=== PATIENT | female | born 1980 | race Caucasian/White ===

== ENCOUNTER 2016-08-03 17:58 | Emergency (ER) | payer BC, OTHER ==
[~2016-08-03] VITALS: Ht 177.8 cm; Wt 90.7 kg
[~2016-08-03 17:58] MED LIST: CEPH250T PO; DICY20TA57 PO; DOXY100C2 PO; GABA-488 PO; IPRA3AMP19 IH; METH4TAB PO; OMEP20TA2 PO; ORPH100T PO; OXYC-191 PO; PRCD5U GT; PRD20T PO; SPIR25TA3; TRAM50TA2 PO
--- OUTSIDE RECORDS SUMMARY | 2016-08-03 18:04 | XMS REPORT | Continuity of Care Document ---
Author Author [facility] Organization [facility] Address Unknown Phone Unavailable Care Team Providers Care Forestry Professor Name Role Phone MARISEL IVY MD PCP Insurance Providers Payer Name Policy Number Subscriber Name Relationship [facility] [id number] Errol Ramos 17 Self / Same As Patient Advance Directives Directive Response Recorded Date/Time Advance Directives No 03/11/14 4:05pm Organ Donor No 03/11/14 4:05pm Resuscitation Status Full Code 03/11/14 4:05pm Problems Medical Problems Problem Onset Date Status Cervical radiculopathy due to intervertebral disc disorder Unknown Active Cervical radiculopathy at C5 Unknown Active Cervical radiculopathy at C6 Unknown Active Cervical radiculopathy due to intervertebral disc disorder Unknown Active Medications Medication Dose Route Sig Days/Qty Instructions Order Date Discontinued Date Status Doxycycline Hyclate (Vibramycin) 1 Each PO TWICE A DAY 10 Days 09/04/12 Discontinued Tramadol Hcl 50 Mg PO EVERY 6 HOURS 20 Qty 11/01/12 05/07/13 Discontinued Dicyclomine Hcl 1 Each PO BEFORE MEALS AND AT BEDTIME PRN 30 Qty 05/07/13 Discontinued Cephalexin Monohydrate (Keflex) 1 Each PO GIVE EVERY 6 HR ON SCHEDULE 3 Days 05/07/13 03/11/14 Discontinued Oxycodone Hcl/Acetaminophen 1 Tab PO EVERY 6 HOURS For PAIN 03/11/14 Active Gabapentin 300 Mg PO DAILY 03/11/14 Active Methylprednisolone 0 PO DIRECTED 1 Qty 03/11/14 Active Orphenadrine Citrate 100 Mg PO TWICE A DAY 10 Qty FOR MUSCLE SPASMS 03/11 Active Social History Social History Problem Response Recorded Date/Time Alcohol Use Denies Use 03/11/2014 4:05pm Recreational Drug Use No 03/11/2014 4:05pm Sexually Transmitted Disease No 03/11/2014 4:05pm Smoking Status Current Everyday Smoker 03/11/2014 4:05pm Query Response Start Date Stop Date Smoking Status Current Everyday Smoker Hospital Discharge Instructions No hospital discharge instructions. Plan of Care No plan of care. Functional Status No functional status results. Allergies, Adverse Reactions, Alerts Allergen Type Severity Reaction Status Last Updated Penicillins ([id number]) Allergy Mild Active 09/03/12 Immunizations Name Given Type Tetanus Booster (TDap) More than 5yrs Historical Vital Signs Acute Vital Signs Vital Response Date/Time Temperature (Fahrenheit) 98.4 degrees F (97.6 - 99.5) Temperature (Calculated Celsius) 36.62590 degrees C (36.4 - 37.5) Pulse Rate (adult) 80 bpm (60 - 90) Respiratory Rate 20 bpm (12 - 24) O2 Sat by Pulse Oximetry 97 % (88 - 100) Blood Pressure 117/72 mm Hg Pain Pain Intensity 7 Height (Feet) 5 feet Height (Inches) 10 inches Height (Calculated Centimeters) 177.714941 cm Weight (Pounds) 200 pounds Weight (Calculated Kilograms) 90.633851 kilograms Calculated BMI 28.69 Results Test Source Date Result Interp. Ref. Range Comments Acetaminophen Screen January 30, 2009 4:22am NEGATIVE - APAP= ACETAMINOPHEN/PARACETAMOL Activated Partial Thromboplast Time March 11, 2014 4:15pm 28 SEC N 24- 35 Alanine Aminotransferase (ALT/SGPT) March 11, 2014 4:15pm 13 U/L N 0- 55 Albumin March 11, 2014 4:15pm 3.8 G/DL N 3.2-4.5 Alkaline Phosphatase March 11, 2014 4:15pm 64 U/L N 40-136 Amylase Level March 11, 2014 4:15pm 40 U/L N 25-125 Anti-Nuclear Antibody Screen May 24, 2013 11:26am <1:80 - IF KRISTIE SCREEN POSITIVE TITER AND PATTERN WILL FOLLOW.Interpretative data is available online at: [email or web address] Test Number:[id number] Aspartate Amino Transf (AST/SGOT) March 11, 2014 4:15pm 13 U/L N 5-34 B-Type Natriuretic Peptide January 30, 2009 4:10am < 5.0 PG/ML L 5.0-100.0 BUN/Creatinine Ratio March 11, 2014 4:15pm 12 - Basophils # (Auto) March 11, 2014 4:15pm 0.0 10^3/uL N 0.0-0.1 Basophils (%) (Auto) March 11, 2014 4:15pm 0 % N 0-10 Blood Urea Nitrogen March 11, 2014 4:15pm 9 MG/DL N 7-18 C-Reactive Protein May 24, 2013 11:26am 0.5 MG/DL N 0.2-0.9 Calcium Level March 11, 2014 4:15pm 9.4 MG/DL N 8.5-10.1 Carbon Dioxide Level March 11, 2014 4:15pm 24 MMOL/L N 21-32 Chloride Level March 11, 2014 4:15pm 107 MMOL/L N 98-107 Creatine Kinase MB March 11, 2014 4:15pm 1.0 NG/ML - Creatinine March 11, 2014 4:15pm 0.74 MG/DL N 0.60-1.30 Eosinophils # (Auto) March 11, 2014 4:15pm 0.1 10^3/uL N 0.0-0.3 Eosinophils (%) (Auto) March 11, 2014 4:15pm 1 % N 0-10 Glucose Level March 11, 2014 4:15pm 106 MG/DL H 70-105 Hematocrit March 11, 2014 4:15pm 40 % N 35-52 Hemoglobin March 11, 2014 4:15pm 14.7 G/DL N 11.5-16.0 Lipase March 11, 2014 4:15pm 36 U/L N 8-78 Lymphocytes # (Auto) March 11, 2014 4:15pm 4.1 X 10^3 H 1.0-4.0 Lymphocytes (%) (Auto) March 11, 2014 4:15pm 46 % H 12-44 Magnesium Level September 04, 2012 12:10am 1.9 MG/DL N 1.8-2.4 Has specimen been collected/obtained? Y Mean Corpuscular Hemoglobin March 11, 2014 4:15pm 31 PG N 25-34 Mean Corpuscular Hemoglobin Concent March 11, 2014 4:15pm 36 G/DL N 32- 36 Mean Corpuscular Volume March 11, 2014 4:15pm 86 FL N 80-99 Mean Platelet Volume March 11, 2014 4:15pm 9.5 FL N 7.4-10.4 Monocytes # (Auto) March 11, 2014 4:15pm 0.5 X 10^3 N 0.0-1.0 Monocytes (%) (Auto) March 11, 2014 4:15pm 5 % N 0-12 Myoglobin September 04, 2012 12:10am 20 UG/L N 10-92 Has specimen been collected/obtained? Y Neutrophils # (Auto) March 11, 2014 4:15pm 4.3 X 10^3 N 1.8-7.8 Neutrophils (%) (Auto) March 11, 2014 4:15pm 48 % N 42-75 Platelet Count March 11, 2014 4:15pm 290 10^3/uL N 130-400 Potassium Level March 11, 2014 4:15pm 3.7 MMOL/L N 3.6-5.0 Prothromb Time International Ratio September 04, 2012 12:10am 1.0 N 0.8- 1.4 INTERPRETIVE DATASUGGESTED THERAPEUTIC RANGE FOR INR'S : VENOUS THROMBOSIS, PULMONARY EMBOLISM, OR PREVENTION OF SYSTEMIC EMBOLISM (EG. IN ATRIAL FIBRILLATION): 2.0 - 3.0 MECHANICAL PROSTHETIC HEART VALVES: 2.5 - 3.5* *NOTE: INR'S UP TO 4.5 MAY BE NECESSARY IN SELECTED GROUPS OF HIGH RISK PATIENTS. [employer] CONSENSUS CONFERENCE ON ANTITHROMBOTIC THERAPY (2000). Prothrombin Time March 11, 2014 4:15pm 12.3 SEC N 12.2-14.7 Red Blood Count March 11, 2014 4:15pm 4.68 10^6/uL N 4.35-5.85 Red Cell Distribution Width March 11, 2014 4:15pm 11.3 % N 10.0-14.5 Rheumatoid Factor May 24, 2013 11:26am NEGATIVE - Serum Test, Qualitative January 30, 2009 4:10am NEGATIVE - Sodium Level March 11, 2014 4:15pm 140 MMOL/L N 135-145 TSH [place] Testing December 04, 2013 10:01am 2.85 UIU/ML N 0.34-5.60 Thyroid Stimulating Hormone (TSH) September 04, 2012 12:10am 8.56 UIU/ML H 0.34-5.60 Total Bilirubin March 11, 2014 4:15pm 0.3 MG/DL N 0.1-1.0 Total Creatine Kinase March 11, 2014 4:15pm 39 U/L N 29-168 Total Protein March 11, 2014 4:15pm 6.9 G/DL N 6.4-8.2 Troponin I March 11, 2014 4:15pm < 0.30 NG/ML - Ur Tricyclic Antidepressants Screen January 30, 2009 4:22am NEGATIVE - Urine Amorphous Sediment January 30, 2009 4:22am RARE MICHAEL URATES H - Has specimen been collected/obtained? YSpecimen Description CLEAN CATCH Urine Amphetamines Screen January 30, 2009 4:22am NEGATIVE - Urine Bacteria November 01, 2012 3:10am TRACE /HPF - Has specimen been collected/obtained? YSpecimen Description CLEAN CATCH Urine Barbiturates Screen January 30, 2009 4:22am NEGATIVE - Urine Benzodiazepines Screen January 30, 2009 4:22am NEGATIVE - Urine Bilirubin November 01, 2012 3:10am NEGATIVE - Has specimen been collected/obtained? YSpecimen Description CLEAN CATCH Urine Casts November 01, 2012 3:10am NONE /LPF - Has specimen been collected/obtained? YSpecimen Description CLEAN CATCH Urine Clarity November 01, 2012 3:10am SLIGHTLY CLOUDY - Has specimen been collected/obtained? YSpecimen Description CLEAN CATCH Urine Cocaine Screen January 30, 2009 4:22am NEGATIVE - Urine Color November 01, 2012 3:10am YELLOW - Has specimen been collected/obtained? YSpecimen Description CLEAN CATCH Urine Crystals November 01, 2012 3:10am NONE /LPF - Has specimen been collected/obtained? YSpecimen Description CLEAN CATCH Urine Culture Indicated November 01, 2012 3:10am NO - Has specimen been collected/obtained? YSpecimen Description CLEAN CATCH Urine Glucose (UA) November 01, 2012 3:10am NEGATIVE - Has specimen been collected/obtained? YSpecimen Description CLEAN CATCH Urine Ketones November 01, 2012 3:10am NEGATIVE - Has specimen been collected/obtained? YSpecimen Description CLEAN CATCH Urine Leukocyte Esterase November 01, 2012 3:10am TRACE H - Has specimen been collected/obtained? YSpecimen Description CLEAN CATCH Urine Methamphetamines Screen January 30, 2009 4:22am NEGATIVE - Urine Mucus November 01, 2012 3:10am MODERATE /LPF H - Has specimen been collected/obtained? YSpecimen Description CLEAN CATCH Urine Nitrite November 01, 2012 3:10am NEGATIVE - Has specimen been collected/obtained? YSpecimen Description CLEAN CATCH Urine Opiates Screen January 30, 2009 4:22am NEGATIVE - Urine Phencyclidine Screen January 30, 2009 4:22am NEGATIVE - Phencyclidine testing by this method can showcross-reactivity with several common medications such as venlafaxine, dextromethorphan, and diphenhydramine. Submission of any positive sample for confirmatory testing is recommended. Urine Protein November 01, 2012 3:10am NEGATIVE - Has specimen been collected/obtained? YSpecimen Description CLEAN CATCH Urine RBC November 01, 2012 3:10am NONE /HPF - Has specimen been collected/obtained? YSpecimen Description CLEAN CATCH Urine Specific [place] November 01, 2012 3:10am 1.030 H - Has specimen been collected/obtained? YSpecimen Description CLEAN CATCH Urine Squamous Epithelial Cells November 01, 2012 3:10am 25-50 /HPF H - Has specimen been collected/obtained? YSpecimen Description CLEAN CATCH Urine Urobilinogen November 01, 2012 3:10am NORMAL MG/DL - Has specimen been collected/obtained? YSpecimen Description CLEAN CATCH Urine WBC November 01, 2012 3:10am RARE /HPF - Has specimen been collected/obtained? YSpecimen Description CLEAN CATCH Urine pH November 01, 2012 3:10am 5 - Has specimen been collected/ obtained? YSpecimen Description CLEAN CATCH White Blood Count March 11, 2014 4:15pm 9.1 10^3/uL N 4.3-11.0 Pro-B-Type Natriuretic Peptide March 11, 2014 4:15pm < 10.0 PG/ML - 125.0 Lab Scanned Report September 03, 2012 11:09pm LAB Reports [id number] - Estimat Glomerular Filtration Rate March 11, 2014 4:15pm > 60 - GFR INTERPRETIVE DATA UNITS FOR ESTIMATED GFR (eGFR): mL/min/1.73 M2 REFERENCE RANGE FOR ESTIMATED GFR (eGFR) eGFR NORMAL eGFR >60 MODERATELY DECREASED eGFR 30-59 SEVERLY DECREASED eGFR 15-29 KIDNEY FAILURE <15 (OR DIALYSIS) Urine Methadone Screen January 30, 2009 4:22am NEGATIVE - Creatine Kinase September 04, 2012 12:10am 30 U/L N 1-159 Has specimen been collected/obtained? Y Urine Cannabinoids Screen January 30, 2009 4:22am NEGATIVE - Cardiac Panel Pathologist Review September 04, 2012 12:10am SEE CARDIAC PATH REV - Has specimen been collected/obtained? Y Urine RBC (Auto) November 01, 2012 3:10am 2+ H - Has specimen been collected/obtained? YSpecimen Description CLEAN CATCH INR Comment March 11, 2014 4:15pm 0.9 N 0.8-1.4 INTERPRETIVE DATASUGGESTED THERAPEUTIC RANGE FOR INR'S: VENOUS THROMBOSIS, PULMONARY EMBOLISM, OR PREVENTION OF SYSTEMIC EMBOLISM (EG. IN ATRIAL FIBRILLATION): 2.0 - 3.0 MECHANICAL PROSTHETIC HEART VALVES: 2.5 - 3.5* *NOTE: INR'S UP TO 4.5 MAY BE NECESSARY IN SELECTED GROUPS OF HIGH RISK PATIENTS. [employer] CONSENSUS CONFERENCE ON ANTITHROMBOTIC THERAPY (2000). Procedures Procedure Status Date Provider(s) Tracing only of electrocardiogram completed 03/11/14 LONNIE LUTZ DO Encounters Encounter Location Date/Time Departed Emergency Room Via [facility] 03/11/14 3:49pm Recent Diagnosis
[2016-08-03] MEDS ORDERED: SPIR50TA2 (19:13)
[2016-08-03 19:39] LABS: BILIRUBIN,URINE NEGATIVE (NEGATIVE); KETONES,URINE NEGATIVE (NEGATIVE); LEUKOCYTE ESTERASE ,URINE NEGATIVE (NEGATIVE); NITRITE,URINE NEGATIVE (NEGATIVE); PH,URINE 6 (5-9); PROTEIN,URINE NEGATIVE (NEGATIVE); UROBILINOGEN,URINE NORMAL (NORMAL)
[2016-08-03 19:48] LABS: WBC,URINE RARE /HPF
[2016-08-03 20:29] LABS: BASOPHILS % (AUTO) 0 % (0-10); EOSINOPHILS # (AUTO) 0.2 10^3/uL (0.0-0.3); EOSINOPHILS % (AUTO) 1 % (0-10); LYMPHOCYTES # (AUTO) 4.5 X 10^3 (1.0-4.0); LYMPHOCYTES % (AUTO) 34 % (12-44); MEAN CORPUSCULAR HEMOGLOBIN 30 PG (25-34); MEAN CORPUSCULAR HGB CONC 36 G/DL (32-36); MEAN CORPUSCULAR VOLUME 84 FL (80-99); MEAN PLATELET VOLUME 8.9 FL (7.4-10.4); MONOCYTES # (AUTO) 0.8 X 10^3 (0.0-1.0); MONOCYTES % (AUTO) 6 % (0-12); NEUTROPHILS # (AUTO) 7.8 X 10^3 (1.8-7.8); NEUTROPHILS % (AUTO) 59 % (42-75); PLATELET COUNT 327 10^3/uL (130-400); RED BLOOD COUNT 5.08 10^6/uL (4.35-5.85); RED CELL DISTRIBUTION WIDTH 11.8 % (10.0-14.5); WHITE BLOOD COUNT 13.3 10^3/uL (4.3-11.0)
[2016-08-03] MEDS ORDERED: ONDANSETRON 4 MG/2 ML (SDV) Z0FRAN IVP ONE (20:30)
[2016-08-03 20:50] LABS: ALANINE AMINOTRANSFERASE 21 U/L (0-55); ALBUMIN 4.3 G/DL (3.2-4.5); AMYLASE 49 U/L (25-125); ANION GAP 10 MMOL/L (5-14); ASPARTATE AMINO TRANSFERASE 15 U/L (5-34); BILIRUBIN,TOTAL 0.4 MG/DL (0.1-1.0); BLOOD UREA NITROGEN 8 MG/DL (7-18); BUN/CREATININE RATIO 11; CALCIUM 9.6 MG/DL (8.5-10.1); CARBON DIOXIDE 23 MMOL/L (21-32); CHLORIDE 106 MMOL/L (98-107); CREATININE SERUM 0.76 MG/DL (0.60-1.30); GFR ESTIMATED > 60; GLUCOSE 90 MG/DL (70-105); LIPASE 44 U/L (8-78); POTASSIUM 4.1 MMOL/L (3.6-5.0); SODIUM 139 MMOL/L (135-145); TOTAL PROTEIN 7.4 G/DL (6.4-8.2)
[2016-08-03] MEDS ORDERED: LACTATED RINGERS 1,000 ML IV ONE (20:54)
--- NOTE | 2016-08-03 21:50 | Diagnostic Imaging Report ---
INDICATION: Left-sided chest pain. Comparison with 11/25/2015. FINDINGS: Lungs are clear. No evidence of free air under the diaphragm. There is moderate amount of stool present throughout the colon from the cecum to the descending colon. No organomegaly. Surgical clips noted in the biliary fossa. No pathologic calcification. IUD is present in the pelvis in the midline. No bony abnormalities. IMPRESSION: Moderate stool retention in the ascending and transverse colon with otherwise normal abdominal series. Dictated by: Dictated on workstation # [id number]
[2016-08-03] MEDS ORDERED: NS 100 ML (IVPB) BAG IV ONE (22:00)
[2016-08-03] MEDS ORDERED: IOHEXOL 350 MG/ML 100 ML (OMNIPAQUE 350) VIAL IV ONE (22:00)
--- NOTE | 2016-08-03 22:02 | Diagnostic Imaging Report ---
PROCEDURE: CT abdomen and pelvis with contrast. TECHNIQUE: Multiple contiguous axial images were obtained through the abdomen and pelvis after administration of intravenous contrast. INDICATION: Left-sided pain and epigastric pain. FINDINGS: The lung bases are clear. Liver appears normal. Bile ducts are nondilated. Gallbladder is absent. Pancreas is normal. Spleen appears normal. The adrenal glands are normal. The kidneys appear normal. There is normal enhancement of the abdominal organs and vessels following IV contrast. No evidence of aortic aneurysm or dissection. No intra-abdominal adenopathy of pathologic size. The stomach appears normal. No evidence of hiatal hernia. Small bowel pattern is normal. Colon shows normal stool and gas pattern throughout. The appendix is normal in appearance. The colon shows a few diverticuli with no evidence of diverticulitis. Uterus appears normal with IUD present within the uterine cavity. No adnexal masses. No free air or free fluid. No bony abnormalities. IMPRESSION: No acute abnormalities noted within the abdomen. Dictated by: Dictated on workstation # [id number]
[2016-08-03] MEDS ORDERED: RX-DICYCLOMINE 10 MG (BENTYL) CAP PPK#4 PO STA (22:18)
[2016-08-03] MEDS ORDERED: RX-ONDANSETRON 4 MG ODT (ZOFRAN) PPK #4 PO STA (22:18)
[2016-08-03] MEDS ORDERED: PANT40TA2 PO (22:22)
[2016-08-03] MEDS ORDERED: DICY10CA59 PO (22:22)
[2016-08-03] MEDS ORDERED: ONDA4TAB8 PO (22:22)
--- NOTE | 2016-08-03 22:22 | ED Abdominal Pain ---
General Chief Complaint: Abdominal/GI Problems Stated Complaint: ABD PAIN,NAUSEA Nursing Triage Note: c/o epigastric pain and burning for a couple weeks, reports pain is worse when laying down. states tried to get into Dr. the past couple days but wasn't able to be seen. Sepsis Screen: No Definite Risk Source of Information: Patient History of Present Illness Time Seen By Provider: 19:35 Initial Comments PT C/O EPIGASTRIC, LEFT UPPER QUADRANT AND LEFT FLANK PAIN SINCE 07/20/16 PAIN WAS OFF AND ON AND HAS GRADUALLY BECOME CONSTANT, AND IS WORSE WITH MOVEMENTS, AFTER EATING OR DRINKING OR AFTER BM PAIN IS WORSE SINCE 07/27/16 C/O NAUSEA, NO VOMITING. ATE BREAKFAST AND LUNCH, BUT NOT DINNER. NO DIARRHEA--HAD 2 NORMAL BM'S TODAY. STATES NORMALLY SHE ONLY HAS A BM EVERY 3 DAYS. NO FEVER NO URINARY SYMPTOMS AND VOIDING A NORMAL AMOUNT NO SICK CONTACTS OR SUSPICIOUS FOODS HAS TAKEN NOTHING FOR PAIN PT STATES SHE HASN'T BEEN SLEEPING MUCH DUE TO PAIN PT BRINGS IN A LIST OF COMPLAINTS/DATES/TIMES WELL DETAILED SLEEP HABITS. PT CALLED DR. IVY'S OFFICE YESTERDAY, BUT COULD NOT GET IN YESTERDAY OR TODAY , BUT DID NOT MAKE AN APPOINTMENT FOR ANY OTHER TIME. LMP 1 MONTH AGO, NORMAL. PT HAS IUD IN PLACE Allergies and Home Medications Allergies Coded Allergies: Penicillins (Verified Allergy, Mild, 05/29/16) sulfamethoxazole (Unverified Allergy, Unknown, 05/29/16) trimethoprim (Unverified Allergy, Unknown, 05/29/16) Home Medications Dicyclomine HCl 10 Mg Capsule #15 10 MG PO Q6H PRN PRN ABDOMINAL PAIN Prescribed by: LONNIE LUTZ on 08/03/162221 Ondansetron 4 Mg Tab.rapdis #10 4 MG PO Q4H Prescribed by: LONNIE LUTZ on 08/03/162221 Pantoprazole Sodium 40 Mg Tablet.dr #15 40 MG PO DAILY Prescribed by: LONNIE LUTZ on 08/03/162221 Spironolactone 50 Mg Tablet #30 (Reported) Review of Systems Constitutional: no symptoms reported Respiratory: No Symptoms Reported Cardiovascular: No Symptoms Reported Gastrointestinal: See HPI Abdominal PainDenies Constipated, Denies Diarrhea, NauseaDenies Poor Appetite, Denies Poor Fluid Intake, Denies Vomiting Past [place]-Ahyjow-Dxiojn Hx Patient Social History Alcohol Use: Denies Use Recreational Drug Use: No Smoking Status: Former Smoker (1 PACK/WEEK--QUIT 2013) Recent Foreign Travel: No Contact w/Someone Who Travel: No Recent Infectious Disease Expo: No Recent Hopitalizations: No Physical Abuse Screen: No Sexual Abuse: No Immunizations Up To Date Tetanus Booster (TDap): More than 5yrs Seasonal Allergies Seasonal Allergies: No Surgeries HX 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 ; NECK; X 2) Surgeries: Section, Gallbladder, Orthopedic Respiratory Hx Respiratory Disorders: No Cardiovascular Hx Cardiac Disorders: No Neurological Hx Neurological Disorders: No Reproductive System Hx Reproductive Disorders: Yes (TAKES SPIRONOLACTONE TO "REGULATE HORMONES" ) Sexually Transmitted Disease: No Female Reproductive Disorders: Menstrual Problems CIVIL ATTORNEY History: IUD Genitourinary Hx Genitourinary Disorders: No Gastrointestinal Hx Gastrointestinal Disorders: Yes Gastrointestinal Disorders: Gall Bladder Disease Musculoskeletal Hx Musculoskeletal Disorders: Yes (SPINAL STENOSIS) Musculoskeletal Disorders: Degenerate Disk Disease, Chronic Back Pain Endocrine Hx Endocrine Disorders: No HEENT HX ENT Disorders: No Cancer Hx Cancer: No Psychosocial Hx Psychiatric Problems: No Integumentary HX Skin/Integumentary Disorder: No Blood Transfusions Hx Blood Disorders: No Family Medical History Significant Family History: Heart Disease, Cancer, Diabetes Physical Exam Vital Signs VS - Last 72 Hours, by Label 08/03/16 08/03/16 19:11 22:36 Temp 98.8 Pulse 84 82 Resp 18 16 B/P 166/79 Pulse Ox 97 99 Capillary Refill : Less Than 3 Seconds General Appearance: WD/WN no apparent distress other (DOES NOT APPEAR TO BE IN ANY DISCOMFORT--SITTING ON BED WITH LEGS DANGLING OVER THE SIDE. WALKS UPRIGHT AND MOVES WITHOUT DIFFICULTY) HEENT: PERRL/EOMINo scleral icterus (R), No scleral icterus (L) Neck: normal inspection Respiratory: normal breath sounds no respiratory distress no accessory muscle use Cardiovascular: normal peripheral pulses regular rate, rhythm no edema no JVD no murmur Gastrointestinal: normal bowel sounds soft no organomegaly no pulsatile massNo distended, No guarding, No rebound, tenderness (MILD, DIFFUSE UPPER ABDOMINAL TENDERNESS. 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 no motor/sensory deficits alert normal mood/affect oriented x 3 Skin: normal color warm/dryNo rash Progress/Results/Core Measures Results/Orders Lab Results Laboratory Tests Test 08/03/16 19:15 08/03/16 20:23 Range/Units Urine Bacteria TRACE /HPF Urine Bilirubin NEGATIVE NEGATIVE Urine Casts NONE /LPF Urine Clarity CLEAR Urine Color YELLOW Urine Crystals NONE /LPF Urine Culture Indicated NO Urine Glucose (UA) NEGATIVE NEGATIVE Urine Ketones NEGATIVE NEGATIVE Urine Leukocyte Esterase NEGATIVE NEGATIVE Urine Mucus NEGATIVE /LPF Urine Nitrite NEGATIVE NEGATIVE Urine Protein NEGATIVE NEGATIVE Urine RBC RARE /HPF Urine RBC (Auto) 2+ H NEGATIVE Urine Specific [place] 1.010 L 1.016-1.022 Urine Squamous Epithelial Cells 2-5 /HPF Urine Urobilinogen NORMAL NORMAL MG/DL Urine WBC RARE /HPF Urine pH 6 5-9 Alanine Aminotransferase (ALT/SGPT) 21 0-55 U/L Albumin 4.3 3.2-4.5 G/DL Alkaline Phosphatase 91 40-136 U/L Amylase Level 49 25-125 U/L Anion Gap 10 5-14 MMOL/L Aspartate Amino Transf (AST/SGOT) 15 5-34 U/L BUN/Creatinine Ratio 11 Basophils # (Auto) 0.0 0.0-0.1 10^3/uL Basophils (%) (Auto) 0 0-10 % Blood Urea Nitrogen 8 7-18 MG/DL Calcium Level 9.6 8.5-10.1 MG/DL Carbon Dioxide Level 23 21-32 MMOL/L Chloride Level 106 98-107 MMOL/L Creatinine 0.76 0.60-1.30 MG/DL Eosinophils # (Auto) 0.2 0.0-0.3 10^3/uL Eosinophils (%) (Auto) 1 0-10 % Estimat Glomerular Filtration Rate > 60 Glucose Level 90 70-105 MG/DL Hematocrit 43 35-52 % Hemoglobin 15.4 11.5-16.0 G/DL Lipase 44 8-78 U/L Lymphocytes # (Auto) 4.5 H 1.0-4.0 X 10^3 Lymphocytes (%) (Auto) 34 12-44 % Mean Corpuscular Hemoglobin 30 25-34 PG Mean Corpuscular Hemoglobin Concent 36 32-36 G/DL Mean Corpuscular Volume 84 80-99 FL Mean Platelet Volume 8.9 7.4-10.4 FL Monocytes # (Auto) 0.8 0.0-1.0 X 10^3 Monocytes (%) (Auto) 6 0-12 % Neutrophils # (Auto) 7.8 1.8-7.8 X 10^3 Neutrophils (%) (Auto) 59 42-75 % Platelet Count 327 130-400 10^3/uL Potassium Level 4.1 3.6-5.0 MMOL/L Red Blood Count 5.08 4.35-5.85 10^6/uL Red Cell Distribution Width 11.8 10.0-14.5 % Sodium Level 139 135-145 MMOL/L Total Bilirubin 0.4 0.1-1.0 MG/DL Total Protein 7.4 6.4-8.2 G/DL White Blood Count 13.3 H 4.3-11.0 10^3/uL My Orders Orders-LONNIE LUTZ DO Ua Culture If Indicated (08/03/16 19:35) Saline Lock/Iv-Start (08/03/16 19:53) Amylase (08/03/16 19:53) Cbc With Automated Diff (08/03/16 19:53) Comprehensive Metabolic Panel (08/03/16 19:53) Lipase (08/03/16 19:53) Ondansetron Injection (Zofran Injectio (08/03/16 20:30) Saline Lock/Iv-Start (08/03/16 20:54) Lactated Ringers (Lr 1000 Ml Iv Solution (08/03/16 20:54) Acute Abd Series (08/03/16 21:19) Ct Abdomen/Pelvis W (08/03/16 21:19) Iohexol Injection (Omnipaque 350 Mg/Ml 1 (08/03/16 22:00) Ns (Ivpb) (Sodium Chloride 0.9% Ivpb Bag (08/03/16 22:00) Rx-Dicyclomine Capsule (Rx-Bentyl Capsul (08/03/16 22:18) Rx-Ondansetron Po (Rx-Zofran Po) (08/03/16 22:18) Ketorolac Injection (Toradol Injection) (08/03/16 22:30) Pantoprazole Tablet (Protonix Tablet) (08/03/16 22:30) Medications Given in ED Current Medications Medications Dose Ordered Sig/Jacklyn Route Start Time Stop Time Status Last Admin Dose Admin Ketorolac Tromethamine 30 mg ONCE ONCE IVP 08/03/16 22:30 08/03/16 22:31 DC 08/03/16 22:25 30 MG Lactated Ringer's 1,000 ml @ 0 mls/hr Q0M ONCE IV 08/03/16 20:54 08/03/16 20:55 DC 08/03/16 21:04 0 MLS/HR Ondansetron HCl 4 mg 4 mg ONCE ONCE IVP 08/03/16 20:30 08/03/16 20:31 DC 08/03/16 21:04 4 MG Pantoprazole Sodium 40 mg ONCE ONCE PO 08/03/16 22:30 08/03/16 22:31 DC 08/03/16 22:25 40 MG Vital Signs/I&O Vital Sign - Last 12Hours 08/03/16 08/03/16 19:11 22:36 Temp 98.8 Pulse 84 82 Resp 18 16 B/P 166/79 Pulse Ox 97 99 Blood Pressure Mean: 108 Diagnostic Imaging Comments ACUTE ABDOMEN XRAYS--NO ACUTE PROCESS CT ABDOMEN/PELVIS--NO ACUTE PROCESS, MODERATE AMOUNT OF STOOL IN ASCENDING AND TRANSVERSE COLON PER RADIOLOGIST REPORTS @ 2214 Reviewed: Reviewed by Me Departure Impression Impression: Primary Impression: ABDOMINAL PAIN Disposition: 01 HOME, SELF-CARE Condition: Improved Departure-Patient Inst. Referrals: MARISEL IVY MD (PCP/Family) Primary Care Physician Patient Instructions: Acute Abdomen (Belly Pain), Adult (DC) Add. Discharge Instructions: CLEAR LIQUIDS--WATER, BROTH, JELLO, GATORADE BRATS DIET--BANANAS, RICE, APPLESAUCE, TOAST, SALTINES FOLLOW UP WITH YOUR DR THIS WEEK FOR FURTHER CARE All discharge instructions reviewed with patient and/or family. Voiced understanding. Scripts Pantoprazole Sodium (Protonix)40 Mg Tablet.dr40 Mg PO DAILY #15 TAB Prov:BOLIVARLONNIE K DO 08/03/16 Dicyclomine HCl (Bentyl)10 Mg [id number] Mg PO Q6H PRN ABDOMINAL PAIN #15 CAP Prov:BOLIVAR,LONNIE K DO 08/03/16 Ondansetron (Zofran Odt)4 Mg Tab.rapdis4 Mg PO Q4H Nausea/Vomiting #10 TAB Prov:LONNIE LUTZ DO 08/03/16 LONNIE LUTZ DO Aug 03, 2016 22:22
[2016-08-03] MEDS ORDERED: KETOROLAC 30 MG/ML VIAL IVP ONE (22:30)
[2016-08-03] MEDS ORDERED: PANTOPRAZOLE 40 MG (PROTONIX) TAB PO ONE (22:30)
[2016-08-03 22:36] VITALS: BP 114/69
== END 2016-08-03 22:43 | disposition home or self-care (01) ==
LOC: EDUNIT# 17:58 → ER 18:00
DX: R10.12 Left upper quadrant pain (principal); R10.13 Epigastric pain; K59.00 Constipation, unspecified; R11.0 Nausea
CPT/HCPCS: 36415; 74022; 74177; 80053; 81000; 82150; 83690; 85025; 96361; 96374; 96375

== ENCOUNTER 2016-10-30 22:57 | Emergency (ER) | payer BC ==
[~2016-10-30] VITALS: Ht 170.2 cm; Wt 86.2 kg
[~2016-10-30 22:57] MED LIST changes: +DICY10CA59 PO; +ONDA4TAB8 PO; +PANT40TA2 PO; +SPIR50TA2
[2016-10-30] MEDS ORDERED: TETANUS,DIPTH,PERTUSS P/F (BOOSTRIX) 0.5 ML VIAL IM STA (23:46)
--- NOTE | 2016-10-30 23:53 | ED Upper Extremity ---
General Chief Complaint: Laceration Stated Complaint: LEFT THUMB LACERATION Source: patient Exam Limitations: no limitations History of Present Illness Time seen by provider: 23:36 Initial Comments Here with complaint of laceration to the top of the left thumb. It's on the dorsal surface. Approximately 3 cm and superficial. No other injuries. Tetanus is not up-to-date. This was cut on a medication lid. Onset: just prior to arrival Severity: mild Pain/Injury Location: left thumb Method of Injury: incised Modifying Factors: Improves With Immobilization, Worse With Movement Allergies and Home Medications Allergies Coded Allergies: Penicillins (Verified Allergy, Mild, 05/29/16) sulfamethoxazole (Unverified Allergy, Unknown, 05/29/16) trimethoprim (Unverified Allergy, Unknown, 05/29/16) Home Medications Dicyclomine HCl 10 Mg Capsule, 10 MG PO Q6H PRN for ABDOMINAL PAIN, #15 Prescribed by: LONNIE LUTZ on 08/03/16 2222 Ondansetron 4 Mg Tab.rapdis, 4 MG PO Q4H, #10 Prescribed by: LONNIE LUTZ on 08/03/16 2222 Pantoprazole Sodium 40 Mg Tablet.dr, 40 MG PO DAILY, #15 Prescribed by: LONNIE LUTZ on 08/03/16 2222 Spironolactone 50 Mg Tablet, #30 (Reported) Constitutional: see HPI Respiratory: no symptoms reported Cardiovascular: no symptoms reported Skin: see HPI, lesions Psychiatric/Neurological: Denies Numbness, Denies Tingling, Denies Weakness Past Ezjphps-Vkfire-Vitvsn Hx Patient Social History Alcohol Use: Denies Use Recreational Drug Use: No Smoking Status: Never a Smoker Recent Foreign Travel: No Contact w/Someone Who Travel: No Recent Hopitalizations: No Immunizations Up To Date Tetanus Booster (TDap): Unknown Seasonal Allergies Seasonal Allergies: No Surgeries HX 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 ; NECK; X 2) Surgeries: Section, Gallbladder, Orthopedic Respiratory Hx Respiratory Disorders: No Cardiovascular Hx Cardiac Disorders: No Neurological Hx Neurological Disorders: No Reproductive System Hx Reproductive Disorders: Yes (TAKES SPIRONOLACTONE TO "REGULATE HORMONES" ) Sexually Transmitted Disease: No Female Reproductive Disorders: Menstrual 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 Genitourinary Hx Genitourinary Disorders: No Gastrointestinal Hx Gastrointestinal Disorders: Yes Gastrointestinal Disorders: Gall Bladder Disease Musculoskeletal Hx Musculoskeletal Disorders: Yes (SPINAL STENOSIS) Musculoskeletal Disorders: Degenerate Disk Disease, Chronic Back Pain Endocrine Hx Endocrine Disorders: No HEENT HX ENT Disorders: No Cancer Hx Cancer: No Psychosocial Hx Psychiatric Problems: No Integumentary HX Skin/Integumentary Disorder: No Blood Transfusions Hx Blood Disorders: No Reviewed Nursing Assessment Reviewed/Agree w Nursing PMH: Yes Family Medical History Significant Family History: Heart Disease, Cancer, Diabetes Physical Exam Vital Signs Vital Sign - Last 12Hours 10/30/16 23:40 Temp 97.8 Pulse 86 Resp 18 B/P (MAP) 105/82 Pulse Ox 100 O2 Delivery Room Air Capillary Refill : General Appearance: WD/WN, no apparent distress Cardiovascular: regular rate, rhythm, no murmur Respiratory: lungs clear, normal breath sounds Hand: Left, laceration (superficial laceration to the dorsum of the left thumb approximately 3 cm long.) Laceration Repair : Wound Location: Upper Extremities Other Wound Location Dorsum of left thumb Wound Length (cm): 3 Wound's Depth, Shape: superficial Other Closure Supply: Wound Adhesive Progress Wound is superficial. Skin glued applied for protective cover. This was done after patient wash hands thoroughly with soap and water. Progress/Results/Core Measures Results/Orders My Orders Orders - MICHAEL MCCLURE MD Dipht,Kristian(Acell),Tet Adult (Boostrix (10/30/16 23:46) Vital Signs/I&O Vital Sign - Last 12Hours 10/30/16 23:40 Temp 97.8 Pulse 86 Resp 18 B/P (MAP) 105/82 Pulse Ox 100 O2 Delivery Room Air Progress Note : Progress Note Seen and evaluated. Skin going to the left thumb. Tetanus ordered but found to be given in 2012 so did not needed. This was canceled. Discharged home with return precautions. Patient verbalize understanding instructions and agreement with plan. Departure Impression Impression: Primary Impression: Thumb laceration Qualified Codes: S61.012A - Laceration without foreign body of left thumb without damage to nail, initial encounter Disposition: HOME, SELF-CARE Condition: Improved Departure-Patient Inst. Decision time for Depature: 23:52 Referrals: MARISEL IVY MD (PCP/Family) Primary Care Physician Patient Instructions: Laceration Repair With Glue (DC) Add. Discharge Instructions: All discharge instructions reviewed with patient and/or family. Voiced understanding. You may use splint for the next few days to prevent skin glue from prematurely coming off. Do not use antibiotics or lotions on the wound. You may shower but do not scrub vigorously. Do not soak hands for prolonged period in any body of water. Return for worse pain, swelling, red streaks up the hand, fever or other concerns as needed. Follow-up with your doctor as needed. MICHAEL MCCLURE MD Oct 30, 2016 23:53
[2016-10-31 00:20] VITALS: BP 105/82
== END 2016-10-31 00:20 | disposition home or self-care (01) ==
LOC: EDUNIT# 22:57 → ER 22:59
DX: S61.012A Laceration without foreign body of left thumb without damage to nail, initial encounter (principal); W45.8XXA Other foreign body or object entering through skin, initial encounter; Y99.8 Other external cause status

== ENCOUNTER 2017-11-19 10:14 | Emergency (ER) | payer BC ==
[~2017-11-19] VITALS: Ht 172.7 cm; Wt 88.5 kg
[2017-11-19 10:53] LABS: BILIRUBIN,URINE NEGATIVE (NEGATIVE); COLOR,URINE RED; GLUCOSE, URINE (UA) NEGATIVE (NEGATIVE); KETONES,URINE NEGATIVE (NEGATIVE); LEUKOCYTE ESTERASE ,URINE 3+ (NEGATIVE); NITRITE,URINE POSITIVE (NEGATIVE); PH,URINE 6.5 (5-9); PROTEIN,URINE 3+ (NEGATIVE); UROBILINOGEN,URINE NORMAL (NORMAL)
--- NOTE | 2017-11-19 10:54 | ED GU-Female ---
General Chief Complaint: -Female Stated Complaint: URINATING BLOOD Source: patient Exam Limitations: no limitations History of Present Illness Date Seen by Provider: November 19, 2017 Time Seen by Provider: 09:30 Initial Comments Here with report of dysuria with blood today. This is been going on for 5 days but worsened over the last 2. She had blood test and urine test on 15 November which did not show any significant findings. Noted the blood today with wiping. States that it hurts every time she urinates and feels like her typical urinary tract infection. Does have some nausea but no vomiting. Feels chills but no fever. Timing/Duration: getting worse Severity/Quality: mild, moderate, burning Location: suprapubic, urethral Radiation: suprapubic Activities at Onset: none Modifying Factors: Worsens With Urinating Associated Symptoms: abdominal pain, dysuria Allergies and Home Medications Allergies Coded Allergies: Penicillins (Verified Allergy, Mild, 05/29/16) sulfamethoxazole (Unverified Allergy, Unknown, 05/29/16) trimethoprim (Unverified Allergy, Unknown, 05/29/16) Patient Home Medication List Home Medication List Reviewed: Yes Review of Systems Constitutional: see HPI; No chills, No fever EENTM: no symptoms reported Respiratory: no symptoms reported Cardiovascular: no symptoms reported Gastrointestinal: nausea; No vomiting Genitourinary: dysuria, hematuria, pain : No Musculoskeletal: no symptoms reported Psychiatric/Neurological: No Symptoms Reported All Other Systemes Reviewed Negative Unless Noted: Yes Past Omwsduu-Ymezku-Jxtrnz Hx Past Med/Social Hx: Reviewed Nursing Past Med/Soc Hx Patient Social History Alcohol Use: Denies Use Recreational Drug Use: No Smoking Status: Never a Smoker Recent Foreign Travel: No Contact w/Someone Who Travel: No Recent Hopitalizations: No Immunizations Up To Date Tetanus Booster (TDap): Unknown Seasonal Allergies Seasonal Allergies: No Past Medical History Surgeries: Yes Section, Gallbladder, Orthopedic Reproductive Disorders: Yes (TAKES SPIRONOLACTONE TO "REGULATE HORMONES" ) Female 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 Sexually Transmitted Disease: No Gall Bladder Disease Musculoskeletal: Yes Degenerate Disk Disease, Chronic Back Pain Family Medical History Reviewed Nursing Family Hx Heart Disease, Cancer, Diabetes Physical Exam Vital Signs Vital Signs - First Documented 11/19/17 10:15 Temp 97.5 Pulse 96 Resp 16 B/P (MAP) 109/90 (96) Capillary Refill : General Appearance: WD/WN, no apparent distress Neck: full range of motion, supple Cardiovascular: regular rate, rhythm, no murmur Respiratory: lungs clear, normal breath sounds Gastrointestinal: soft, tenderness (mild suprapubic) Back: normal inspection, no CVA tenderness, no vertebral tenderness Extremities: non-tender, normal inspection Neurologic/Psychiatric: alert, oriented x 3 Progress/Results/Core Measures Suspected Sepsis SIRS Temperature: Pulse: Respiratory Rate: Blood Pressure / Mean: Results/Orders Lab Results Laboratory Tests Test 11/19/17 10:30 Range/Units Urine Color RED H Urine Clarity VERY CLOUDY H Urine pH 6.5 5-9 Urine Specific [place] 1.010 L 1.016-1.022 Urine Protein 3+ H NEGATIVE Urine Glucose (UA) NEGATIVE NEGATIVE Urine Ketones NEGATIVE NEGATIVE Urine Nitrite POSITIVE H NEGATIVE Urine Bilirubin NEGATIVE NEGATIVE Urine Urobilinogen NORMAL NORMAL MG/DL Urine Leukocyte Esterase 3+ H NEGATIVE Urine RBC (Auto) 5+ H NEGATIVE Urine RBC 25-50 H /HPF Urine WBC 50-100 H /HPF Urine Squamous Epithelial Cells RARE /HPF Urine Crystals NONE /LPF Urine Bacteria FEW H /HPF Urine Casts NONE /LPF Urine Mucus NEGATIVE /LPF Urine Culture Indicated YES My Orders Orders - MICHAEL MCCLURE MD Ua Culture If Indicated (11/19/17 10:19) Urine Culture (11/19/17 10:30) Ibuprofen Tablet (Motrin Tablet) (11/19/17 11:17) Phenazopyridine Tablet (Pyridium Tablet) (11/19/17 11:17) Vital Signs/I&O 11/19/17 10:15 Temp 97.5 Pulse 96 Resp 16 B/P (MAP) 109/90 (96) Capillary Refill : Progress Note : Progress Note Seen and evaluated. UA ordered. Monitor patient. UTI noted. Peridium and ibuprofen ordered for pain. We will treat as outpatient. Discharged home with return precautions. Patient verbalize understanding instructions and agreement with plan. Departure Impression Primary Impression: Urinary tract infection Qualified Codes: N30.01 - Acute cystitis with hematuria Disposition: HOME, SELF-CARE Condition: Improved Departure-Patient Inst. Decision time for Depature: 11:27 Referrals: MARISEL IVY MD (PCP/Family) Primary Care Physician Patient Instructions: Urinary Tract Infection, Adult (DC) Add. Discharge Instructions: All discharge instructions reviewed with patient and/or family. Voiced understanding. Take medications as directed. Follow up with your Dr. in a few days for recheck. Return for worse pain, fever, vomiting, weakness, breathing problems or other concerns as needed. Drink plenty of fluids. Scripts Phenazopyridine HCl (Pyridium) 100 Mg Tablet 100 MG PO TID PRN for PAIN-MILD TO MODERATE, #6 TAB Prov: MICHAEL MCCLURE MD 11/19/17 Nitrofurantoin Macrocrystal (Nitrofurantoin) 100 Mg Capsule 100 MG PO BID, #14 CAP 0 Refills Prov: MICHAEL MCCLURE MD 11/19/17 MICHAEL MCCLURE MD November 19, 2017 10:54
[2017-11-19 11:07] LABS: CLARITY,URINE VERY CLOUDY
[2017-11-19 11:08] LABS: BACTERIA,URINE FEW /HPF; RBC,URINE 25-50 /HPF; SQUAMOUS EPITHELIAL CELL,UR RARE /HPF; WBC,URINE 50-100 /HPF
[2017-11-19] MEDS ORDERED: PHENAZOPYRIDINE 100 MG (PYRIDIUM) TABLET PO STA (11:17)
[2017-11-19] MEDS ORDERED: IBUPROFEN 800 MG (MOTRIN) TAB PO STA (11:17)
[2017-11-19] MEDS ORDERED: PHEN-639 PO (11:30)
[2017-11-19] MEDS ORDERED: NITR100C PO (11:30)
[2017-11-19] MEDS ORDERED: ONDANSETRON 4 MG (ZOFRAN) ORAL DISSOLVE TAB SL STA (11:33)
[2017-11-19] MEDS ORDERED: ONDA4TAB11 PO (11:34)
[2017-11-19] MEDS ORDERED: NITROFURANTOIN 100 MG (MACROBID) CAPSULE PO ONE (12:00)
[2017-11-19 12:07] LABS: BASOPHILS % (AUTO) 0 % (0-10); EOSINOPHILS # (AUTO) 0.1 10^3/uL (0.0-0.3); EOSINOPHILS % (AUTO) 1 % (0-10); HEMATOCRIT 41 % (35-52); HEMOGLOBIN 14.9 G/DL (11.5-16.0); LYMPHOCYTES # (AUTO) 2.7 X 10^3 (1.0-4.0); LYMPHOCYTES % (AUTO) 25 % (12-44); MEAN CORPUSCULAR HEMOGLOBIN 30 PG (25-34); MEAN CORPUSCULAR HGB CONC 36 G/DL (32-36); MEAN CORPUSCULAR VOLUME 84 FL (80-99); MEAN PLATELET VOLUME 9.3 FL (7.4-10.4); MONOCYTES # (AUTO) 0.5 X 10^3 (0.0-1.0); MONOCYTES % (AUTO) 5 % (0-12); NEUTROPHILS # (AUTO) 7.3 X 10^3 (1.8-7.8); NEUTROPHILS % (AUTO) 68 % (42-75); PLATELET COUNT 299 10^3/uL (130-400); RED BLOOD COUNT 4.91 10^6/uL (4.35-5.85); RED CELL DISTRIBUTION WIDTH 11.4 % (10.0-14.5); WHITE BLOOD COUNT 10.7 10^3/uL (4.3-11.0)
[2017-11-19 12:23] LABS: BUN/CREATININE RATIO 12; CALCIUM 9.4 MG/DL (8.5-10.1); CARBON DIOXIDE 28 MMOL/L (21-32); CHLORIDE 104 MMOL/L (98-107); CREATININE SERUM 0.74 MG/DL (0.60-1.30); GFR ESTIMATED > 60; GLUCOSE 84 MG/DL (70-105); POTASSIUM 4.1 MMOL/L (3.6-5.0); SODIUM 138 MMOL/L (135-145)
[2017-11-19 13:51] VITALS: BP 109/90
== END 2017-11-19 13:51 | disposition home or self-care (01) ==
LOC: EDUNIT# 10:14 → ER 10:16
DX: N39.0 Urinary tract infection, site not specified (principal); M47.9 Spondylosis, unspecified; Z87.59 Personal history of other complications of pregnancy, childbirth and the puerperium; Z98.890 Other specified postprocedural states; Z97.5 Presence of (intrauterine) contraceptive device; Z87.19 Personal history of other diseases of the digestive system; Z88.0 Allergy status to penicillin; Z88.2 Allergy status to sulfonamides; Z88.1 Allergy status to other antibiotic agents
CPT/HCPCS: 36415; 80048; 81000; 84703; 85025; 86141; 87088; 87186; 99283

== ENCOUNTER 2018-04-01 15:51 | Emergency (ER) | payer BC ==
[~2018-04-01] VITALS: Ht 172.7 cm; Wt 98.4 kg
[~2018-04-01 15:51] MED LIST changes: +NITR100C PO; +ONDA4TAB11 PO; +PHEN-639 PO; -SPIR25TA3; +SPIR25TA5; -SPIR50TA2; +SPIR50TA4
--- OUTSIDE RECORDS SUMMARY | 2018-04-01 15:58 | XMS REPORT | Continuity of Care Document ---
Author Author [facility] Organization [facility] Address Unknown Phone Unavailable Allergies Active Description Code Type Severity Reaction Onset Reported/Identified Relationship to Patient Clinical Status Yes Penicillins [id number] Drug Allergy Mild N/A 05/29/2016 Yes sulfamethoxazole [id number] Drug Allergy Unknown N/A 05/29/2016 Yes trimethoprim [id number] Drug Allergy Unknown N/A 05/29/2016 Medications There is no data. Problems Date Dx Coded Attending Type Code Diagnosis Diagnosed By 09/04/2012 Ot 786.50 CHEST PAIN NOS 09/04/2012 Ot 786.59 CHEST PAIN NEC 09/04/2012 Ot 790.99 BLOOD EXAM - OT NONSPECIFIC FINDINGS 11/01/2012 Ot 789.00 ABDOMINAL PAIN, UNSPECIFIED SITE 05/07/2013 GERBER LAWSON [employer] Ot 892.0 OPEN WOUND OF FOOT 05/07/2013 GERBER LAWSON [employer] Ot E000.8 OTHER EXTERNAL CAUSE STATUS 05/07/2013 GERBER LAWSON [employer] Ot E849.0 ACCIDENT IN HOME 05/07/2013 GERBER LAWSON [employer] Ot E920.4 ACCID-OTHER HAND TOOLS 05/07/2013 GERBER LAWSON [employer] MA[employer] Ot V06.1 PHEHBAOQEE-[id number], COMBINED [ 03/11/2014 LONNIE LUTZ DO Ot 723.4 BRACHIAL NEURITIS NOS 03/11/2014 LONNIE ULTZ DO Ot 786.50 CHEST PAIN NOS 06/10/2014 CATA JOHNSTON, MARISEL R Ot 272.4 06/20/2014 YANIV JOHNSTON, GARRETT Spicer Ot 722.0 CERVICAL DISC DISPLACMNT 06/20/2014 YANIV JOHNSTON, GARRETT Spicer Ot 780.4 DIZZINESS AND GIDDINESS 06/20/2014 YANIV JOHNSTON, GARRETT Spicer Ot 786.50 CHEST PAIN NOS 06/20/2014 YANIV JOHNSTON, GARRETT Spicer Ot 786.59 CHEST PAIN NEC 06/20/2014 CATA JOHNSTON, MARISEL R Ot 244.9 06/20/2014 CATA JOHNSTON, MARISEL R Ot 724.5 06/20/2014 CATA JOHNSTON, MARISEL R Ot 722.10 06/20/2014 CATA JOHNSTON, MARISEL R Ot 272.4 06/20/2014 CATA JOHNSTON, MARISEL R Ot 244.9 06/20/2014 CATA JOHNSTON, MARISEL R Ot 724.5 06/20/2014 CATA JOHNSTON, MARISEL R Ot 722.10 06/20/2014 CATA JOHNSTON, MARISEL R Ot 272.4 06/21/2014 CATA JOHNSTON, MARISEL R Ot 244.9 06/21/2014 CATA JOHNSTON, MARISEL R Ot 724.5 06/21/2014 CATA JOHNSTON, MARISEL R Ot 722.10 06/21/2014 CATA JOHNSTON, MARISEL R Ot 272.4 07/30/2014 Ot 723.1 08/17/2014 GERI PINEDA DO Ot 620.2 08/17/2014 CATA JOHNSTON, MARISEL R Ot 722.10 09/12/2014 Ot 620.2 09/12/2014 Ot 791.9 02/06/2015 Ot 620.2 02/06/2015 Ot 791.9 06/04/2015 CATA JOHNSTON, MARISEL R Ot M54.12 06/28/2015 Ot 723.1 06/28/2015 CATA JOHNSTON, MARISEL R Ot 719.41 06/28/2015 CATA JOHNSTON, MARISEL R Ot 719.41 06/28/2015 CATA JOHNSTON, MARISEL R Ot 722.4 06/28/2015 GERI PINEDA DO Ot 625.9 06/28/2015 CATA JOHNSTON, MARISEL R Ot 729.5 06/28/2015 CATA JOHNSTON, MARISEL R Ot 782.0 07/03/2015 CATA JOHNSTON, MARISEL R Ot M54.12 07/23/2015 CATA JOHNSTON, MARISEL R Ot M54.12 RADICULOPATHY, CERVICAL REGION 07/25/2015 CATA JOHNSTON, MARISEL R Ot M54.12 08/18/2015 CATA JOHNSTON, MARISEL R Ot 244.9 08/18/2015 CATA JOHNSTON, MARISEL R Ot 724.5 08/18/2015 CATA JOHNSTON, MARISEL R Ot 722.10 08/18/2015 CATA JOHNSTON, MARISEL R Ot 272.4 08/18/2015 Ot 620.2 08/18/2015 Ot 791.9 08/18/2015 CATA JOHNSTON, MARISEL R Ot M54.12 08/20/2015 CATA JOHNSTON, MARISEL R Ot M54.12 08/28/2015 CATA JOHNSTON, MARISEL R Ot M54.12 09/04/2015 CATA JOHNSTON, MARISEL R Ot M54.12 09/24/2015 CATA JOHNSTON, MARISEL R Ot M54.12 RADICULOPATHY, CERVICAL REGION 11/25/2015 CATA JOHNSTON, MARISEL R Ot 244.9 HYPOTHYROIDISM NOS 11/25/2015 CATA JOHNSTON, MARISEL R Ot 724.5 BACKACHE NOS 11/25/2015 CATA JOHNSTON, MARISEL R Ot 722.10 LUMBAR DISC DISPLACEMENT 11/25/2015 CATA JOHNSTON, MARISEL R Ot 272.4 HYPERLIPIDEMIA NEC/NOS 11/25/2015 Ot 620.2 OVARIAN CYST NEC/NOS 11/25/2015 Ot 791.9 ABN URINE FINDINGS NEC 11/26/2015 CATA JOHNSTON, MARISEL R Ot R06.00 DYSPNEA, UNSPECIFIED 11/26/2015 CATA JOHNSTON, MARISEL R Ot R07.89 OTHER CHEST PAIN 12/16/2015 CATA JOHNSTON, MARISEL R Ot R06.00 DYSPNEA, UNSPECIFIED 12/16/2015 CATA JOHNSTON, MARISEL R Ot R07.89 OTHER CHEST PAIN 12/30/2015 ODILON IVY MDYD R Ot R06.00 DYSPNEA, UNSPECIFIED 12/30/2015 CATA JOHNSTON, MARISEL R Ot R07.89 OTHER CHEST PAIN 01/22/2016 CATA JOHNSTON, MARISEL R Ot R06.00 DYSPNEA, UNSPECIFIED 01/22/2016 CATA JOHNSTON, MARISEL R Ot R07.89 OTHER CHEST PAIN 03/09/2016 CATA JOHNSTON, MARISEL R Ot 719.41 JOINT PAIN-SHLDER 03/09/2016 MARISEL IVY MD R Ot 719.41 JOINT PAIN-SHLDER 03/09/2016 MARISEL IVY MD Ot 722.4 CERVICAL DISC DEGEN 03/09/2016 FENTYLER DOGERI S Ot 625.9 FEM GENITAL SYMPTOMS NOS 03/09/2016 MARISEL IVY MD Ot 729.5 PAIN IN LIMB 03/09/2016 MARISEL IVY MD Ot 782.0 SKIN SENSATION DISTURB 03/17/2016 Ot 723.1 CERVICALGIA 05/29/2016 GARRETT PURVIS MD Ot R22.0 LOCALIZED SWELLING, MASS AND LUMP, HEAD 05/29/2016 GARRETT PURVIS MD Ot R51 HEADACHE 05/29/2016 GARRETT PURVIS MD Ot T78.40XA ALLERGY, UNSPECIFIED, INITIAL ENCOUNTER 06/02/2016 MARISEL IVY MD Ot 244.9 HYPOTHYROIDISM NOS 06/02/2016 MARISEL IVY MD Ot 724.5 BACKACHE NOS 06/02/2016 MARISEL IVY MD Ot 722.10 LUMBAR DISC DISPLACEMENT 06/02/2016 MARISEL IVY MD Ot 272.4 HYPERLIPIDEMIA NEC/NOS 06/02/2016 Ot 620.2 OVARIAN CYST NEC/NOS 06/02/2016 Ot 791.9 ABN URINE FINDINGS NEC 06/02/2016 MARISEL IVY MD Ot R06.00 DYSPNEA, UNSPECIFIED 06/02/2016 MARISEL IVY MD R Ot R07.89 OTHER CHEST PAIN 06/10/2016 GARRETT PURVIS MD Ot R22.0 LOCALIZED SWELLING, MASS AND LUMP, HEAD 06/10/2016 GARRETT PURVIS MD Ot R51 HEADACHE 06/10/2016 GARRETT PURVIS MD Ot T78.40XA ALLERGY, UNSPECIFIED, INITIAL ENCOUNTER 08/03/2016 LONNIE LUTZ DO Ot K59.00 CONSTIPATION, UNSPECIFIED 08/03/2016 LONNIE LUTZ DO Ot R10.12 LEFT UPPER QUADRANT PAIN 08/03/2016 LONNIE LUTZ DO Ot R10.13 EPIGASTRIC PAIN 08/03/2016 LONNIE LUTZ DO Ot R11.0 NAUSEA 08/05/2016 LONNIE LUTZ DO Ot K59.00 CONSTIPATION, UNSPECIFIED 08/05/2016 BOLIVAR , LONNIE K Ot R10.12 LEFT UPPER QUADRANT PAIN 08/05/2016 BOLIVAR , LONNIE K Ot R10.13 EPIGASTRIC PAIN 08/05/2016 LONNIE LUTZ DO Ot R11.0 NAUSEA 10/31/2016 MICHAEL MCCLURE MD Ot S61.012A LACERATION W/O FB OF LEFT THUMB W/O YESSENIA 10/31/2016 MICHAEL MCCLURE MD Ot W45.8XXA OTH FOREIGN BODY OR OBJECT ENTERING THRO 10/31/2016 MICHAEL MCCLURE MD Ot Y99.8 OTHER EXTERNAL CAUSE STATUS 01/20/2017 MARISEL IVY MD R Ot 244.9 HYPOTHYROIDISM NOS 01/20/2017 MARISEL IVY MD R Ot 724.5 BACKACHE NOS 01/20/2017 MARISEL IVY MD R Ot 722.10 LUMBAR DISC DISPLACEMENT 01/20/2017 MARISEL IVY MD Ot 272.4 HYPERLIPIDEMIA NEC/NOS 01/20/2017 Ot 620.2 OVARIAN CYST NEC/NOS 01/20/2017 Ot 791.9 ABN URINE FINDINGS NEC 01/20/2017 MARISEL IVY MD R Ot R06.00 DYSPNEA, UNSPECIFIED 01/20/2017 MARISEL IVY MD Ot R07.89 OTHER CHEST PAIN 11/19/2017 MARISEL IVY MD R Ot 244.9 HYPOTHYROIDISM NOS 11/19/2017 MARISEL IVY MD R Ot 724.5 BACKACHE NOS 11/19/2017 MARISEL IVY MD R Ot 722.10 LUMBAR DISC DISPLACEMENT 11/19/2017 MARISEL IVY MD R Ot 272.4 HYPERLIPIDEMIA NEC/NOS 11/19/2017 Ot 620.2 OVARIAN CYST NEC/NOS 11/19/2017 Ot 791.9 ABN URINE FINDINGS NEC 11/19/2017 MARISEL IVY MD R Ot R06.00 DYSPNEA, UNSPECIFIED 11/19/2017 MARISEL IVY MD R Ot R07.89 OTHER CHEST PAIN 11/19/2017 MICHAEL MCCLURE MD Ot M47.9 SPONDYLOSIS, UNSPECIFIED 11/19/2017 MICHAEL MCCLURE MD Ot N39.0 URINARY TRACT INFECTION, SITE NOT SPECIF 11/19/2017 MICHAEL MCCLURE MD, Ot R31.9 HEMATURIA, UNSPECIFIED 11/19/2017 MICHAEL MCCLURE MD Ot Z87.19 PERSONAL HISTORY OF OTHER DISEASES OF 11/19/2017 MICHAEL MCCLURE MD Ot Z87.59 PERSONAL HISTORY OF COMP OF PREG, CHLDBR 11/19/2017 MICHAEL MCCLURE MD Ot Z88.0 ALLERGY STATUS TO PENICILLIN 11/19/2017 MICHAEL MCCLURE MD, Ot Z88.1 ALLERGY STATUS TO OTHER ANTIBIOTIC AGENT 11/19/2017 MICHAEL MCCLURE MD Ot Z88.2 ALLERGY STATUS TO SULFONAMIDES STATUS 11/19/2017 MICHAEL MCCLURE MD Ot Z97.5 PRESENCE OF (INTRAUTERINE) CONTRACEPTIVE 11/19/2017 MICHAEL MCCLURE MD Ot Z98.890 OTHER SPECIFIED POSTPROCEDURAL STATES 11/21/2017 MICHAEL MCCLURE MD Ot M47.9 SPONDYLOSIS, UNSPECIFIED 11/21/2017 MICHAEL MCCLURE MD Ot N39.0 URINARY TRACT INFECTION, SITE NOT SPECIF 11/21/2017 MICHAEL MCCLURE MD Ot R31.9 HEMATURIA, UNSPECIFIED 11/21/2017 MICHAEL MCCLURE MD Ot Z87.19 PERSONAL HISTORY OF OTHER DISEASES OF 11/21/2017 MICHAEL MCCLURE MD Ot Z87.59 PERSONAL HISTORY OF COMP OF PREG, CHLDBR 11/21/2017 MICHAEL MCCLURE MD Ot Z88.0 ALLERGY STATUS TO PENICILLIN 11/21/2017 MICHAEL MCCLURE MD Ot Z88.1 ALLERGY STATUS TO OTHER ANTIBIOTIC AGENT 11/21/2017 MICHAEL MCCLURE MD Ot Z88.2 ALLERGY STATUS TO SULFONAMIDES STATUS 11/21/2017 MICHAEL MCCLURE MD Ot Z97.5 PRESENCE OF (INTRAUTERINE) CONTRACEPTIVE 11/21/2017 MICHAEL MCCLURE MD Ot Z98.890 OTHER SPECIFIED POSTPROCEDURAL STATES Procedures There is no data. Results Test Result Range Complete blood count (CBC) with automated white blood cell (WBC) differential - 05/29/16 18:36 Blood leukocytes automated count (number/volume) 10.5 10*3/uL 4.3-11.0 Blood erythrocytes automated count (number/volume) 4.95 10*6/uL 4.35-5.85 Venous blood hemoglobin measurement (mass/volume) 15.0 g/dL 11.5-16.0 Blood hematocrit (volume fraction) 41 % 35-52 Automated erythrocyte mean corpuscular volume 83 [foz_us] 80-99 Automated erythrocyte mean corpuscular hemoglobin (mass per erythrocyte) 30 pg 25-34 Automated erythrocyte mean corpuscular hemoglobin concentration measurement ( mass/volume) 36 g/dL 32-36 Automated erythrocyte distribution width ratio 11.6 % 10.0-14.5 Automated blood platelet count (count/volume) 283 10*3/uL 130-400 Automated blood platelet mean volume measurement 9.3 [foz_us] 7.4-10.4 Automated blood neutrophils/100 leukocytes 54 % 42-75 Automated blood lymphocytes/100 leukocytes 38 % 12-44 Blood monocytes/100 leukocytes 8 % 0-12 Automated blood eosinophils/100 leukocytes 1 % 0-10 Automated blood basophils/100 leukocytes 0 % 0-10 Blood neutrophils automated count (number/volume) 5.6 10*3 1.8-7.8 Blood lymphocytes automated count (number/volume) 3.9 10*3 1.0-4.0 Blood monocytes automated count (number/volume) 0.8 10*3 0.0-1.0 Automated eosinophil count 0.1 10*3/uL 0.0-0.3 Automated blood basophil count (count/volume) 0.0 10*3/uL 0.0-0.1 Comprehensive metabolic panel - 05/29/16 18:36 Serum or plasma sodium measurement (moles/volume) 139 mmol/L 135-145 Serum or plasma potassium measurement (moles/volume) 3.8 mmol/L 3.6-5.0 Serum or plasma chloride measurement (moles/volume) 104 mmol/L 98-107 Carbon dioxide 25 mmol/L 21-32 Serum or plasma anion gap determination (moles/volume) 10 mmol/L 5-14 Serum or plasma urea nitrogen measurement (mass/volume) 8 mg/dL 7-18 Serum or plasma creatinine measurement (mass/volume) 0.76 mg/dL 0.60-1.30 Serum or plasma urea nitrogen/creatinine mass ratio 11 NRG Serum or plasma creatinine measurement with calculation of estimated glomerular filtration rate > NRG Serum or plasma glucose measurement (mass/volume) 91 mg/dL 70-105 Serum or plasma calcium measurement (mass/volume) 9.6 mg/dL 8.5-10.1 Serum or plasma total bilirubin measurement (mass/volume) 0.4 mg/dL 0.1-1.0 Serum or plasma alkaline phosphatase measurement (enzymatic activity/volume) 84 U/L 40-136 Serum or plasma aspartate aminotransferase measurement (enzymatic activity/ volume) 19 U/L 5-34 Serum or plasma alanine aminotransferase measurement (enzymatic activity/volume ) 21 U/L 0-55 Serum or plasma protein measurement (mass/volume) 6.8 g/dL 6.4-8.2 Serum or plasma albumin measurement (mass/volume) 4.1 g/dL 3.2-4.5 Complete urinalysis with reflex to culture - 08/03/16 19:15 Urine color determination YELLOW NRG Urine clarity determination CLEAR NRG Urine pH measurement by test strip 6 5-9 Specific gravity of urine by test strip 1.010 1.016- 1.022 Urine protein assay by test strip, semi-quantitative NEGATIVE NEGATIVE Urine glucose detection by automated test strip NEGATIVE NEGATIVE Erythrocytes detection in urine sediment by light microscopy 2+ NEGATIVE Urine ketones detection by automated test strip NEGATIVE NEGATIVE Urine nitrite detection by test strip NEGATIVE NEGATIVE Urine total bilirubin detection by test strip NEGATIVE NEGATIVE Urine urobilinogen measurement by automated test strip (mass/volume) NORMAL NORMAL Urine leukocyte esterase detection by dipstick NEGATIVE NEGATIVE Automated urine sediment erythrocyte count by microscopy (number/high power field) RARE NRG Automated urine sediment leukocyte count by microscopy (number/high power field ) RARE NRG Bacteria detection in urine sediment by light microscopy TRACE NRG Squamous epithelial cells detection in urine sediment by light microscopy 2-5 NRG Crystals detection in urine sediment by light microscopy NONE NRG Casts detection in urine sediment by light microscopy NONE NRG Mucus detection in urine sediment by light microscopy NEGATIVE NRG Complete urinalysis with reflex to culture NO NRG Complete blood count (CBC) with automated white blood cell (WBC) differential - 08/03/16 20:23 Blood leukocytes automated count (number/volume) 13.3 10*3/uL 4.3-11.0 Blood erythrocytes automated count (number/volume) 5.08 10*6/uL 4.35-5.85 Venous blood hemoglobin measurement (mass/volume) 15.4 g/dL 11.5-16.0 Blood hematocrit (volume fraction) 43 % 35-52 Automated erythrocyte mean corpuscular volume 84 [foz_us] 80-99 Automated erythrocyte mean corpuscular hemoglobin (mass per erythrocyte) 30 pg 25-34 Automated erythrocyte mean corpuscular hemoglobin concentration measurement ( mass/volume) 36 g/dL 32-36 Automated erythrocyte distribution width ratio 11.8 % 10.0-14.5 Automated blood platelet count (count/volume) 327 10*3/uL 130-400 Automated blood platelet mean volume measurement 8.9 [foz_us] 7.4-10.4 Automated blood neutrophils/100 leukocytes 59 % 42-75 Automated blood lymphocytes/100 leukocytes 34 % 12-44 Blood monocytes/100 leukocytes 6 % 0-12 Automated blood eosinophils/100 leukocytes 1 % 0-10 Automated blood basophils/100 leukocytes 0 % 0-10 Blood neutrophils automated count (number/volume) 7.8 10*3 1.8-7.8 Blood lymphocytes automated count (number/volume) 4.5 10*3 1.0-4.0 Blood monocytes automated count (number/volume) 0.8 10*3 0.0-1.0 Automated eosinophil count 0.2 10*3/uL 0.0-0.3 Automated blood basophil count (count/volume) 0.0 10*3/uL 0.0-0.1 Comprehensive metabolic panel - 08/03/16 20:23 Serum or plasma sodium measurement (moles/volume) 139 mmol/L 135-145 Serum or plasma potassium measurement (moles/volume) 4.1 mmol/L 3.6-5.0 Serum or plasma chloride measurement (moles/volume) 106 mmol/L 98-107 Carbon dioxide 23 mmol/L 21-32 Serum or plasma anion gap determination (moles/volume) 10 mmol/L 5-14 Serum or plasma urea nitrogen measurement (mass/volume) 8 mg/dL 7-18 Serum or plasma creatinine measurement (mass/volume) 0.76 mg/dL 0.60-1.30 Serum or plasma urea nitrogen/creatinine mass ratio 11 NRG Serum or plasma creatinine measurement with calculation of estimated glomerular filtration rate > NRG Serum or plasma glucose measurement (mass/volume) 90 mg/dL 70-105 Serum or plasma calcium measurement (mass/volume) 9.6 mg/dL 8.5-10.1 Serum or plasma total bilirubin measurement (mass/volume) 0.4 mg/dL 0.1-1.0 Serum or plasma alkaline phosphatase measurement (enzymatic activity/volume) 91 U/L 40-136 Serum or plasma aspartate aminotransferase measurement (enzymatic activity/ volume) 15 U/L 5-34 Serum or plasma alanine aminotransferase measurement (enzymatic activity/volume ) 21 U/L 0-55 Serum or plasma protein measurement (mass/volume) 7.4 g/dL 6.4-8.2 Serum or plasma albumin measurement (mass/volume) 4.3 g/dL 3.2-4.5 Serum or plasma amylase measurement (enzymatic activity/volume) - 08/03/16 20: 23 Serum or plasma amylase measurement (enzymatic activity/volume) 49 U /L 25-125 Lipase - 08/03/16 20:23 Lipase 44 U/L 8-78 Complete urinalysis with reflex to culture - 11/19/17 10:30 Urine color determination RED NRG Urine clarity determination VERY CLOUDY NRG Urine pH measurement by test strip 6.5 5-9 Specific gravity of urine by test strip 1.010 1.016- 1.022 Urine protein assay by test strip, semi-quantitative 3+ NEGATIVE Urine glucose detection by automated test strip NEGATIVE NEGATIVE Erythrocytes detection in urine sediment by light microscopy 5+ NEGATIVE Urine ketones detection by automated test strip NEGATIVE NEGATIVE Urine nitrite detection by test strip POSITIVE NEGATIVE Urine total bilirubin detection by test strip NEGATIVE NEGATIVE Urine urobilinogen measurement by automated test strip (mass/volume) NORMAL NORMAL Urine leukocyte esterase detection by dipstick 3+ NEGATIVE Automated urine sediment erythrocyte count by microscopy (number/high power field) [HPF] NRG Automated urine sediment leukocyte count by microscopy (number/high power field ) [HPF] NRG Bacteria detection in urine sediment by light microscopy FEW NRG Squamous epithelial cells detection in urine sediment by light microscopy RARE NRG Crystals detection in urine sediment by light microscopy NONE NRG Casts detection in urine sediment by light microscopy NONE NRG Mucus detection in urine sediment by light microscopy NEGATIVE NRG Complete urinalysis with reflex to culture YES NRG Bacterial urine culture - 11/19/17 10:30 Bacterial urine culture [id number] NRG COLONY COUNT >100,000/ML NRG FTX;REPORTABLE SENSITIVITY REPORTED AT 1623, 5-6-18 NRG Bacterial susceptibility panel - 11/19/17 10:30 Gentamicin susceptibility test by minimum inhibitory concentration < = NRG Trimethoprim/sulfamethoxazole susceptibility test by minimum inhibitoryconcentration S NRG Ampicillin susceptibility test by minimum inhibitory concentration < = NRG Tobramycin susceptibility test by minimum inhibitory concentration < = NRG Cefazolin susceptibility test by minimum inhibitory concentration < = NRG Ceftriaxone susceptibility test by minimum inhibitory concentration <= NRG Ampicillin/sulbactam susceptibility test by minimum inhibitory concentration <= NRG Piperacillin/tazobactam susceptibility test by minimum inhibitory concentration S NRG Ciprofloxacin susceptibility test by minimum inhibitory concentration <= NRG Meropenem susceptibility test by minimum inhibitory concentration < = NRG Nitrofurantoin susceptibility test by minimum inhibitory concentration <= NRG Aztreonam susceptibility test by minimum inhibitory concentration < = NRG Extended spectrum beta lactamase (ESBL) producing bacteria susceptibility test by minimum inhibitory concentration - NRG Complete blood count (CBC) with automated white blood cell (WBC) differential - 11/19/17 12:00 Blood leukocytes automated count (number/volume) 10.7 10*3/uL 4.3-11.0 Blood erythrocytes automated count (number/volume) 4.91 10*6/uL 4.35-5.85 Venous blood hemoglobin measurement (mass/volume) 14.9 g/dL 11.5-16.0 Blood hematocrit (volume fraction) 41 % 35-52 Automated erythrocyte mean corpuscular volume 84 [foz_us] 80-99 Automated erythrocyte mean corpuscular hemoglobin (mass per erythrocyte) 30 pg 25-34 Automated erythrocyte mean corpuscular hemoglobin concentration measurement ( mass/volume) 36 g/dL 32-36 Automated erythrocyte distribution width ratio 11.4 % 10.0-14.5 Automated blood platelet count (count/volume) 299 10*3/uL 130-400 Automated blood platelet mean volume measurement 9.3 [foz_us] 7.4-10.4 Automated blood neutrophils/100 leukocytes 68 % 42-75 Automated blood lymphocytes/100 leukocytes 25 % 12-44 Blood monocytes/100 leukocytes 5 % 0-12 Automated blood eosinophils/100 leukocytes 1 % 0-10 Automated blood basophils/100 leukocytes 0 % 0-10 Blood neutrophils automated count (number/volume) 7.3 10*3 1.8-7.8 Blood lymphocytes automated count (number/volume) 2.7 10*3 1.0-4.0 Blood monocytes automated count (number/volume) 0.5 10*3 0.0-1.0 Automated eosinophil count 0.1 10*3/uL 0.0-0.3 Automated blood basophil count (count/volume) 0.0 10*3/uL 0.0-0.1 Whole blood basic metabolic panel - 11/19/17 12:00 Serum or plasma sodium measurement (moles/volume) 138 mmol/L 135-145 Serum or plasma potassium measurement (moles/volume) 4.1 mmol/L 3.6-5.0 Serum or plasma chloride measurement (moles/volume) 104 mmol/L 98-107 Carbon dioxide 28 mmol/L 21-32 Serum or plasma anion gap determination (moles/volume) 6 mmol/L 5-14 Serum or plasma urea nitrogen measurement (mass/volume) 9 mg/dL 7-18 Serum or plasma creatinine measurement (mass/volume) 0.74 mg/dL 0.60-1.30 Serum or plasma urea nitrogen/creatinine mass ratio 12 NRG Serum or plasma creatinine measurement with calculation of estimated glomerular filtration rate > NRG Serum or plasma glucose measurement (mass/volume) 84 mg/dL 70-105 Serum or plasma calcium measurement (mass/volume) 9.4 mg/dL 8.5-10.1 Serum or plasma C reactive protein measurement (mass/volume) - 11/19/17 12:00 Serum or plasma C reactive protein measurement (mass/volume) 0.14 mg /dL 0.00-0.50 Encounters ACCT No. Visit Date/Time Discharge Status Pt. Type Provider Facility Loc./Unit Complaint [id number] 11/19/2017 10:16:00 11/19/2017 13:51:00 DIS Emergency KAMI JOHNSTON, MICHAEL [facility] ER URINATING BLOOD [id number] 11/15/2017 07:28:00 11/15/2017 23:59:59 CLS Preadmit ERROL ROMANOP [facility] RAD BILAT LOWER PELVIC PAIN [id number] 08/09/2017 15:22:00 08/09/2017 23:59:59 CLS Preadmit ERROL ROMANO APPRAISER [facility] RAD LLQ PAIN [id number] 03/14/2017 10:02:00 03/14/2017 23:59:59 CLS Preadmit LUCERO JOHNSTON, CARMEN [place] [facility] RAD Z34.80 NORMAL [id number] 11/22/2016 10:15:00 11/22/2016 23:59:59 CLS Preadmit PETRONA JOHNSTON DAYSI Haresh [facility] RAD H/O UTI [id number] 10/30/2016 22:59:00 10/31/2016 00:20:00 DIS Emergency MICHAEL MCCLURE MD [facility] ER LEFT THUMB LACERATION [id number] 08/03/2016 18:00:00 08/03/2016 22:43:00 DIS Emergency LONNIE LUTZ DO [facility] ER ABD PAIN,NAUSEA [id number] 05/29/2016 18:21:00 05/29/2016 19:56:00 DIS Emergency GARRETT PURVIS MD [facility] ER POSS ALLERGIC REACTION , SHAKING AND FACE SWELLING [id number] 11/25/2015 11:01:00 11/25/2015 23:59:59 CLS Outpatient MARISEL IVY MD [facility] RAD DYSPNEA,TIGHTNESS [id number] 08/07/2015 09:29:00 09/24/2015 10:21:00 DIS Outpatient MARISEL IVY MD [facility] REHAB BACK PAIN WITH RADICULOPATHY [id number] 07/22/2015 08:30:00 07/23/2015 00:01:00 DIS Outpatient MARISEL IVY MD [facility] REHAB BACK PAIN WITH RADICULOPATHY [id number] 06/20/2014 10:39:00 06/20/2014 13:28:00 DIS Emergency GARRETT PURVIS MD [facility] ER CHEST PAIN [id number] 06/04/2014 09:35:00 06/04/2014 23:59:59 CLS Outpatient MARISEL IVY MD [facility] LAB HLP [id number] 03/11/2014 15:49:00 03/11/2014 17:59:00 DIS Emergency LONNIE LUTZ DO [facility] ER ARM AND CHEST PAIN [id number] 01/17/2014 12:52:00 01/17/2014 23:59:59 CLS Outpatient MARISEL IVY MD [facility] RAD PAIN UPPER L SPINE W/ BUMP [id number] 01/14/2014 14:19:00 01/14/2014 23:59:59 CLS Outpatient MARISEL IVY MD [facility] RAD PAIN UPPER L SPINE W/ BUMP [id number] 12/04/2013 09:49:00 12/04/2013 23:59:59 CLS Outpatient MARISEL IVY MD [facility] LAB HYPOTHYROIDISM [id number] 08/13/2013 10:47:00 08/13/2013 23:59:59 CLS Outpatient GERI PINEDA DO [facility] RAD [id number] 06/06/2013 14:43:00 06/06/2013 23:59:59 CLS Outpatient MARISEL IVY MD [facility] RAD NUMBNESS RT ARM,PAIN RT SHOULDER [id number] 06/06/2013 11:08:00 06/06/2013 23:59:59 CLS Outpatient GERI PINEDA DO [facility] RAD PELVIC PAIN [id number] 06/04/2013 15:12:00 06/04/2013 23:59:59 CLS Outpatient MARISEL IVY MD [facility] RAD PAIN AND NUMBNESS RUE [id number] 05/24/2013 11:12:00 05/24/2013 23:59:59 CLS Outpatient MARISEL IVY MD [facility] RAD BILATERAL SHOULDER PAIN, [id number] 05/07/2013 19:36:00 05/07/2013 20:26:00 DIS Emergency GERBER LAWSON APRN [facility] ER POSS FOREIGN OBJECT IN L FOOT [id number] 09/05/2014 15:24:00 Document Registration [id number] 11/01/2012 03:01:00 Document Registration [id number] 09/03/2012 23:09:00 Document Registration [id number] 09/01/2012 08:07:00 Document Registration
[2018-04-01 16:56] LABS: BASOPHILS % (AUTO) 0 % (0-10); EOSINOPHILS # (AUTO) 0.1 10^3/uL (0.0-0.3); EOSINOPHILS % (AUTO) 1 % (0-10); HEMATOCRIT 40 % (35-52); LYMPHOCYTES # (AUTO) 2.4 X 10^3 (1.0-4.0); LYMPHOCYTES % (AUTO) 17 % (12-44); MEAN CORPUSCULAR HEMOGLOBIN 30 PG (25-34); MEAN CORPUSCULAR HGB CONC 35 G/DL (32-36); MEAN CORPUSCULAR VOLUME 86 FL (80-99); MONOCYTES # (AUTO) 0.8 X 10^3 (0.0-1.0); MONOCYTES % (AUTO) 5 % (0-12); NEUTROPHILS # (AUTO) 10.9 X 10^3 (1.8-7.8); NEUTROPHILS % (AUTO) 77 % (42-75); PLATELET COUNT 365 10^3/uL (130-400); RED CELL DISTRIBUTION WIDTH 12.1 % (10.0-14.5); WHITE BLOOD COUNT 14.2 10^3/uL (4.3-11.0)
--- NOTE | 2018-04-01 17:04 | ED Cardiac General ---
History of Present Illness General Chief Complaint: Chest Pain Stated Complaint: CHEST PAIN/SOB Nursing Triage Note: PT PRESENTS TO ER WITH COMPLAINT OF CHEST TIGHTNESS, LEG SWELLING, AND HIGH HEART RATE. PT STATES HER WATCH ALERTED HER TO HER HEART RATE BEING IN THE 150S. PT STATES SHE HAS HAD EPISODES OF THIS OFF AND ON. ALSO STATES SHE HAS BEEN HAVING LEG SWELLING, AND WAS STARTED ON LASIX. Source: patient Exam Limitations: no limitations History of Present Illness Date Seen by Provider: Apr 01, 2018 Time Seen by Provider: 17:01 Initial Comments To ER with reports of chest tightness, intermittent leg swelling, high heart rate. She states that she was formerly on phentermine and attributed these symptoms which she's had for quite some time to the phentermine. However she stopped the phentermine about 2 months ago and has persistent intermittent palpitations. Today her watch alerted her that her heart rate was as high as 185 at rest. She was symptomatic with dyspnea and palpitations. She states that she does have a family history of heart disease. She is a former smoker but quit in 2013. No unilateral leg swelling. She states that Dr. PINEDA has told her that she has high androgen levels so she is already on Aldactone. Despite the use of Aldactone she still has intermittent leg swelling (not currently). Timing/Duration: intermittent Severity: moderate Prior CP/Workup: no prior chest pain NTG SL MYCOLOGIST: No ASA po MYCOLOGIST: No Allergies and Home Medications Allergies Coded Allergies: Penicillins (Verified Allergy, Mild, 05/29/16) sulfamethoxazole (Unverified Allergy, Unknown, 05/29/16) trimethoprim (Unverified Allergy, Unknown, 05/29/16) Home Medications Nitrofurantoin Macrocrystal 100 Mg Capsule, 100 MG PO BID Prescribed by: MICHAEL MCCLURE on 11/19/17 1130 Ondansetron 4 Mg Tab.rapdis, 4 MG PO Q6H PRN for NAUSEA/VOMITING Prescribed by: MICHAEL MCCLURE on 11/19/17 1134 Phenazopyridine HCl 100 Mg Tablet, 100 MG PO TID PRN for PAIN-MILD TO MODERATE Prescribed by: MICHAEL MCCLURE on 11/19/17 1130 Patient Home Medication List Home Medication List Reviewed: Yes Review of Systems Review of Systems Constitutional: see HPI EENTM: No Symptoms Reported Respiratory: See HPI; Denies Orthopnea; Shortness of Air Cardiovascular: See HPI, Chest Pain, Edema; Denies Irregular Heart Rate, Denies Lightheadedness; Palpitations; Denies Syncope Gastrointestinal: No Symptoms Reported Genitourinary: No Symptoms Reported Musculoskeletal: no symptoms reported Skin: no symptoms reported Psychiatric/Neurological: No Symptoms Reported Endocrine: No Symptoms Reported Past Dlokalh-Hefple-Thmzig Hx Patient Social History Alcohol Use: Denies Use Recreational Drug Use: No Smoking Status: Former Smoker Recent Foreign Travel: No Contact w/Someone Who Travel: No Recent Infectious Disease Expo: No Recent Hopitalizations: No Immunizations Up To Date Tetanus Booster (TDap): Unknown Seasonal Allergies Seasonal Allergies: No Past Medical History Surgeries: Yes Section, Gallbladder, Orthopedic Respiratory: No Cardiac: No Neurological: No Reproductive Disorders: Yes (TAKES SPIRONOLACTONE TO "REGULATE HORMONES" ) Female Reproductive Disorders: Menstrual Problems 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 oz. 98.281440dr; 27.98 BMI Method:Stated General Appearance: No Apparent Distress, WD/WN HEENT: PERRL/EOMI, TMs Normal, Normal ENT Inspection Neck: Full Range of Motion, Normal Inspection Respiratory: No Accessory Muscle Use, No Respiratory Distress Cardiovascular: No Murmur, Normal Peripheral Pulses, Tachycardia (regular narrow complex rate of 113) Gastrointestinal: Normal Bowel Sounds, Soft Extremity: Normal Capillary Refill Neurologic/Psychiatric: Alert, Oriented x3, No Motor/Sensory Deficits Skin: Normal Color, Warm/Dry Progress/Results/Core Measures Results/Orders Lab Results Laboratory Tests Test 04/01/18 16:02 Range/Units White Blood Count 14.2 H 4.3-11.0 10^3/uL Red Blood Count 4.60 4.35-5.85 10^6/uL Hemoglobin 14.0 11.5-16.0 G/DL Hematocrit 40 35-52 % Mean Corpuscular Volume 86 80-99 FL Mean Corpuscular Hemoglobin 30 25-34 PG Mean Corpuscular Hemoglobin Concent 35 32-36 G/DL Red Cell Distribution Width 12.1 10.0-14.5 % Platelet Count 365 130-400 10^3/uL Mean Platelet Volume 9.0 7.4-10.4 FL Neutrophils (%) (Auto) 77 H 42-75 % Lymphocytes (%) (Auto) 17 12-44 % Monocytes (%) (Auto) 5 0-12 % Eosinophils (%) (Auto) 1 0-10 % Basophils (%) (Auto) 0 0-10 % Neutrophils # (Auto) 10.9 H 1.8-7.8 X 10^3 Lymphocytes # (Auto) 2.4 1.0-4.0 X 10^3 Monocytes # (Auto) 0.8 0.0-1.0 X 10^3 Eosinophils # (Auto) 0.1 0.0-0.3 10^3/uL Basophils # (Auto) 0.0 0.0-0.1 10^3/uL D-Dimer 0.27 0.00-0.49 UG/ML Sodium Level 137 135-145 MMOL/L Potassium Level 3.5 L 3.6-5.0 MMOL/L Chloride Level 100 98-107 MMOL/L Carbon Dioxide Level 24 21-32 MMOL/L Anion Gap 13 5-14 MMOL/L Blood Urea Nitrogen 13 7-18 MG/DL Creatinine 0.90 0.60-1.30 MG/DL Estimat Glomerular Filtration Rate > 60 BUN/Creatinine Ratio 14 Glucose Level 119 H 70-105 MG/DL Calcium Level 9.8 8.5-10.1 MG/DL Corrected Calcium 9.5 8.5-10.1 MG/DL Total Bilirubin 0.6 0.1-1.0 MG/DL Aspartate Amino Transf (AST/SGOT) 24 5-34 U/L Alanine Aminotransferase (ALT/SGPT) 26 0-55 U/L Alkaline Phosphatase 101 40-136 U/L B-Type Natriuretic Peptide < 10.0 <100.0 PG/ML Total Protein 7.5 6.4-8.2 GM/DL Albumin 4.4 3.2-4.5 GM/DL Thyroid Stimulating Hormone (TSH) 1.98 0.35-4.94 UIU/ML My Orders Orders - GERBER LAWSON APRN Fibrin Degradation Products (04/01/18 16:51) Cbc With Automated Diff (04/01/18 16:51) Comprehensive Metabolic Panel (04/01/18 16:51) Thyroid Stimulating Hormone (04/01/18 16:51) Drug Screen Stat (Urine) (04/01/18 16:51) Ua Culture If Indicated (04/01/18 16:51) Iv Heplock-Insert (Order) (04/01/18 16:51) Manual Differential (04/01/18 16:02) Ekg Tracing (04/01/18 16:59) Chest Pa/Lat (2 View) (04/01/18 16:59) BNP (04/01/18 16:59) Vital Signs/I&O 04/01/18 15:53 Temp 98.6 Pulse 126 Resp 15 B/P (MAP) 142/89 (106) Pulse Ox 97 O2 Delivery Room Air Blood Pressure Mean: 106 Departure Communication (Admissions) 1831-heart rate 101 sinus Impression Primary Impression: Palpitations Additional Impression: Tachycardia Disposition: 01 HOME, SELF-CARE Condition: Stable Departure-Patient Inst. Decision time for Depature: 18:30 Referrals: LINDEN AZAR MD FACP FAC CCDS Justin CASTILLO MD, BASHAR J MD SEGLIE, FLOYD R MD (PCP/Family) Primary Care Physician Patient Instructions: Palpitations Add. Discharge Instructions: 1. Return to ER for any concerns 2. Follow-up with your doctor next week 3. Call one of the cardiologists listed to make an appointment to be seen. All discharge instructions reviewed with patient and/or family. Voiced understanding. GERBER LAWSON APRN Apr 01, 2018 17:04
[2018-04-01 17:07] LABS: ALANINE AMINOTRANSFERASE 26 U/L (0-55); ALBUMIN 4.4 GM/DL (3.2-4.5); ALKALINE PHOSPHATASE 101 U/L (40-136); BILIRUBIN,TOTAL 0.6 MG/DL (0.1-1.0); BUN/CREATININE RATIO 14; CALCIUM 9.8 MG/DL (8.5-10.1); CARBON DIOXIDE 24 MMOL/L (21-32); CHLORIDE 100 MMOL/L (98-107); GFR ESTIMATED > 60; GLUCOSE 119 MG/DL (70-105); POTASSIUM 3.5 MMOL/L (3.6-5.0); SODIUM 137 MMOL/L (135-145); TOTAL PROTEIN 7.5 GM/DL (6.4-8.2)
--- NOTE | 2018-04-01 17:36 | Diagnostic Imaging Report ---
INDICATION: Elevated heart rate with chest tightness. Comparison made with prior study from 08/03/2016. FINDINGS: The lungs demonstrate no radiographic evidence of focal pulmonary infiltrate or consolidation. There is no effusion. There is no pneumothorax. Heart size and mediastinal contours appear appropriate. Pulmonary vascularity appears normal. IMPRESSION: No radiographic evidence of an acute cardiopulmonary process. Dictated by: Dictated on workstation # [id number]
[2018-04-01 18:30] LABS: EOSINOPHILS % (MANUAL) 1 %; LYMPHOCYTES % (MANUAL) 22 %; MONOCYTES % (MANUAL) 6 %; NEUTROPHILS % (MANUAL) 71 %; RBC MORPH NORMAL
[2018-04-01 18:46] VITALS: BP 129/69
[2018-04-01 18:49] LABS: BILIRUBIN,URINE NEGATIVE (NEGATIVE); CLARITY,URINE CLEAR; COLOR,URINE YELLOW; GLUCOSE, URINE (UA) NEGATIVE (NEGATIVE); KETONES,URINE NEGATIVE (NEGATIVE); LEUKOCYTE ESTERASE ,URINE NEGATIVE (NEGATIVE); NITRITE,URINE NEGATIVE (NEGATIVE); PH,URINE 5 (5-9); PROTEIN,URINE NEGATIVE (NEGATIVE); UROBILINOGEN,URINE NORMAL (NORMAL)
[2018-04-01 19:02] LABS: WBC,URINE 0-2 /HPF
[2018-04-01 19:03] LABS: BACTERIA,URINE MODERATE /HPF; SQUAMOUS EPITHELIAL CELL,UR 0-5 /HPF
[2018-04-01 19:08] LABS: AMPHETAMINE SCREEN, URINE NEGATIVE (NEGATIVE); BARBITURATE SCREEN URINE NEGATIVE (NEGATIVE); BENZODIAZEPINES SCREEN URINE POSITIVE (NEGATIVE); CANNABINOID SCREEN, URINE NEGATIVE (NEGATIVE); COCAINE SCREEN URINE NEGATIVE (NEGATIVE); METHADONE STAT NEGATIVE (NEGATIVE); METHAMPHETAMINE SCREEN URINE S NEGATIVE (NEGATIVE); OPIATE SCREEN URINE NEGATIVE (NEGATIVE); OXYCODONE STAT NEGATIVE (NEGATIVE); PROPOXYPHENE STAT NEGATIVE (NEGATIVE); TRICYCLIC ANTIDEPRESSANTS SCRE NEGATIVE (NEGATIVE)
== END 2018-04-01 18:46 | disposition home or self-care (01) ==
LOC: EDUNIT# 15:51 → ER 15:53
DX: R00.0 Tachycardia, unspecified (principal); R00.2 Palpitations; R07.89 Other chest pain; Z82.49 Family history of ischemic heart disease and other diseases of the circulatory system; Z87.891 Personal history of nicotine dependence; Z88.0 Allergy status to penicillin; Z88.2 Allergy status to sulfonamides; Z88.8 Allergy status to other drugs, medicaments and biological substances; Z98.890 Other specified postprocedural states; Z97.5 Presence of (intrauterine) contraceptive device; Z87.448 Personal history of other diseases of urinary system
CPT/HCPCS: 36415; 71046; 80053; 80306; 81000; 83880; 84443; 85007; 85027; 85379; 87088; 93005

== ENCOUNTER → 2018-04-25 | Outpatient (CLI) | payer BC | LOC: CARD 11:28 | PROVIDERS: ATTEND Internal Medicine Interventional Cardiology | DX: R00.2 Palpitations (principal); R06.02 Shortness of breath; M79.89 Other specified soft tissue disorders | CPT/HCPCS: 93225; 93226 ==

== ENCOUNTER → 2018-05-18 | Outpatient (CLI) | payer BC | LOC: CARD 09:35 | PROVIDERS: ATTEND Internal Medicine Interventional Cardiology | DX: M79.89 Other specified soft tissue disorders (principal); R00.2 Palpitations; R06.02 Shortness of breath | CPT/HCPCS: 93306 ==

== ENCOUNTER 2018-06-15 09:51 | Outpatient (RCR) | payer BC | END 2018-08-16 | disposition home or self-care (01) | LOC: CARD 09:51 | PROVIDERS: ATTEND Internal Medicine Interventional Cardiology | DX: R00.2 Palpitations (principal); R06.02 Shortness of breath; M79.89 Other specified soft tissue disorders | CPT/HCPCS: 93270 ==

== ENCOUNTER → 2018-07-27 | Outpatient (CLI) | payer BC ==
[2018-07-27 13:17] LABS: BASOPHILS % (AUTO) 0 % (0-10); EOSINOPHILS # (AUTO) 0.1 10^3/uL (0.0-0.3); EOSINOPHILS % (AUTO) 1 % (0-10); HEMATOCRIT 42 % (35-52); HEMOGLOBIN 14.8 G/DL (11.5-16.0); LYMPHOCYTES # (AUTO) 2.7 X 10^3 (1.0-4.0); LYMPHOCYTES % (AUTO) 25 % (12-44); MEAN CORPUSCULAR HEMOGLOBIN 30 PG (25-34); MEAN CORPUSCULAR HGB CONC 35 G/DL (32-36); MEAN CORPUSCULAR VOLUME 87 FL (80-99); MEAN PLATELET VOLUME 8.9 FL (7.4-10.4); MONOCYTES # (AUTO) 0.6 X 10^3 (0.0-1.0); MONOCYTES % (AUTO) 6 % (0-12); NEUTROPHILS # (AUTO) 7.1 X 10^3 (1.8-7.8); NEUTROPHILS % (AUTO) 68 % (42-75); PLATELET COUNT 316 10^3/uL (130-400); RED BLOOD COUNT 4.88 10^6/uL (4.35-5.85); RED CELL DISTRIBUTION WIDTH 12.6 % (10.0-14.5); WHITE BLOOD COUNT 10.5 10^3/uL (4.3-11.0)
[2018-07-27 13:34] LABS: ALANINE AMINOTRANSFERASE 14 U/L (0-55); ALBUMIN 4.3 GM/DL (3.2-4.5); ALKALINE PHOSPHATASE 96 U/L (40-136); AMYLASE 41 U/L (25-125); BILIRUBIN,TOTAL 0.5 MG/DL (0.1-1.0); BUN/CREATININE RATIO 8; CALCIUM 9.2 MG/DL (8.5-10.1); CARBON DIOXIDE 23 MMOL/L (21-32); CHLORIDE 105 MMOL/L (98-107); CREATININE SERUM 0.72 MG/DL (0.60-1.30); GFR ESTIMATED > 60; GLUCOSE 87 MG/DL (70-105); LIPASE 27 U/L (8-78); SODIUM 139 MMOL/L (135-145); TOTAL PROTEIN 7.5 GM/DL (6.4-8.2)
== END ==
LOC: LAB 13:01
PROVIDERS: ATTEND Nurse Practitioner Family
DX: R10.12 Left upper quadrant pain (principal)
CPT/HCPCS: 36415; 80053; 82150; 83690; 85025

== ENCOUNTER → 2018-08-02 | Outpatient (CLI) | payer BC ==
[~2018-08-02] MED LIST changes: +IOHEXOL 350 MG/ML 100 ML (OMNIPAQUE 350) VIAL IV ONE; +NS 100 ML (IVPB) BAG IV ONE; +RECEIVED CONTRAST (Hold Metformin) IV SCH
--- NOTE | 2018-08-02 11:11 | Diagnostic Imaging Report ---
PROCEDURE: CT abdomen and pelvis with contrast. TECHNIQUE: Multiple contiguous axial images were obtained through the abdomen and pelvis after administration of intravenous contrast. INDICATION: Left upper quadrant pain for one week. COMPARISON: Correlation is made with prior CT from 08/03/2016. FINDINGS: The lung bases are clear. No focal liver mass is identified. The gallbladder is surgically absent. No biliary duct dilatation is seen. The pancreas demonstrates homogeneous enhancement. No mass or pancreatic ductal dilatation is seen. The spleen is unremarkable. No adrenal mass is detected. Kidneys are unremarkable. Aorta is nonaneurysmal. No central retroperitoneal or mesenteric lymphadenopathy is seen. Small and large bowel loops are normal caliber. No obstruction is seen. There is moderate stool in the colon. There is no ascites. Uterus contains an IUD. Bladder is unremarkable. No iliac or inguinal lymphadenopathy is seen. IMPRESSION: Unremarkable CT of the abdomen and pelvis. No acute abnormality is detected. Dictated by: Dictated on workstation # [id number]
== END ==
LOC: RAD 10:26
PROVIDERS: ATTEND Family Medicine
DX: K56.609 Unspecified intestinal obstruction, unspecified as to partial versus complete obstruction (principal); Z90.49 Acquired absence of other specified parts of digestive tract
CPT/HCPCS: 74177

== ENCOUNTER 2018-08-17 09:00 | Outpatient (CLI) | payer BC ==
[~2018-08-17] VITALS: Ht 172.7 cm; Wt 98.4 kg
[~2018-08-17 09:00] MED LIST changes: -IOHEXOL 350 MG/ML 100 ML (OMNIPAQUE 350) VIAL IV ONE; -NS 100 ML (IVPB) BAG IV ONE; -RECEIVED CONTRAST (Hold Metformin) IV SCH
== END 2018-08-17 10:16 | disposition home or self-care (01) ==
LOC: PREOP 09:00
PROVIDERS: ATTEND Surgery
DX: Z01.818 Encounter for other preprocedural examination (principal)

== ENCOUNTER 2018-08-22 07:36 | Day surgery (SDC) | payer BC ==
[~2018-08-22] VITALS: Ht 172.7 cm; Wt 98.4 kg
--- OUTSIDE RECORDS SUMMARY | 2018-08-22 07:42 | XMS REPORT | Continuity of Care Document ---
Author Author [facility] Organization [facility] Address Unknown Phone Unavailable Allergies Active Description Code Type Severity Reaction Onset Reported/Identified Relationship to Patient Clinical Status Yes sulfamethoxazole [id number] Drug Allergy Unknown N/A 05/29/2016 Yes trimethoprim [id number] Drug Allergy Unknown N/A 05/29/2016 Yes Penicillins [id number] Drug Allergy Mild N/A 08/17/2018 Yes sulfamethoxazole [id number] Drug Allergy Mild HIVES 08/17/2018 Yes trimethoprim [id number] Drug Allergy Mild HIVES 08/17/2018 Medications There is no data. Problems Date Dx Coded Attending Type Code Diagnosis Diagnosed By 09/04/2012 Ot 786.50 CHEST PAIN NOS 09/04/2012 Ot 786.59 CHEST PAIN NEC 09/04/2012 Ot 790.99 BLOOD EXAM - OT NONSPECIFIC FINDINGS 11/01/2012 Ot 789.00 ABDOMINAL PAIN, UNSPECIFIED SITE 05/07/2013 GERBER LAWSON HAND SPRAYER Ot 892.0 OPEN WOUND OF FOOT 05/07/2013 GERBER LAWSON HAND SPRAYER Ot E000.8 OTHER EXTERNAL CAUSE STATUS 05/07/2013 GERBER LAWSON HAND SPRAYER Ot E849.0 ACCIDENT IN HOME 05/07/2013 GERBER LAWSON HAND SPRAYER Ot E920.4 ACCID-OTHER HAND TOOLS 05/07/2013 GERBER LAWSON HAND SPRAYER Ot V06.1 [id number], COMBINED [ 03/11/2014 LONNIE LUTZ DO Ot 723.4 BRACHIAL NEURITIS NOS 03/11/2014 LONNIE LUTZ DO Ot 786.50 CHEST PAIN NOS 06/10/2014 CATA JOHNSTON, MARISEL Pereira Ot 272.4 06/20/2014 YANIV JOHNSTON, GARRETT Spicer Ot 722.0 CERVICAL DISC DISPLACMNT 06/20/2014 YANIV JOHNSTON, GARRETT Spicer Ot 780.4 DIZZINESS AND GIDDINESS 06/20/2014 YANIV JOHNSTON, GARRETT Spicer Ot 786.50 CHEST PAIN NOS 06/20/2014 YANIV JOHNSTON, GARRETT T Ot 786.59 CHEST PAIN NEC 06/20/2014 CATA [...] 07/30/2014 Ot 723.1 08/17/2014 GERI PINEDA DO S Ot 620.2 08/17/2014 CATA JOHNSTON, MARISEL R Ot 722.10 09/12/2014 Ot 620.2 09/12/2014 Ot 791.9 02/06/2015 Ot 620.2 02/06/2015 Ot 791.9 06/04/2015 CATA JOHNSTON, MARISEL R Ot M54.12 06/28/2015 Ot 723.1 06/28/2015 CATA JOHNSTON, MARISEL R Ot 719.41 06/28/2015 CATA JOHNSTON, MARISEL R Ot 719.41 06/28/2015 CATA JOHNSTON, MARISEL R Ot 722.4 06/28/2015 GERI PINEDA DO S Ot 625.9 06/28/2015 CATA JOHNSTON, MARISEL R [...] R Ot R07.89 OTHER CHEST PAIN 12/30/2015 CATA JOHNSTON, MARISEL R Ot R06.00 DYSPNEA, UNSPECIFIED 12/30/2015 CATA JOHNSTON, MARISEL R Ot R07.89 OTHER CHEST PAIN 01/22/2016 ODILON IVY MDYD R Ot R06.00 DYSPNEA, UNSPECIFIED 01/22/2016 MARISEL IVY MD R Ot R07.89 OTHER CHEST PAIN 03/09/2016 SEGLIMARISEL Deal MD Ot 719.41 JOINT PAIN-SHLDER 03/09/2016 MARISEL IVY MD Ot 719.41 JOINT PAIN-SHLDER 03/09/2016 MARISEL IVY MD Ot 722.4 CERVICAL DISC DEGEN 03/09/2016 GERI PINEDA DO Ot 625.9 FEM GENITAL SYMPTOMS NOS 03/09/2016 [...] R06.00 DYSPNEA, UNSPECIFIED 06/02/2016 MARISEL IVY MD Ot R07.89 OTHER CHEST PAIN 06/10/2016 GARRETT PURVIS MD Ot R22.0 LOCALIZED SWELLING, MASS AND LUMP, HEAD 06/10/2016 GARRETT PURVIS MD Ot R51 HEADACHE 06/10/2016 GARRETT PURVIS MD Ot T78.40XA ALLERGY, UNSPECIFIED, INITIAL ENCOUNTER 08/03/2016 LONNIE LUTZ DO Ot K59.00 CONSTIPATION, UNSPECIFIED 08/03/2016 LONNIE LUTZ DO Ot R10.12 LEFT UPPER QUADRANT PAIN 08/03/2016 LONNIE LUTZ DO Ot R10.13 EPIGASTRIC PAIN 08/03/2016 BOLIVAR LONNIE HANCOCK Ot R11.0 NAUSEA 08/05/2016 BOLIVAR , LONNIE Ingram Ot K59.00 CONSTIPATION, UNSPECIFIED 08/05/2016 BOLIVAR , LONNIE Ingram Ot R10.12 LEFT UPPER QUADRANT PAIN 08/05/2016 BOLIVAR LONNIE HANCOCK Ot R10.13 EPIGASTRIC PAIN 08/05/2016 BOLIVAR LONNIE HANCOCK Ot R11.0 NAUSEA 10/31/2016 MICHAEL MCCLURE MD Ot S61.012A LACERATION W/O FB OF LEFT THUMB W/O YESSENIA 10/31/2016 MICHAEL MCCLURE MD Ot W45.8XXA OTH FOREIGN BODY OR OBJECT ENTERING THRO 10/31/2016 MICHAEL MCCLURE MD Ot Y99.8 OTHER EXTERNAL CAUSE STATUS 01/20/2017 MARISEL IVY MD Ot 244.9 HYPOTHYROIDISM NOS 01/20/2017 MARISEL IVY MD R Ot 724.5 BACKACHE NOS 01/20/2017 MARISEL IVY MD R Ot 722.10 LUMBAR DISC DISPLACEMENT 01/20/2017 MARISEL IVY MD R Ot 272.4 HYPERLIPIDEMIA NEC/NOS 01/20/2017 Ot 620.2 OVARIAN CYST NEC/NOS 01/20/2017 Ot 791.9 ABN URINE FINDINGS NEC 01/20/2017 MARISEL IVY MD R Ot R06.00 DYSPNEA, UNSPECIFIED 01/20/2017 MARISEL IVY MD Ot R07.89 OTHER CHEST PAIN 11/19/2017 MARISEL IVY MD Ot 244.9 HYPOTHYROIDISM NOS 11/19/2017 MARISEL IVY [...] INFECTION, SITE NOT SPECIF 11/19/2017 MICHAEL MCCLURE MD Ot R31.9 HEMATURIA, UNSPECIFIED 11/19/2017 MICHAEL MCCLURE MD Ot Z87.19 PERSONAL HISTORY OF OTHER DISEASES OF 11/19/2017 MICHAEL MCCLURE MD Ot Z87.59 PERSONAL HISTORY OF COMP OF PREG, CHLDBR 11/19/2017 MICHAEL MCCLURE MD Ot Z88.0 ALLERGY STATUS TO PENICILLIN 11/19/2017 MICHAEL MCCLURE MD Ot Z88.1 ALLERGY STATUS TO OTHER ANTIBIOTIC AGENT 11/19/2017 MICHAEL MCCLURE MD, Ot Z88.2 ALLERGY STATUS TO SULFONAMIDES STATUS 11/19/2017 MICHAEL MCCLURE MD Ot Z97.5 PRESENCE OF (INTRAUTERINE) CONTRACEPTIVE 11/19/2017 MICHAEL MCCLURE MD Ot Z98.890 OTHER SPECIFIED POSTPROCEDURAL STATES 11/21/2017 MICHAEL MCCLURE MD Ot M47.9 SPONDYLOSIS, UNSPECIFIED 11/21/2017 MICHAEL MCCLURE MD Ot N39.0 URINARY TRACT INFECTION, SITE NOT SPECIF 11/21/2017 MICHAEL MCCLURE MD, Ot R31.9 HEMATURIA, UNSPECIFIED 11/21/2017 MICHAEL MCCLURE [...] MD Ot Z98.890 OTHER SPECIFIED POSTPROCEDURAL STATES 04/01/2018 GERBER LAWSON APRN Ot R00.0 TACHYCARDIA, UNSPECIFIED 04/01/2018 GERBER LAWSON APRN Ot R00.2 PALPITATIONS 04/01/2018 GERBER LAWSON HAND SPRAYER Ot R07.89 OTHER CHEST PAIN 04/01/2018 GERBER LAWSON APRN Ot Z82.49 FAMILY HX OF ISCHEM HEART DIS AND OTH DI 04/01/2018 GERBER LAWSON APRN Ot Z87.448 PERSONAL HISTORY OF OTHER DISEASES OF UR 04/01/2018 GERBER LAWSON APRN Ot Z87.891 PERSONAL HISTORY OF NICOTINE DEPENDENCE 04/01/2018 GERBER LAWSNO APRN Ot Z88.0 ALLERGY STATUS TO PENICILLIN 04/01/2018 GERBER LAWSON APRN Ot Z88.2 ALLERGY STATUS TO SULFONAMIDES STATUS 04/01/2018 GERBER LAWSON APRN Ot Z88.8 ALLERGY STATUS TO OTH DRUG/MEDS/BIOL SUB 04/01/2018 GERBER LAWSON APRN Ot Z97.5 PRESENCE OF (INTRAUTERINE) CONTRACEPTIVE 04/01/2018 GERBER LAWSON APRN Ot Z98.890 OTHER SPECIFIED POSTPROCEDURAL STATES 04/04/2018 GERBER LAWSON APRN Ot R00.0 TACHYCARDIA, UNSPECIFIED 04/04/2018 GERBER LAWSON APRN Ot R00.2 PALPITATIONS 04/04/2018 GERBER LAWSON APRN Ot R07.89 OTHER CHEST PAIN 04/04/2018 GERBER LAWSON APRN Ot Z82.49 FAMILY HX OF ISCHEM HEART DIS AND OTH DI 04/04/2018 GERBER LAWSON APRN Ot Z87.448 PERSONAL HISTORY OF OTHER DISEASES OF UR 04/04/2018 GERBER LAWSON APRN Ot Z87.891 PERSONAL HISTORY OF NICOTINE DEPENDENCE 04/04/2018 GERBER LWASON HAND SPRAYER Ot Z88.0 ALLERGY STATUS TO PENICILLIN 04/04/2018 GERBER LAWSON APRN Ot Z88.2 ALLERGY STATUS TO SULFONAMIDES STATUS 04/04/2018 GERBER LAWSON APRN Ot Z88.8 ALLERGY STATUS TO OTH DRUG/MEDS/BIOL SUB 04/04/2018 GERBER LAWSON HAND SPRAYER Ot Z97.5 PRESENCE OF (INTRAUTERINE) CONTRACEPTIVE 04/04/2018 GERBER LAWSON APRN Ot Z98.890 OTHER SPECIFIED POSTPROCEDURAL STATES 04/04/2018 GERBER LAWSON APRN Ot R00.0 TACHYCARDIA, UNSPECIFIED 04/04/2018 GERBER LAWSON HAND SPRAYER Ot R00.2 PALPITATIONS 04/04/2018 GERBER LAWSON APRN Ot R07.89 OTHER CHEST PAIN 04/04/2018 GERBER LAWSON APRN Ot Z82.49 FAMILY HX OF ISCHEM HEART DIS AND OTH DI 04/04/2018 GERBER LAWSON APRN Ot Z87.448 PERSONAL HISTORY OF OTHER DISEASES OF UR 04/04/2018 GERBER LAWSON APRN Ot Z87.891 PERSONAL HISTORY OF NICOTINE DEPENDENCE 04/04/2018 GERBER LAWSON APRN Ot Z88.0 ALLERGY STATUS TO PENICILLIN 04/04/2018 GERBER LAWSON APRN Ot Z88.2 ALLERGY STATUS TO SULFONAMIDES STATUS 04/04/2018 GERBER LAWSON APRN Ot Z88.8 ALLERGY STATUS TO OTH DRUG/MEDS/BIOL SUB 04/04/2018 GERBER LAWSON APRN Ot Z97.5 PRESENCE OF (INTRAUTERINE) CONTRACEPTIVE 04/04/2018 GERBER LAWSON APRN Ot Z98.890 OTHER SPECIFIED POSTPROCEDURAL STATES 05/19/2018 Justin CASTILLO MD Ot M79.89 OTHER SPECIFIED SOFT TISSUE DISORDERS 05/19/2018 Justin CASTILLO MD Ot R00.2 PALPITATIONS 05/19/2018 Justin CASTILLO MD Ot R06.02 SHORTNESS OF BREATH 07/27/2018 MARISEL IVY MD Ot 244.9 HYPOTHYROIDISM NOS 07/27/2018 MARSIEL IVY MD R Ot 724.5 BACKACHE NOS 07/27/2018 MARISEL IVY MD R Ot 722.10 LUMBAR DISC DISPLACEMENT 07/27/2018 MARISEL IVY MD R Ot 272.4 HYPERLIPIDEMIA NEC/NOS 07/27/2018 Ot 620.2 OVARIAN CYST NEC/NOS 07/27/2018 Ot 791.9 ABN URINE FINDINGS NEC 07/27/2018 MARISEL IVY MD R Ot R06.00 DYSPNEA, UNSPECIFIED 07/27/2018 MARISEL IVY MD Ot R07.89 OTHER CHEST PAIN 07/27/2018 Justin CASTILLO MD Ot M79.89 OTHER SPECIFIED SOFT TISSUE DISORDERS 07/27/2018 Justin CASTILLO MD Ot R00.2 PALPITATIONS 07/27/2018 Justin CASTILLO MD Ot R06.02 SHORTNESS OF BREATH 07/27/2018 Justin CASTILLO MD Ot M79.89 OTHER SPECIFIED SOFT TISSUE DISORDERS 07/27/2018 Justin CASTILLO MD Ot R00.2 PALPITATIONS 07/27/2018 JONATHAN JOHNSTON, Justin KINSEY Ot R06.02 SHORTNESS OF BREATH 07/27/2018 Justin CASTILLO MD Ot M79.89 OTHER SPECIFIED SOFT TISSUE DISORDERS 07/27/2018 Justin CASTILLO MD Ot R00.2 PALPITATIONS 07/27/2018 Justin CASTILLO MD Ot R06.02 SHORTNESS OF BREATH 07/31/2018 JULIANNE MUNIZ Ot R10.12 LEFT UPPER QUADRANT PAIN 07/31/2018 JULIANNE MUNIZ Ot R10.12 LEFT UPPER QUADRANT PAIN 08/09/2018 JULIANNE MUNIZ Ot R10.12 LEFT UPPER QUADRANT PAIN 08/16/2018 Justin CASTILLO MD Ot M79.89 OTHER SPECIFIED SOFT TISSUE DISORDERS 08/16/2018 Justin CASTILLO MD Ot R00.2 PALPITATIONS 08/16/2018 Justin CASTILLO MD Ot R06.02 SHORTNESS OF BREATH 08/16/2018 TAWANA DENIS DO Ot Z01.818 ENCOUNTER FOR OTHER PREPROCEDURAL EXAMIN 08/16/2018 MARISEL IVY MD Ot K56.609 UNSP INTESTNL OBST, UNSP TO PARTIAL V 08/16/2018 MARISEL IVY MD Ot Z90.49 ACQUIRED ABSENCE OF OTHER SPECIFIED PART 08/17/2018 Justin CASTILLO MD Ot M79.89 OTHER SPECIFIED SOFT TISSUE DISORDERS 08/17/2018 Justin CASTILLO MD Ot R00.2 PALPITATIONS 08/17/2018 Justin CASTILLO MD Ot R06.02 SHORTNESS OF BREATH 08/17/2018 TAWANA DENIS DO Ot Z01.818 ENCOUNTER FOR OTHER PREPROCEDURAL EXAMIN 08/17/2018 TAWANA DENIS DO Ot Z01.818 ENCOUNTER FOR OTHER PREPROCEDURAL EXAMIN 08/17/2018 Justin CASTILLO MD Ot M79.89 OTHER SPECIFIED SOFT TISSUE DISORDERS 08/17/2018 Justin CASTILLO MD Ot R00.2 PALPITATIONS 08/17/2018 Justin CASTILLO MD Ot R06.02 SHORTNESS OF BREATH 08/18/2018 SPINDALE TAWANA HANCOCK Ot Z01.818 ENCOUNTER FOR OTHER PREPROCEDURAL EXAMIN Procedures There is no data. Results Test [...] culture - 11/19/17 10:30 Bacterial urine culture [id number] NRG COLONY COUNT >100,000/ML NRG FTX;REPORTABLE SENSITIVITY REPORTED AT 1623, 5-18 NR Bacterial susceptibility panel - 11/19/17 10:30 Gentamicin [...] susceptibility test by minimum inhibitory concentration - NR Complete blood count (CBC) with automated white [...] protein measurement (mass/volume) 0.14 mg /dL 0.00-0.50 Complete blood count (CBC) with automated white blood cell (WBC) differential - 04/01/18 16:02 Blood leukocytes automated count (number/volume) 14.2 10*3/uL 4.3-11.0 Blood erythrocytes automated count (number/volume) 4.60 10*6/uL 4.35-5.85 Venous blood hemoglobin measurement (mass/volume) 14.0 g/dL 11.5-16.0 Blood hematocrit (volume fraction) 40 % 35-52 Automated erythrocyte mean corpuscular volume 86 [foz_us] 80-99 Automated erythrocyte mean corpuscular hemoglobin (mass per erythrocyte) 30 pg 25-34 Automated erythrocyte mean corpuscular hemoglobin concentration measurement ( mass/volume) 35 g/dL 32-36 Automated erythrocyte distribution width ratio 12.1 % 10.0-14.5 Automated blood platelet count (count/volume) 365 10*3/uL 130-400 Automated blood platelet mean volume measurement 9.0 [foz_us] 7.4-10.4 Automated blood neutrophils/100 leukocytes 77 % 42-75 Automated blood lymphocytes/100 leukocytes 17 % 12-44 Blood monocytes/100 leukocytes 5 % 0-12 Automated blood eosinophils/100 leukocytes 1 % 0-10 Automated blood basophils/100 leukocytes 0 % 0-10 Blood neutrophils automated count (number/volume) 10.9 10*3 1.8-7.8 Blood lymphocytes automated count (number/volume) 2.4 10*3 1.0-4.0 Blood monocytes automated count (number/volume) 0.8 10*3 0.0-1.0 Automated eosinophil count 0.1 10*3/uL 0.0-0.3 Automated blood basophil count (count/volume) 0.0 10*3/uL 0.0-0.1 Comprehensive metabolic panel - 04/01/18 16:02 Serum or plasma sodium measurement (moles/volume) 137 mmol/L 135-145 Serum or plasma potassium measurement (moles/volume) 3.5 mmol/L 3.6-5.0 Serum or plasma chloride measurement (moles/volume) 100 mmol/L 98-107 Carbon dioxide 24 mmol/L 21-32 Serum or plasma anion gap determination (moles/volume) 13 mmol/L 5-14 Serum or plasma urea nitrogen measurement (mass/volume) 13 mg/dL 7-18 Serum or plasma creatinine measurement (mass/volume) 0.90 mg/dL 0.60-1.30 Serum or plasma urea nitrogen/creatinine mass ratio 14 NRG Serum or plasma creatinine measurement with calculation of estimated glomerular filtration rate > NRG Serum or plasma glucose measurement (mass/volume) 119 mg/dL 70-105 Serum or plasma calcium measurement (mass/volume) 9.8 mg/dL 8.5-10.1 Serum or plasma total bilirubin measurement (mass/volume) 0.6 mg/dL 0.1-1.0 Serum or plasma alkaline phosphatase measurement (enzymatic activity/volume) 101 U/L 40-136 Serum or plasma aspartate aminotransferase measurement (enzymatic activity/ volume) 24 U/L 5-34 Serum or plasma alanine aminotransferase measurement (enzymatic activity/volume ) 26 U/L 0-55 Serum or plasma protein measurement (mass/volume) 7.5 g/dL 6.4-8.2 Serum or plasma albumin measurement (mass/volume) 4.4 g/dL 3.2-4.5 CALCIUM CORRECTED 9.5 mg/dL 8.5-10.1 Fibrin D-dimer FEU measurement in platelet poor plasma (mass/volume) - 16:02 Fibrin D-dimer FEU measurement in platelet poor plasma (mass/volume) 0.27 ug/mL 0.00-0.49 THYROID STIMULATING HORMONE - 04/01/18 16:02 THYROID STIMULATING HORMONE 1.98 u[iU]/mL 0.35-4.94 Serum or plasma lithium measurement (moles/volume) - 04/01/18 16:02 BNP level < pg/mL <100.0 Blood manual differential performed detection - 04/01/18 16:02 Blood monocytes/100 leukocytes 6 % NRG Manual blood segmented neutrophils/100 leukocytes 71 % NRG Manual blood lymphocytes/100 leukocytes 22 % NRG Manual eosinophils/100 leukocytes in nose 1 % NRG Blood erythrocyte morphology finding identification NORMAL NRG Complete urinalysis with reflex to culture - 04/01/18 17:54 Urine color determination YELLOW NRG Urine clarity determination CLEAR NRG Urine pH measurement by test strip 5 5-9 Specific gravity of urine by test strip 1.025 1.016- 1.022 Urine protein assay by test strip, semi-quantitative NEGATIVE NEGATIVE Urine glucose detection by automated test strip NEGATIVE NEGATIVE Erythrocytes detection in urine sediment by light microscopy NEGATIVE NEGATIVE Urine ketones detection by automated test strip NEGATIVE NEGATIVE Urine nitrite detection by test strip NEGATIVE NEGATIVE Urine total bilirubin detection by test strip NEGATIVE NEGATIVE Urine urobilinogen measurement by automated test strip (mass/volume) NORMAL NORMAL Urine leukocyte esterase detection by dipstick NEGATIVE NEGATIVE Automated urine sediment erythrocyte count by microscopy (number/high power field) NONE NRG Automated urine sediment leukocyte count by microscopy (number/high power field ) [HPF] NRG Bacteria detection in urine sediment by light microscopy MODERATE NRG Squamous epithelial cells detection in urine sediment by light microscopy 0-5 NRG Crystals detection in urine sediment by light microscopy NONE NRG Casts detection in urine sediment by light microscopy NONE NRG Mucus detection in urine sediment by light microscopy NEGATIVE NRG Complete urinalysis with reflex to culture YES NRG Urine drug screening test - 04/01/18 17:54 Urine phencyclidine detection by screening method NEGATIVE NEGATIVE Urine benzodiazepines detection by screening method POSITIVE NEGATIVE Urine cocaine detection NEGATIVE NEGATIVE Urine amphetamines detection by screening method NEGATIVE NEGATIVE Urine methamphetamine detection by screening method NEGATIVE NEGATIVE Urine cannabinoids detection by screening method NEGATIVE NEGATIVE Urine opiates detection by screening method NEGATIVE NEGATIVE Urine barbiturates detection NEGATIVE NEGATIVE Screening urine tricyclic antidepressants detection NEGATIVE NEGATIVE Urine methadone detection by screening method NEGATIVE NEGATIVE Urine oxycodone detection NEGATIVE NEGATIVE Urine propoxyphene detection NEGATIVE NEGATIVE Bacterial urine culture - 04/01/18 17:54 Bacterial urine culture NG NRG Complete blood count (CBC) with automated white blood cell (WBC) differential - 07/27/18 13:11 Blood leukocytes automated count (number/volume) 10.5 10*3/uL 4.3-11.0 Blood erythrocytes automated count (number/volume) 4.88 10*6/uL 4.35-5.85 Venous blood hemoglobin measurement (mass/volume) 14.8 g/dL 11.5-16.0 Blood hematocrit (volume fraction) 42 % 35-52 Automated erythrocyte mean corpuscular volume 87 [foz_us] 80-99 Automated erythrocyte mean corpuscular hemoglobin (mass per erythrocyte) 30 pg 25-34 Automated erythrocyte mean corpuscular hemoglobin concentration measurement ( mass/volume) 35 g/dL 32-36 Automated erythrocyte distribution width ratio 12.6 % 10.0-14.5 Automated blood platelet count (count/volume) 316 10*3/uL 130-400 Automated blood platelet mean volume measurement 8.9 [foz_us] 7.4-10.4 Automated blood neutrophils/100 leukocytes 68 % 42-75 Automated blood lymphocytes/100 leukocytes 25 % 12-44 Blood monocytes/100 leukocytes 6 % 0-12 Automated blood eosinophils/100 leukocytes 1 % 0-10 Automated blood basophils/100 leukocytes 0 % 0-10 Blood neutrophils automated count (number/volume) 7.1 10*3 1.8-7.8 Blood lymphocytes automated count (number/volume) 2.7 10*3 1.0-4.0 Blood monocytes automated count (number/volume) 0.6 10*3 0.0-1.0 Automated eosinophil count 0.1 10*3/uL 0.0-0.3 Automated blood basophil count (count/volume) 0.0 10*3/uL 0.0-0.1 Comprehensive metabolic panel - 07/27/18 13:11 Serum or plasma sodium measurement (moles/volume) 139 mmol/L 135-145 Serum or plasma potassium measurement (moles/volume) 4.0 mmol/L 3.6-5.0 Serum or plasma chloride measurement (moles/volume) 105 mmol/L 98-107 Carbon dioxide 23 mmol/L 21-32 Serum or plasma anion gap determination (moles/volume) 11 mmol/L 5-14 Serum or plasma urea nitrogen measurement (mass/volume) 6 mg/dL 7-18 Serum or plasma creatinine measurement (mass/volume) 0.72 mg/dL 0.60-1.30 Serum or plasma urea nitrogen/creatinine mass ratio 8 NRG Serum or plasma creatinine measurement with calculation of estimated glomerular filtration rate > NRG Serum or plasma glucose measurement (mass/volume) 87 mg/dL 70-105 Serum or plasma calcium measurement (mass/volume) 9.2 mg/dL 8.5-10.1 Serum or plasma total bilirubin measurement (mass/volume) 0.5 mg/dL 0.1-1.0 Serum or plasma alkaline phosphatase measurement (enzymatic activity/volume) 96 U/L 40-136 Serum or plasma aspartate aminotransferase measurement (enzymatic activity/ volume) 16 U/L 5-34 Serum or plasma alanine aminotransferase measurement (enzymatic activity/volume ) 14 U/L 0-55 Serum or plasma protein measurement (mass/volume) 7.5 g/dL 6.4-8.2 Serum or plasma albumin measurement (mass/volume) 4.3 g/dL 3.2-4.5 CALCIUM CORRECTED 9.0 mg/dL 8.5-10.1 Serum or plasma amylase measurement (enzymatic activity/volume) - 07/27/18 13: 11 Serum or plasma amylase measurement (enzymatic activity/volume) 41 U /L 25-125 Lipase - 07/27/18 13:11 Lipase 27 U/L 8-78 Encounters ACCT No. Visit Date/Time Discharge Status Pt. Type Provider Facility Loc./Unit Complaint [id number] 08/17/2018 11:00:00 08/17/2018 23:59:59 CLS Preadmit Justin CASTILLO MD [facility] CARD PALPITATIONS [id number] 08/17/2018 09:00:00 08/17/2018 10:16:00 DIS Outpatient TAWANA DENIS DO [facility] PREOP COLONOSCOPY/EGD [id number] 06/15/2018 09:51:00 08/16/2018 00:01:00 DIS Outpatient Justin CASTILLO MD [facility] CARD PALPITATIONS [id number] 08/02/2018 10:26:00 08/02/2018 23:59:59 CLS Outpatient CATA JOHNSTON, MARISEL R [facility] RAD LUQ PAIN [id number] 07/27/2018 13:01:00 07/27/2018 23:59:59 CLS Outpatient JULIANNE MUNIZ [facility] LAB R10.12 [id number] 05/18/2018 09:35:00 05/18/2018 23:59:59 CLS Outpatient Justin CASTILLO MD [facility] CARD PALPITATIONS [id number] 04/25/2018 11:28:00 04/25/2018 23:59:59 CLS Outpatient Justin CASTILLO MD [facility] CARD PALPITATIONS [id number] 04/01/2018 15:53:00 04/01/2018 18:46:00 DIS Emergency GERBER LAWSON APRN [facility] ER CHEST PAIN/SOB [id number] 11/19/2017 10:16:00 11/19/2017 13:51:00 DIS Emergency MICHAEL MCCLURE MD D [facility] ER URINATING BLOOD [id number] 11/15/2017 07:28:00 11/15/2017 23:59:59 CLS Preadmit ERROL ROMANOP [facility] RAD BILAT LOWER PELVIC PAIN [id number] 08/09/2017 15:22:00 08/09/2017 23:59:59 CLS Preadmit ERROL ROMANO INORGANIC CHEMIST [facility] RAD LLQ PAIN [id number] 03/14/2017 10:02:00 03/14/2017 23:59:59 CLS Preadmit LUCERO JOHNSTON, CARMEN [place] [facility] RAD Z34.80 NORMAL [id number] 11/22/2016 10:15:00 11/22/2016 23:59:59 CLS Preadmit DAYSI RUSS MD [facility] RAD H/O UTI [id number] 10/30/2016 22:59:00 10/31/2016 00:20:00 DIS Emergency MICHAEL MCCLURE MD [facility] ER LEFT THUMB LACERATION [id number] 08/03/2016 18:00:00 08/03/2016 22:43:00 DIS Emergency LONNIE LUTZ DO [facility] ER ABD PAIN,NAUSEA [id number] 05/29/2016 18:21:00 05/29/2016 19:56:00 DIS Emergency GARRETT PURVIS MD [facility] ER POSS ALLERGIC REACTION , SHAKING AND FACE SWELLING [id number] 11/25/2015 11:01:00 11/25/2015 23:59:59 CLS Outpatient MARISEL IVY MD [facility] RAD DYSPNEA,TIGHTNESS [id number] 08/07/2015 09:29:00 09/24/2015 10:21:00 DIS Outpatient MARISEL IVY MD [facility] REHAB BACK PAIN WITH RADICULOPATHY [id number] 07/22/2015 08:30:00 07/23/2015 00:01:00 DIS Outpatient MARISEL IVY MD [facility] REHAB BACK PAIN WITH RADICULOPATHY [id number] 06/20/2014 10:39:00 06/20/2014 13:28:00 DIS Emergency GARRETT PURVIS MD [facility] ER CHEST PAIN [id number] 06/04/2014 09:35:00 06/04/2014 23:59:59 CLS Outpatient MARISEL IVY MD [facility] LAB HLP [id number] 03/11/2014 15:49:00 03/11/2014 17:59:00 DIS Emergency LONNIE LUTZ DO [facility] ER ARM AND CHEST PAIN [id number] 01/17/2014 12:52:00 01/17/2014 23:59:59 CLS Outpatient MARISEL IVY MD [facility] RAD PAIN UPPER L SPINE W/ BUMP [id number] 01/14/2014 14:19:00 01/14/2014 23:59:59 CLS Outpatient MARISEL IVY MD [facility] RAD PAIN UPPER L SPINE W/ BUMP [id number] 12/04/2013 09:49:00 12/04/2013 23:59:59 CLS Outpatient MARISEL IVY MD [facility] LAB HYPOTHYROIDISM [id number] 08/13/2013 10:47:00 08/13/2013 23:59:59 CLS Outpatient GERI PINEDA DO [facility] RAD [id number] 06/06/2013 14:43:00 06/06/2013 23:59:59 CLS Outpatient MARISEL IVY MD [facility] RAD NUMBNESS RT ARM,PAIN RT SHOULDER [id number] 06/06/2013 11:08:00 06/06/2013 23:59:59 CLS Outpatient GERI PINEDA DO [facility] RAD PELVIC PAIN [id number] 06/04/2013 15:12:00 06/04/2013 23:59:59 CLS Outpatient MARISEL IVY MD [facility] RAD PAIN AND NUMBNESS RUE [id number] 05/24/2013 11:12:00 05/24/2013 23:59:59 CLS Outpatient CATA JOHNSTON, MARISEL Pereira [facility] RAD BILATERAL SHOULDER PAIN, [id number] 05/07/2013 19:36:00 05/07/2013 20:26:00 DIS Emergency GERBER LAWSON APRN [facility] ER POSS FOREIGN OBJECT IN L FOOT [id number] 08/22/2018 07:36:00 ACT Outpatient TAWANA DENIS DO [facility] ENDO CHANGE IN STOOLS/CONSTIPATION/LUQ ABD PAIN [id number] 09/05/2014 15:24:00 Document Registration [id number] 11/01/2012 03:01:00 Document Registration [id number] 09/03/2012 23:09:00 Document Registration [id number] 09/01/2012 08:07:00 Document Registration
[2018-08-22] MEDS ORDERED: LACTATED RINGERS 1,000 ML IV STA (08:09)
--- NOTE | 2018-08-22 08:21 | Progress Note-Pre Operative ---
Pre-Operative Progress Note H&P Reviewed The H&P was reviewed, patient examined and no changes noted. Date Seen by Provider: Aug 22, 2018 Time Seen by Provider: 08:20 Date H&P Reviewed: Aug 22, 2018 Time H&P Reviewed: 08:20 Pre-Operative Diagnosis: luq abdominal pain, melena, change in bowel habits TAWANA DENIS DO Aug 22, 2018 08:21
[2018-08-22 08:23] VITALS: BP 109/73
[2018-08-22] MEDS ORDERED: HURRICAINE EXT TUBE (BENZOCAINE) XX ONE (08:30)
[2018-08-22] MEDS ORDERED: HURRICAINE EXT TUBE (BENZOCAINE) ONE (08:37)
[2018-08-22] MEDS ORDERED: PROPOFOL INJECTION 50 ML IV ONE ×2 (08:38→09:00)
[2018-08-22] MEDS ORDERED: MIDAZOLAM 2 MG/2 ML (VERSED) VIAL ONE (08:38)
--- NOTE | 2018-08-22 09:20 | Progress Note-Post Operative ---
Post-Operative Progess Note Surgeon (s)/Restaurant Front Manager (s) Surgeon TAWANA DENIS DO Restaurant Front Manager: na Pre-Operative Diagnosis luq abdominal pain, melena, change in bowel habits Post-Operative Diagnosis normal egd/colonoscopy Procedure & Operative Findings Date of Procedure 08/22/18 Procedure Performed/Findings egd c biopsy, colonoscopy Anesthesia Type per coil connector repairer Estimated Blood Loss Estimated blood loss (mL): none Specimens/Packing Specimens Removed antrum TAWANA DENIS DO Aug 22, 2018 09:20
--- NOTE | 2018-08-22 09:23 | Discharge Inst-Simple/Standard ---
Discharge Inst-Standard Patient Instructions/Follow Up Plan of Care/Instructions/FU: 2 weeks Daryl Activity as Tolerated: Yes Discharge Diet: Regular Diet TAWANA DENIS DO Aug 22, 2018 09:23
[2018-08-22 09:35] VITALS: BP 88/55
[2018-08-22 10:05] VITALS: BP 97/69
[2018-08-22 10:14] VITALS: BP 97/69
--- NOTE | 2018-08-22 10:14 | NUR ---
ALERT, DENIES COMPLAINTS, TAKING PO FLUIDS WITHOUT PROBLEM. STATES SHE IS READY FOR DISMISSAL.
--- NOTE | 2018-08-22 12:10 | OPERATIVE REPORT ---
DATE OF SERVICE: 08/22/2018 PREOPERATIVE DIAGNOSES: Left upper quadrant abdominal pain, change in bowel habits, melena. POSTOPERATIVE DIAGNOSES: Normal EGD, colonoscopy. PROCEDURES: EGD with biopsy, colonoscopy. SURGEON: Tawana Brito DO ANESTHESIA: Per IMPROVEMENT SPEC. ESTIMATED BLOOD LOSS: None. COMPLICATIONS: None. INDICATIONS: The patient is a 37-year-old female who has been having left upper quadrant abdominal pain, questionable blood in the stools and change in bowel habits. She understands risks and benefits of procedures and wished to proceed with procedures. Consent was signed in the chart. DESCRIPTION OF PROCEDURE: The patient was taken to the endoscopy suite, placed in left lateral recumbent position. Timeout was performed. Scope was inserted in mouth, down the esophagus, stomach and into the duodenum without difficulty. There were no polyps, mass or ulcerations. The scope was slowly retracted back. There were no polyps, masses or ulcerations in the duodenum and stomach. Questionable erythematous changes, biopsy of the antrum was obtained. Scope was retroflexed noting no other pathology. Scope was returned to its normal position, slowly withdrawn to the distal esophagus, which had normal appearance. Scope was slowly retracted back to completely remove, noting no other pathology. Digital rectal exam was performed. There were no palpable polyps, mass or ulcerations. The scope was inserted in the rectum and advanced all the way to the cecum with minimal difficulty. Prep was adequate. Scope was then slowly retracted back. There were no polyps, mass or ulceration of the cecum, ascending, transverse, descending and sigmoid colon. Once in the rectum, scope was retroflexed noting no other pathology. Scope was returned to its normal position, slowly withdrawn until completely removed. The patient tolerated procedure well without complications. She was taken to recovery room in stable condition. RECOMMENDATIONS: The patient will follow up in 2 weeks to discuss pathology results. We will see how she is doing at that time. She will need repeat colonoscopy per routine screening guidelines. If she has any return of symptoms, she should be reevaluated at that time. Job ID: [id number] DocumentID: [id number] Dictated Date: 08/22/2018 09:26:21 Reinsurance Claim Analyst Date: 08/22/2018 12:09:18 Dictated By: TAWANA BRITO DO
--- NOTE | 2018-08-22 15:48 | Anesthesia-General Post-Op ---
MAC Patient Condition Mental Status/LOC: Same as Preop Cardiovascular: Satisfactory Nausea/Vomiting: Absent Respiratory: Satisfactory Pain: Controlled Complications: Absent Post Op Complications Complications None Follow Up Care/Instructions Patient Instructions None needed. Anesthesiology Discharge Order Discharge Order Patient was seen this morning after the procedure and she was doing well, no complaints, stable vital signs, no apparent adverse anesthesia problems. STEPHON DOYLE DO Aug 22, 2018 15:48
== END 2018-08-22 10:14 | disposition home or self-care (01) ==
LOC: ENDO 07:36
PROVIDERS: ATTEND Surgery
DX: K92.1 Melena (principal); R19.4 Change in bowel habit; R10.12 Left upper quadrant pain; K59.00 Constipation, unspecified; I47.1 Supraventricular tachycardia
CPT/HCPCS: 84703

== ENCOUNTER 2018-08-25 16:55 | Emergency (ER) | payer BC ==
[~2018-08-25] VITALS: Ht 172.7 cm; Wt 90.7 kg
--- OUTSIDE RECORDS SUMMARY | 2018-08-25 17:01 | XMS REPORT | Continuity of Care Document ---
Author Author [facility] Organization [facility] Address Unknown Phone Unavailable Allergies Active Description Code Type Severity Reaction Onset Reported/Identified Relationship to Patient Clinical Status Yes sulfamethoxazole [id number] Drug Allergy Unknown N/A 05/29/2016 Yes trimethoprim [id number] Drug Allergy Unknown N/A 05/29/2016 Yes Penicillins [id number] Drug Allergy Mild N/A 08/17/2018 Yes sulfamethoxazole [id number] Drug Allergy Mild HIVES 08/17/2018 Yes trimethoprim [id number] Drug Allergy Mild HIVES 08/17/2018 Medications There is no data. Problems Date Dx Coded Attending Type Code Diagnosis Diagnosed By 09/04/2012 Ot 786.50 CHEST PAIN NOS 09/04/2012 Ot 786.59 CHEST PAIN NEC 09/04/2012 Ot 790.99 BLOOD EXAM - OT NONSPECIFIC FINDINGS 11/01/2012 Ot 789.00 ABDOMINAL PAIN, UNSPECIFIED SITE 05/07/2013 GERBER LAWSON BLOCK HACKER Ot 892.0 OPEN WOUND OF FOOT 05/07/2013 GERBER LAWSON BLOCK HACKER Ot E000.8 OTHER EXTERNAL CAUSE STATUS 05/07/2013 GERBER LAWSON BLOCK HACKER Ot E849.0 ACCIDENT IN HOME 05/07/2013 GERBER LAWSON BLOCK HACKER Ot E920.4 ACCID-OTHER HAND TOOLS 05/07/2013 GERBER LAWSON BLOCK HACKER Ot V06.1 [id number], COMBINED [ 03/11/2014 LONNIE LUTZ DO Ot [...] APRN Ot R00.2 PALPITATIONS 04/01/2018 GERBER LAWSON BLOCK HACKER Ot R07.89 OTHER CHEST PAIN 04/01/2018 GERBER LAWSON APRN Ot Z82.49 FAMILY HX OF ISCHEM HEART DIS AND OTH DI 04/01/2018 GERBER LAWSON APRN Ot Z87.448 PERSONAL HISTORY OF OTHER DISEASES OF UR 04/01/2018 GERBER LAWSON APRN Ot Z87.891 PERSONAL HISTORY OF NICOTINE DEPENDENCE 04/01/2018 GERBER LAWSON APRN Ot Z88.0 ALLERGY STATUS [...] HISTORY OF NICOTINE DEPENDENCE 04/04/2018 GERBER LAWSON BLOCK HACKER Ot Z88.0 ALLERGY STATUS TO PENICILLIN 04/04/2018 GERBER LAWSON APRN Ot Z88.2 ALLERGY STATUS TO SULFONAMIDES STATUS 04/04/2018 GERBER LAWSON APRN Ot Z88.8 ALLERGY STATUS TO OTH DRUG/MEDS/BIOL SUB 04/04/2018 GERBER LAWSON BLOCK HACKER Ot Z97.5 PRESENCE OF (INTRAUTERINE) CONTRACEPTIVE 04/04/2018 GERBER LAWSON APRN Ot Z98.890 OTHER SPECIFIED POSTPROCEDURAL STATES 04/04/2018 GERBER LAWSON APRN Ot R00.0 TACHYCARDIA, UNSPECIFIED 04/04/2018 GERBER LAWSON BLOCK HACKER Ot R00.2 PALPITATIONS 04/04/2018 GERBER LAWSON APRN [...] IVY MD Ot 244.9 HYPOTHYROIDISM NOS 07/27/2018 MARISEL IVY MD R Ot 724.5 BACKACHE [...] MD Ot R06.02 SHORT[facility] OF BREATH [facility] ENCOUNTER FOR OTHER PREPROCEDURAL EXAMIN 08/22/2018 [facility] I47.1 SUPRAVENTRICULAR TACHYCARDIA 08/22/2018 [facility] K59.00 CONSTIPATION, UNSPECIFIED 08/22/2018 [facility] K92.1 MELENA 08/22/2018 [facility] R10.12 LEFT UPPER QUADRANT PAIN 08/22/2018 [facility] R19.4 CHANGE IN BOWEL HABIT Procedures There is no data. Results Test [...] culture - 11/19/17 10:30 Bacterial urine culture [id number] NRG COLONY COUNT >100,000/ML NRG FTX;REPORTABLE SENSITIVITY REPORTED AT 1623, 5-6-18 NR Bacterial susceptibility panel - 11/19/17 10:30 [...] Automated blood platelet mean volume measurement 8.9 [[facility]] 7.4-10.4 Automated blood neutrophils/100 leukocytes 68 % [...] - 07/27/18 13:11 Lipase 27 U/L 8-78 Urine beta human chorionic gonadotropin (hCG) measurement - 08/22/18 08:15 Urine beta human chorionic gonadotropin (hCG) measurement NEGATIVE NEGATIVE Encounters ACCT No. Visit Date/Time Discharge Status Pt. Type Provider Facility Loc./Unit Complaint [id number] 08/22/2018 07:36:00 08/22/2018 10:14:00 DIS Outpatient TAWANA DENIS DO [facility] ENDO CHANGE IN STOOLS/ CONSTIPATION/LUQ ABD PAIN [id number] 08/17/2018 11:00:00 08/17/2018 23:59:59 CLS Preadmit Justin CASTILLO MD [facility] CARD PALPITATIONS [id number] 08/17/2018 09:00:00 08/17/2018 10:16:00 DIS Outpatient TAWANA DENIS DO [facility] PREOP COLONOSCOPY/EGD [id number] 06/15/2018 09:51:00 08/16/2018 00:01:00 DIS Outpatient Justin CASTILLO MD [facility] CARD PALPITATIONS [id number] 08/02/2018 10:26:00 08/02/2018 23:59:59 CLS Outpatient MARISEL IVY MD [facility] RAD LUQ PAIN [id number] 07/27/2018 13:01:00 07/27/2018 23:59:59 CLS Outpatient JULIANNE MUNIZ [facility] LAB R10.12 [id number] 05/18/2018 09:35:00 05/18/2018 23:59:59 CLS Outpatient Justin CASTILLO MD [facility] CARD PALPITATIONS [id number] 04/25/2018 11:28:00 04/25/2018 23:59:59 CLS Outpatient Justin CASTILLO MD [facility] CARD PALPITATIONS [id number] 04/01/2018 15:53:00 04/01/2018 18:46:00 DIS Emergency GERBER LAWSON APRN [facility] ER CHEST PAIN/SOB [id number] 11/19/2017 10:16:00 11/19/2017 13:51:00 DIS Emergency MICHAEL MCCLURE MD [facility] ER URINATING BLOOD [id number] 11/15/2017 07:28:00 11/15/2017 23:59:59 CLS Preadmit ROMANOERROL ELECTRICAL INSTALLER [facility] RAD BILAT LOWER PELVIC PAIN [id number] 08/09/2017 15:22:00 08/09/2017 23:59:59 CLS Preadmit ERROL ROMANO ELECTRICAL INSTALLER [facility] RAD LLQ PAIN [id number] 03/14/2017 10:02:00 03/14/2017 23:59:59 CLS Preadmit CARMEN BARKER MD [facility] RAD Z34.80 NORMAL [id number] 11/22/2016 10:15:00 11/22/2016 23:59:59 CLS Preadmit DAYSI RUSS MD [facility] RAD H/O UTI [id number] 10/30/2016 22:59:00 10/31/2016 00:20:00 DIS Emergency MICHAEL MCCLURE MD [facility] ER LEFT THUMB LACERATION [id number] 08/03/2016 18:00:00 08/03/2016 22:43:00 DIS Emergency LONNIE LUTZ DO [facility] ER ABD PAIN,NAUSEA [id number] 05/29/2016 18:21:00 05/29/2016 19:56:00 DIS Emergency GARRETT PURVIS MD [facility] ER POSS ALLERGIC REACTION , SHAKING AND FACE SWELLING [id number] 11/25/2015 11:01:00 11/25/2015 23:59:59 CLS Outpatient MARISEL IVY MD [facility] RAD DYSPNEA,TIGHTNESS [id number] 08/07/2015 09:29:00 09/24/2015 10:21:00 DIS Outpatient MARISEL IVY MD [facility] REHAB BACK PAIN WITH RADICULOPATHY [id number] 07/22/2015 08:30:00 07/23/2015 00:01:00 DIS Outpatient MARISEL IVY MD [facility] REHAB BACK PAIN WITH RADICULOPATHY [id number] 06/20/2014 10:39:00 06/20/2014 13:28:00 DIS Emergency GARRETT PURVIS MD [facility] ER CHEST PAIN [id number] 06/04/2014 09:35:00 06/04/2014 23:59:59 CLS Outpatient MARISEL IVY MD [facility] LAB HLP [id number] 03/11/2014 15:49:00 03/11/2014 17:59:00 DIS Emergency BOLIVAR LONNIE K [facility] ER ARM AND CHEST PAIN [id number] 01/17/2014 12:52:00 01/17/2014 23:59:59 CLS Outpatient MARISEL IVY MD [facility] RAD PAIN UPPER L SPINE W/ BUMP [id number] 01/14/2014 14:19:00 01/14/2014 23:59:59 CLS Outpatient MARISEL IVY MD [facility] RAD PAIN UPPER L SPINE W/ BUMP [id number] 12/04/2013 09:49:00 12/04/2013 23:59:59 CLS Outpatient MARISEL IVY MD [facility] LAB HYPOTHYROIDISM [id number] 08/13/2013 10:47:00 08/13/2013 23:59:59 CLS Outpatient EDWIN HANCOCK GERI S [facility] RAD [id number] 06/06/2013 14:43:00 06/06/2013 23:59:59 CLS Outpatient MARISEL IVY MD [facility] RAD NUMBNESS RT ARM,PAIN RT SHOULDER [id number] 06/06/2013 11:08:00 06/06/2013 23:59:59 CLS Outpatient GERI PINEDA DO S [facility] RAD PELVIC PAIN [id number] 06/04/2013 15:12:00 06/04/2013 23:59:59 CLS Outpatient MARISEL IVY MD [facility] RAD PAIN AND NUMBNESS RUE [id number] 05/24/2013 11:12:00 05/24/2013 23:59:59 CLS Outpatient MARISEL IVY MD [facility] RAD BILATERAL SHOULDER PAIN, [id number] 05/07/2013 19:36:00 05/07/2013 20:26:00 DIS Emergency GERBER LAWSON APRN [facility] ER POSS FOREIGN OBJECT IN L FOOT [id number] 08/25/2018 16:56:00 ACT Emergency GRABIEL KAPLAN MD [facility] ER FEVER [id number] 09/05/2014 15:24:00 Document Registration [id number] 11/01/2012 03:01:00 Document Registration [id number] 09/03/2012 23:09:00 Document Registration [id number] 09/01/2012 08:07:00 Document Registration
[2018-08-25 18:44] VITALS: BP 134/78
--- NOTE | 2018-08-25 18:54 | NUR ---
REPORT GIVEN TO FELICITAS SANDOVAL.
--- NOTE | 2018-08-25 19:03 | ED Cough/URI ---
General Chief Complaint: Fever-Adult/Adol Stated Complaint: FEVER Nursing Triage Note: Ambulatory to triage. Pt reports having an upper and lower scope on 08/22/18 and began running fever yesterday. Pt reports calling Dr. Brito's office today and was told to take tylenol and if fever did not go down or is higher than 101 to come to ED. Pt reports temperature at that time was 100.8. Approximately 30 minutes later pt reports temperature of 101.2. Pt reports ARANDA/migraine, chills, sweating. Pt also reports cough with pink sputum. Pt currently taking metronidazole after having leep cone biopsy on 08/09/18. Sepsis Screen: Possible Sepsis Risk Source: patient Exam Limitations: no limitations History of Present Illness Date Seen by Provider: Aug 25, 2018 Time Seen by Provider: 18:48 Initial Comments Here with fever today as well as body aches and headache. Also has nasal congestion. Started with mild low-grade fever last night and then continued today. Did take some Tylenol a few hours ago but the fever did not go away with one hour timeframe and she was concerned so she presented here. Has additional history of having leap cone biopsy August 11 and then had upper endoscopy recently. She did have antibiotics after that biopsy and that seems to have improved. She was concerned that maybe she had some problems after anesthesia. Complains of nasal congestion and mild sore throat. Does have mild cough. Fevers resolved currently. Timing/Duration: yesterday, changing over time Severity/Quality: mild, moderate, dry cough Prior Episodes/Possible Cause: occasional episodes Modifying Factors: Improves With Rest Associated Symptoms: cough, fever/chills, muscle aches, nasal congestion, nasal drainage, sore throat Allergies and Home Medications Allergies Coded Allergies: Penicillins (Verified Allergy, Mild, 08/17/18) sulfamethoxazole (Verified Allergy, Mild, HIVES, 08/17/18) trimethoprim (Verified Allergy, Mild, HIVES, 08/17/18) Home Medications No Active Prescriptions or Reported Meds Patient Home Medication List Home Medication List Reviewed: Yes Review of Systems Review of Systems Constitutional: see HPI; No chills; fever EENTM: see HPI Respiratory: cough; No short of breath Cardiovascular: no symptoms reported Gastrointestinal: no symptoms reported Musculoskeletal: see HPI, muscle pain; No muscle stiffness Skin: no symptoms reported Psychiatric/Neurological: Headache; Denies Numbness Past Rcnzmzd-Ilozde-Obizrc Hx Past Med/Social Hx: Reviewed Nursing Past Med/Soc Hx Patient Social History Alcohol Use: Denies Use Recreational Drug Use: No Smoking Status: Former Smoker Type Used: Cigarettes Former Smoker, Quit: Aug 17, 2014 2nd Hand Smoke Exposure: Yes Recent Foreign Travel: No Contact w/Someone Who Travel: No Recent Infectious Disease Expo: No Recent Hopitalizations: No Immunizations Up To Date Tetanus Booster (TDap): Unknown Seasonal Allergies Seasonal Allergies: No Past Medical History Surgeries: Yes (08/09 LEEP BX, 08/22 UPPER LOWER SCOPE) Section, Gallbladder Respiratory: No Cardiac: Yes (PSVT) Palpitations Neurological: Yes Headaches /Migraines Last Menstrual Period: May 30, 2018 Reproductive Disorders: Yes (TAKES SPIRONOLACTONE TO "REGULATE HORMONES" ) Female Reproductive Disorders: Menstrual Problems 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 Sexually Transmitted Disease: No HIV/AIDS: No Gastrointestinal: Yes (BLOOD IN STOOLS) Chronic Constipation Musculoskeletal: Yes Degenerate Disk Disease, Chronic Back Pain Endocrine: No HEENT: Yes (GLASSES) Loss of Vision: Bilateral Hearing Impairment: Denies Cancer: No Psychosocial: No Integumentary: No Blood Disorders: No Adverse Reaction/Blood Tranf: No (N/A) Family Medical History Reviewed Nursing Family Hx Heart Disease, Cancer, Diabetes Physical Exam Vital Signs - First Documented 08/25/18 17:32 Temp 100.1 Pulse 115 Resp 19 B/P (MAP) 128/77 (94) Pulse Ox 97 O2 Delivery Room Air Capillary Refill : Less Than 3 Seconds Height: 5'8.00" Weight: 200lbs. 0.0oz. 90.995613tj; 33.0 BMI Method:Stated General Appearance: WD/WN, no apparent distress HEENT: PERRL/EOMI, pharyngeal erythema, other (bilateral nasal congestion with clear rhinorrhea and moderate erythema especially on the right) Neck: non-tender, full range of motion, supple, normal inspection; No lymphadenopathy (R), No lymphadenopathy (L) Respiratory: lungs clear, normal breath sounds Cardiovascular: no murmur, tachycardia Gastrointestinal: non tender, soft Neurologic/Psychiatric: alert, oriented x 3 Skin: normal color, warm/dry Progress/Results/Core Measures Suspected Sepsis Recent Fever Within 48 Hours: Yes Infection Criteria Present: Suspected New Infection New/Unexplained Altered Menta: No Sepsis Screen: Possible Sepsis Risk SIRS Temperature:98.9 Pulse: 92 Respiratory Rate: 16 Blood Pressure 134 /78 Mean: 96 Results/Orders Micro Results Microbiology 08/25/18 Influenza Types A,B Antigen (JOSE MARTIN) - Final, Complete My Orders Orders - MICHAEL MCCLURE MD Influenza A And B Antigens (08/25/18 18:56) Vital Signs/I&O 08/25/18 08/25/18 17:32 18:44 Temp 100.1 98.9 Pulse 115 92 Resp 19 16 B/P (MAP) 128/77 (94) 134/78 (96) Pulse Ox 97 95 O2 Delivery Room Air Room Air Capillary Refill : Less Than 3 Seconds Blood Pressure Mean: 96 Progress Note : Progress Note Seen and evaluated. Influenza screen ordered. Fever resolved. Patient is mildly tachycardia at 100. Monitor patient. 1928: Influenza negative. Discharged home with return precautions. Patient verbalize understanding instructions and agreement with plan. Departure Impression Primary Impression: Upper respiratory infection Qualified Codes: J06.9 - Acute upper respiratory infection, unspecified Disposition: HOME, SELF-CARE Condition: Improved Departure-Patient Inst. Decision time for Depature: 19:05 Referrals: MARISEL IVY MD (PCP/Family) Primary Care Physician Patient Instructions: Viral Upper Respiratory Infection, Adult (DC) Add. Discharge Instructions: All discharge instructions reviewed with patient and/or family. Voiced understanding. You may take Tylenol/acetaminophen 1000 mg every 6-8 hours as needed for fever or pain. You may take ibuprofen 800 mg every 8 hours as needed for fever or pain. Drink plenty of fluids. You may use Pepcid or the generic famotidine 20 mg once or twice daily as needed while taking the ibuprofen to prevent stomach upset. Drink plenty of fluids and get plenty of rest. You may use Afrin nasal spray or the generic, 12 hour relief, 2 sprays to each nostril twice daily for the next 3 days and then stop. Do not use for more than 3 days. Return for worse pain, weakness, breathing problems, fever, vomiting or other concerns as needed. Scripts No Active Prescriptions or Reported Meds MICHAEL MCCLURE MD Aug 25, 2018 19:03
[2018-08-25 19:46] VITALS: BP 123/61
== END 2018-08-25 19:46 | disposition home or self-care (01) ==
LOC: EDUNIT# 16:55 → ER 16:56
DX: J06.9 Acute upper respiratory infection, unspecified (principal); G43.909 Migraine, unspecified, not intractable, without status migrainosus; Z82.49 Family history of ischemic heart disease and other diseases of the circulatory system; Z87.19 Personal history of other diseases of the digestive system; Z97.5 Presence of (intrauterine) contraceptive device; Z88.0 Allergy status to penicillin; Z88.2 Allergy status to sulfonamides; Z88.8 Allergy status to other drugs, medicaments and biological substances; Z87.891 Personal history of nicotine dependence; Z98.890 Other specified postprocedural states
CPT/HCPCS: 87804

== ENCOUNTER → 2018-09-02 | Outpatient (CLI) | payer BC | LOC: LABNPT 17:14 | PROVIDERS: ATTEND Nurse Practitioner Family | DX: N39.0 Urinary tract infection, site not specified (principal); R31.9 Hematuria, unspecified | CPT/HCPCS: 87088 ==

== ENCOUNTER 2018-09-14 22:38 | Emergency (ER) | payer BC ==
[~2018-09-14] VITALS: Ht 175.3 cm; Wt 90.7 kg
[2018-09-14 23:26] LABS: BILIRUBIN,URINE NEGATIVE (NEGATIVE); CLARITY,URINE CLEAR; COLOR,URINE YELLOW; GLUCOSE, URINE (UA) NEGATIVE (NEGATIVE); KETONES,URINE NEGATIVE (NEGATIVE); LEUKOCYTE ESTERASE ,URINE 1+ (NEGATIVE); NITRITE,URINE NEGATIVE (NEGATIVE); PH,URINE 6.5 (5-9); PROTEIN,URINE NEGATIVE (NEGATIVE); UROBILINOGEN,URINE NORMAL (NORMAL)
[2018-09-14 23:39] LABS: BASOPHILS # (AUTO) 0.1 10^3/uL (0.0-0.1); BASOPHILS % (AUTO) 1 % (0-10); EOSINOPHILS # (AUTO) 0.2 10^3/uL (0.0-0.3); EOSINOPHILS % (AUTO) 2 % (0-10); HEMATOCRIT 41 % (35-52); HEMOGLOBIN 14.2 G/DL (11.5-16.0); LYMPHOCYTES # (AUTO) 3.5 X 10^3 (1.0-4.0); LYMPHOCYTES % (AUTO) 37 % (12-44); MEAN CORPUSCULAR HEMOGLOBIN 30 PG (25-34); MEAN CORPUSCULAR HGB CONC 34 G/DL (32-36); MEAN CORPUSCULAR VOLUME 88 FL (80-99); MEAN PLATELET VOLUME 8.9 FL (7.4-10.4); MONOCYTES # (AUTO) 0.7 X 10^3 (0.0-1.0); MONOCYTES % (AUTO) 7 % (0-12); NEUTROPHILS # (AUTO) 5.2 X 10^3 (1.8-7.8); NEUTROPHILS % (AUTO) 54 % (42-75); PLATELET COUNT 322 10^3/uL (130-400); RED CELL DISTRIBUTION WIDTH 12.1 % (10.0-14.5); WHITE BLOOD COUNT 9.7 10^3/uL (4.3-11.0)
[2018-09-14 23:49] LABS: BACTERIA,URINE FEW /HPF; WBC,URINE RARE /HPF
[2018-09-14 23:59] LABS: ALANINE AMINOTRANSFERASE 23 U/L (0-55); ALKALINE PHOSPHATASE 76 U/L (40-136); AMYLASE 40 U/L (25-125); BILIRUBIN,TOTAL 0.4 MG/DL (0.1-1.0); BUN/CREATININE RATIO 11; CALCIUM 9.8 MG/DL (8.5-10.1); CARBON DIOXIDE 26 MMOL/L (21-32); CHLORIDE 105 MMOL/L (98-107); CREATININE SERUM 0.79 MG/DL (0.60-1.30); GFR ESTIMATED > 60; GLUCOSE 91 MG/DL (70-105); LIPASE 46 U/L (8-78); POTASSIUM 3.9 MMOL/L (3.6-5.0); SODIUM 141 MMOL/L (135-145); TOTAL PROTEIN 6.9 GM/DL (6.4-8.2)
[2018-09-15] MEDS ORDERED: NS 100 ML (IVPB) BAG IV ONE (01:15)
[2018-09-15] MEDS ORDERED: RECEIVED CONTRAST 20 ML VIAL IV SCH (01:15)
[2018-09-15] MEDS ORDERED: IOHEXOL 350 MG/ML 150 ML (OMNIPAQUE 350) VIAL IV ONE (01:15)
[2018-09-15] MEDS ORDERED: SUCR1TAB36 PO (01:24)
[2018-09-15] MEDS ORDERED: DICY20TA10 PO (01:24)
[2018-09-15] MEDS ORDERED: PANT40TA2 PO (01:24)
[2018-09-15] MEDS ORDERED: HYOS0.1283 SL (01:24)
--- NOTE | 2018-09-15 01:24 | ED Abdominal Pain ---
General Chief Complaint: Abdominal/GI Problems Stated Complaint: ABD PAIN Nursing Triage Note: luq abdominal pain x1 year. worse tonight Sepsis Screen: No Definite Risk Allergies and Home Medications Allergies Coded Allergies: Penicillins (Verified Allergy, Mild, 08/17/18) sulfamethoxazole (Verified Allergy, Mild, HIVES, 08/17/18) trimethoprim (Verified Allergy, Mild, HIVES, 08/17/18) Home Medications No Active Prescriptions or Reported Meds Past Paurmcv-Yppejv-Elhtpa Hx Patient Social History Alcohol Use: Denies Use Recreational Drug Use: No Smoking Status: Former Smoker Type Used: Cigarettes Former Smoker, Quit: Aug 17, 2014 2nd Hand Smoke Exposure: Yes Recent Foreign Travel: No Contact w/Someone Who Travel: No Recent Infectious Disease Expo: No Recent Hopitalizations: No Immunizations Up To Date Tetanus Booster (TDap): Unknown Seasonal Allergies Seasonal Allergies: No Past Medical History Surgeries: Yes (08/09 LEEP BX, 08/22 UPPER LOWER gi) Section, Gallbladder Respiratory: No Cardiac: Yes Palpitations Neurological: Yes Headaches /Migraines : No Reproductive Disorders: Yes (TAKES SPIRONOLACTONE TO "REGULATE HORMONES" ) Female Reproductive Disorders: Menstrual Problems 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 Sexually Transmitted Disease: Yes (hpv) HIV/AIDS: No Genitourinary: No Gastrointestinal: Yes Chronic Constipation Musculoskeletal: Yes Degenerate Disk Disease, Chronic Back Pain Endocrine: No HEENT: Yes (GLASSES) Loss of Vision: Bilateral Hearing Impairment: Denies Cancer: No Psychosocial: No Integumentary: No Blood Disorders: No Adverse Reaction/Blood Tranf: No (N/A) Family Medical History Heart Disease, Cancer, Diabetes Physical Exam Vital Signs Vital Signs - First Documented 09/14/18 23:08 Temp 98.0 Pulse 87 Resp 18 B/P (MAP) 132/82 (99) Pulse Ox 96 O2 Delivery Room Air Capillary Refill : Less Than 3 Seconds Height/Weight/BMI Height: 5'9.00" Weight: 200lbs. 0.0oz. [id number]; 33.0 BMI Method:Stated Progress/Results/Core Measures Results/Orders Lab Results Laboratory Tests Test 09/14/18 23:19 09/14/18 23:30 09/15/18 00:06 Range/Units Urine Color YELLOW Urine Clarity CLEAR Urine pH 6.5 5-9 Urine Specific [place] 1.010 L 1.016-1.022 Urine Protein NEGATIVE NEGATIVE Urine Glucose (UA) NEGATIVE NEGATIVE Urine Ketones NEGATIVE NEGATIVE Urine Nitrite NEGATIVE NEGATIVE Urine Bilirubin NEGATIVE NEGATIVE Urine Urobilinogen NORMAL NORMAL MG/DL Urine Leukocyte Esterase 1+ H NEGATIVE Urine RBC (Auto) 1+ H NEGATIVE Urine RBC NONE /HPF Urine WBC RARE /HPF Urine Squamous Epithelial Cells 2-5 /HPF Urine Crystals NONE /LPF Urine Bacteria FEW H /HPF Urine Casts NONE /LPF Urine Mucus NEGATIVE /LPF Urine Culture Indicated NO White Blood Count 9.7 4.3-11.0 10^3/uL Red Blood Count 4.72 4.35-5.85 10^6/uL Hemoglobin 14.2 11.5-16.0 G/DL Hematocrit 41 35-52 % Mean Corpuscular Volume 88 80-99 FL Mean Corpuscular Hemoglobin 30 25-34 PG Mean Corpuscular Hemoglobin Concent 34 32-36 G/DL Red Cell Distribution Width 12.1 10.0-14.5 % Platelet Count 322 130-400 10^3/uL Mean Platelet Volume 8.9 7.4-10.4 FL Neutrophils (%) (Auto) 54 42-75 % Lymphocytes (%) (Auto) 37 12-44 % Monocytes (%) (Auto) 7 0-12 % Eosinophils (%) (Auto) 2 0-10 % Basophils (%) (Auto) 1 0-10 % Neutrophils # (Auto) 5.2 1.8-7.8 X 10^3 Lymphocytes # (Auto) 3.5 1.0-4.0 X 10^3 Monocytes # (Auto) 0.7 0.0-1.0 X 10^3 Eosinophils # (Auto) 0.2 0.0-0.3 10^3/uL Basophils # (Auto) 0.1 0.0-0.1 10^3/uL Sodium Level 141 135-145 MMOL/L Potassium Level 3.9 3.6-5.0 MMOL/L Chloride Level 105 98-107 MMOL/L Carbon Dioxide Level 26 21-32 MMOL/L Anion Gap 10 5-14 MMOL/L Blood Urea Nitrogen 9 7-18 MG/DL Creatinine 0.79 0.60-1.30 MG/DL Estimat Glomerular Filtration Rate > 60 BUN/Creatinine Ratio 11 Glucose Level 91 70-105 MG/DL Calcium Level 9.8 8.5-10.1 MG/DL Corrected Calcium 9.8 8.5-10.1 MG/DL Total Bilirubin 0.4 0.1-1.0 MG/DL Aspartate Amino Transf (AST/SGOT) 20 5-34 U/L Alanine Aminotransferase (ALT/SGPT) 23 0-55 U/L Alkaline Phosphatase 76 40-136 U/L Total Protein 6.9 6.4-8.2 GM/DL Albumin 4.0 3.2-4.5 GM/DL Amylase Level 40 25-125 U/L Lipase 46 8-78 U/L Urine Test NEGATIVE NEGATIVE My Orders Orders - LONNIE LUTZ DO Saline Lock/Iv-Start (09/14/18 23:22) Urine Bedside (09/14/18 23:22) Amylase (09/14/18 23:22) Cbc With Automated Diff (09/14/18 23:22) Comprehensive Metabolic Panel (09/14/18 23:22) Lipase (09/14/18 23:22) Ua Culture If Indicated (09/14/18 23:22) Ct Mindy Chest/Noang Abd-Pelv W (09/15/18 00:03) Acute Abd Series (09/15/18 00:03) Hcg,Qualitative Urine (09/15/18 00:06) Iohexol Injection (Omnipaque 350 Mg/Ml 1 (09/15/18 01:15) Contrast Received (Contrast Received) (09/15/18 01:15) Ns (Ivpb) (Sodium Chloride 0.9% Ivpb Bag (09/15/18 01:15) Ketorolac Injection (Toradol Injection) (09/15/18 01:30) Hyoscyamine Sl Tablet (Levsin Sl Tablet) (09/15/18 01:30) Pantoprazole Tablet (Protonix Tablet) (09/15/18 01:30) Medications Given in ED Current Medications Medications Dose Ordered Sig/Jacklyn Route Start Time Stop Time Status Last Admin Dose Admin Iohexol 150 ml ONCE ONCE IV 09/15/18 01:15 09/15/18 01:16 DC 09/15/18 01:06 125 ML Sodium Chloride 100 ml ONCE ONCE IV 09/15/18 01:15 09/15/18 01:16 DC 09/15/18 01:07 80 ML Vital Signs/I&O 09/14/18 23:08 Temp 98.0 Pulse 87 Resp 18 B/P (MAP) 132/82 (99) Pulse Ox 96 O2 Delivery Room Air Blood Pressure Mean: 99 Departure Impression Primary Impression: Chronic left upper quadrant pain Disposition: HOME, SELF-CARE Condition: Stable Departure-Patient Inst. Referrals: MARISEL IVY MD (PCP/Family) Primary Care Physician Patient Instructions: Acute Abdomen (Belly Pain), Adult (DC) Add. Discharge Instructions: CLEAR LIQUIDS--WATER, BROTH, JELLO, GATORADE BRATS DIET--BANANAS, RICE, APPLESAUCE, TOAST, SALTINES FOLLOW UP WITH DR. IVY NEXT WEEK FOR FURTHER CARE All discharge instructions reviewed with patient and/or family. Voiced understanding. Scripts Dicyclomine HCl (Dicyclomine HCl) 20 Mg Tablet 20 MG PO Q6H for Abdominal Pain, #20 TAB Prov: LONNIE LUTZ DO 09/15/18 Hyoscyamine Sulfate (Levsin-Sl) 0.125 Mg Tab.subl 1-2 TAB SL Q4H for Abdominal Pain, #15 TAB Prov: LONNIE LUTZ DO 09/15/18 Sucralfate (Carafate) 1 Gm Tablet 1 GM PO QIDACHS, #60 TAB Prov: LONNIE LUTZ DO 09/15/18 Pantoprazole Sodium (Protonix) 40 Mg Tablet.dr 40 MG PO DAILY, #15 TAB Prov: LONNIE LUTZ DO 09/15/18 LONNIE LUTZ DO Sep 15, 2018 01:24
[2018-09-15] MEDS ORDERED: PANTOPRAZOLE 40 MG (PROTONIX) TAB PO ONE (01:30)
[2018-09-15] MEDS ORDERED: HYOSCYAMINE 0.125 MG (LEVSIN) TAB PO ONE (01:30)
[2018-09-15] MEDS ORDERED: KETOROLAC 30 MG/ML VIAL IVP ONE (01:30)
[2018-09-15 01:54] VITALS: BP 120/79
--- NOTE | 2018-09-15 07:45 | Diagnostic Imaging Report ---
INDICATION: Left upper quadrant pain. Comparison with CT scan of 07/23/2018. Findings: The lungs are clear. Upright and supine abdomen show no air-fluid levels. There is normal stool and gas pattern throughout the colon without evidence of constipation. There are surgical clips in the biliary fossa. IUD is present in the pelvis in the midline. No pathologic calcification. No bony abnormality. IMPRESSION: Normal abdomen series. Dictated by: Dictated on workstation # [id number]
--- NOTE | 2018-09-15 09:04 | Diagnostic Imaging Report ---
EXAMINATION: CTA of the chest, abdomen, and pelvis with contrast INDICATION: Left upper quadrant pain Contiguous axial sections were taken through the chest, abdomen, and pelvis following administration of intravenous contrast. Sagittal and coronal reconstructed images were also performed. MIP images were obtained as well. The CT abdomen/pelvis exam failed to show any sign of an acute abnormality. On this exam, the images through the thorax show that the heart size is within normal limits. There are no coronary artery calcifications evident. The aorta is not abnormally dilated and there is no sign of a dissection. There is no defect within the pulmonary arteries to indicate pulmonary embolus either. There is no obvious breast mass. The sections through the upper abdomen show that the liver is homogeneous and not enlarged. The spleen, pancreas, adrenals, kidneys, aorta and inferior vena cava show no sign of an acute abnormality. As noted on the prior exam, the gallbladder is surgically absent. The stomach is not well-distended and consequently difficult to assess. There are a few fluid-filled segments of small bowel in the left mid abdomen. These are somewhat more conspicuous on the prior exam. These findings are nonspecific but could be related to a mild ileus perhaps secondary to enteritis. Clinical followup is recommended. There is no pelvic mass or free fluid collection noted. As seen on the prior exam, there is an IUD within the uterus. The IUD seems to be in good position. Adjacent to the uterine cornu there is now a 1.9 CM rounded area of low density. I suspect that this is a small ovarian cyst which has developed in the interval since the prior study. If further study is desired, then ultrasound would be recommended. There is no clear evidence for diverticulosis of the sigmoid colon. The appendix was visualized and is not abnormally thickened. The bone windows show no evidence for a fracture or for a destructive lesion. IMPRESSION: 1. The fluid-filled segments of small bowel in the left midabdomen are nonspecific. The possibility that these are related to a mild ileus secondary to enteritis should be considered, however. 2. There now appears to be a small cyst associated with the left ovary. If further study is desired, then ultrasound would be recommended. 3. There is no acute abnormality of the abdomen and pelvis noted otherwise. Dictated by: Dictated on workstation # [id number]
--- OUTSIDE RECORDS SUMMARY | 2018-09-17 05:37 | XMS REPORT | Continuity of Care Document ---
Author Author [facility] Organization [facility] Address Unknown Phone Unavailable Allergies Active Description Code Type Severity Reaction Onset Reported/Identified Relationship to Patient Clinical Status Yes sulfamethoxazole [id number] Drug Allergy Unknown N/A 05/29/2016 Yes trimethoprim [id number] Drug Allergy Unknown N/A 05/29/2016 Yes Penicillins [id number] Drug Allergy Mild N/A 08/17/2018 Yes sulfamethoxazole [id number] Drug Allergy Mild HIVES 08/17/2018 Yes trimethoprim [id number] Drug Allergy Mild HIVES 08/17/2018 Medications There is no data. Problems Date Dx Coded Attending Type Code Diagnosis Diagnosed By 09/04/2012 Ot 786.50 CHEST PAIN NOS 09/04/2012 Ot 786.59 CHEST PAIN NEC 09/04/2012 Ot 790.99 BLOOD EXAM - OT NONSPECIFIC FINDINGS 11/01/2012 Ot 789.00 ABDOMINAL PAIN, UNSPECIFIED SITE 05/07/2013 GERBER LAWSON IRRIGATION SUPERVISOR Ot 892.0 OPEN WOUND OF FOOT 05/07/2013 GERBER LASWON IRRIGATION SUPERVISOR Ot E000.8 OTHER EXTERNAL CAUSE STATUS 05/07/2013 GERBER LAWSON IRRIGATION SUPERVISOR Ot E849.0 ACCIDENT IN HOME 05/07/2013 GERBER LAWSON IRRIGATION SUPERVISOR Ot E920.4 ACCID-OTHER HAND TOOLS 05/07/2013 GERBER LAWSON IRRIGATION SUPERVISOR Ot V06.1 [id number], COMBINED [ 03/11/2014 LONNIE LUTZ DO Ot [...] APRN Ot R00.2 PALPITATIONS 04/01/2018 GERBER LAWSON IRRIGATION SUPERVISOR Ot R07.89 OTHER CHEST PAIN 04/01/2018 GERBER [...] HISTORY OF NICOTINE DEPENDENCE 04/04/2018 GERBER LAWSON IRRIGATION SUPERVISOR Ot Z88.0 ALLERGY STATUS TO PENICILLIN 04/04/2018 GERBER LAWSON APRN Ot Z88.2 ALLERGY STATUS TO SULFONAMIDES STATUS 04/04/2018 GERBER LAWSON APRN Ot Z88.8 ALLERGY STATUS TO OTH DRUG/MEDS/BIOL SUB 04/04/2018 GERBER LAWSON IRRIGATION SUPERVISOR Ot Z97.5 PRESENCE OF (INTRAUTERINE) CONTRACEPTIVE 04/04/2018 GERBER LAWSON APRN Ot Z98.890 OTHER SPECIFIED POSTPROCEDURAL STATES 04/04/2018 GERBER LAWSON APRN Ot R00.0 TACHYCARDIA, UNSPECIFIED 04/04/2018 GERBER LAWSON IRRIGATION SUPERVISOR Ot R00.2 PALPITATIONS 04/04/2018 GERBER LAWSON APRN [...] R10.12 LEFT UPPER QUADRANT PAIN 08/16/2018 Justin CASTLILO MD Ot M79.89 OTHER SPECIFIED SOFT TISSUE [...] MD Ot R06.02 SHORTNESS OF BREATH 08/18/2018 DENIS TAWANA HANCOCK Ot Z01.818 ENCOUNTER FOR OTHER PREPROCEDURAL EXAMIN 08/22/2018 TAWANA DENIS DO Ot I47.1 SUPRAVENTRICULAR TACHYCARDIA 08/22/2018 DENIS TAWANA HANCOCK Ot K59.00 CONSTIPATION, UNSPECIFIED 08/22/2018 DENIS TAWANA HANCOCK Ot K92.1 MELENA 08/22/2018 DENIS DOTAWANA Ot R10.12 LEFT UPPER QUADRANT PAIN 08/22/2018 DENIS TAWANA HANCOCK Ot R19.4 CHANGE IN BOWEL HABIT 08/25/2018 MICHAEL MCCLURE MD Ot G43.909 MIGRAINE, UNSP, NOT INTRACTABLE, WITHOUT 08/25/2018 MICHAEL MCCLURE MD Ot J06.9 ACUTE UPPER RESPIRATORY INFECTION, UNSPE 08/25/2018 MICHAEL MCCLURE MD Ot R50.9 FEVER, UNSPECIFIED 08/25/2018 MICHAEL MCCLURE MD Ot Z82.49 FAMILY HX OF ISCHEM HEART DIS AND OTH DI 08/25/2018 MICHAEL MCCLURE MD Ot Z87.19 PERSONAL HISTORY OF OTHER DISEASES OF TH 08/25/2018 MICHAEL MCCLURE MD Ot Z87.891 PERSONAL HISTORY OF NICOTINE DEPENDENCE 08/25/2018 MICHAEL MCCLURE MD Ot Z88.0 ALLERGY STATUS TO PENICILLIN 08/25/2018 MICHAEL MCCLURE MD Ot Z88.2 ALLERGY STATUS TO SULFONAMIDES STATUS 08/25/2018 MICHAEL MCCLURE MD Ot Z88.8 ALLERGY STATUS TO OTH DRUG/MEDS/BIOL SUB 08/25/2018 MICHAEL MCCLURE MD Ot Z97.5 PRESENCE OF (INTRAUTERINE) CONTRACEPTIVE 08/25/2018 MICHAEL MCCLURE MD Ot Z98.890 OTHER SPECIFIED POSTPROCEDURAL STATES 08/28/2018 MICHAEL MCCLURE MD Ot G43.909 MIGRAINE, UNSP, NOT INTRACTABLE, WITHOUT 08/28/2018 MICHAEL MCCLURE MD, Ot J06.9 ACUTE UPPER RESPIRATORY INFECTION, UNSPE 08/28/2018 MICHAEL MCCLURE MD, Ot R50.9 FEVER, UNSPECIFIED 08/28/2018 MICHAEL MCCLURE MD Ot Z82.49 FAMILY HX OF ISCHEM HEART DIS AND OTH DI 08/28/2018 MICHAEL MCCLURE MD Ot Z87.19 PERSONAL HISTORY OF OTHER DISEASES OF TH 08/28/2018 MICHAEL MCCLURE MD, Ot Z87.891 PERSONAL HISTORY OF NICOTINE DEPENDENCE 08/28/2018 MICHAEL MCCLURE MD, Ot Z88.0 ALLERGY STATUS TO PENICILLIN 08/28/2018 MICHAEL MCCLURE MD, Ot Z88.2 ALLERGY STATUS TO SULFONAMIDES STATUS 08/28/2018 MICHAEL MCCLURE MD, Ot Z88.8 ALLERGY STATUS TO OT DRUG/MEDS/BIOL SUB 08/28/2018 MICHALE MCCLURE MD Ot Z97.5 PRESENCE OF (INTRAUTERINE) CONTRACEPTIVE 08/28/2018 MICHAEL MCCLURE MD Ot Z98.890 OTHER SPECIFIED POSTPROCEDURAL STATES 08/29/2018 TAWANA DENIS DO Ot I47.1 SUPRAVENTRICULAR TACHYCARDIA 08/29/2018 TAWANA DENIS DO Ot K59.00 CONSTIPATION, UNSPECIFIED 08/29/2018 TAWANA DENIS DO Ot K92.1 MELENA 08/29/2018 TAWANA DENIS DO Ot R10.12 LEFT UPPER QUADRANT PAIN 08/29/2018 TAWANA DENIS DO Ot R19.4 CHANGE IN BOWEL HABIT 09/04/2018 JULIANNE MUNIZ Ot N39.0 URINARY TRACT INFECTION, SITE NOT SPECIF 09/04/2018 JULIANNE MUNIZ Ot R31.9 HEMATURIA, UNSPECIFIED 09/08/2018 JULIANNE MUNIZ Ot N39.0 URINARY TRACT INFECTION, SITE NOT SPECIF 09/08/2018 JULIANNE MUNIZ Ot R31.9 HEMATURIA, UNSPECIFIED Procedures There is no data. Results Test [...] culture - 11/19/17 10:30 Bacterial urine culture [id number] NRG COLONY COUNT >100,000/ML NRG FTX;REPORTABLE SENSITIVITY REPORTED AT 1623, 5-[address] [facility] Bacterial susceptibility panel - 11/19/17 10:30 Gentamicin [...] susceptibility test by minimum inhibitory concentration - [facility] Complete blood count (CBC) with automated white [...] human chorionic gonadotropin (hCG) measurement NEGATIVE NEGATIVE Influenza virus A and B antigen detection - 08/25/18 19:03 FLU RESULT NEGATIVE FOR INFLUENZA A AND B ANTIGENS BY IA [facility] Bacterial urine culture - 09/02/18 17:15 Bacterial urine culture [id number] NRG COLONY COUNT <10,000 NRG FTX;REPORTABLE AMENDED REPORT RCD FROM [facility] 09/04 1 NRG FREE TEXT ENTRY 2 15:05 NRG Complete urinalysis with reflex to culture - 09/14/18 23:19 Urine color determination YELLOW NRG Urine clarity determination CLEAR NRG Urine pH measurement by test strip 6.5 5-9 Specific gravity of urine by test strip 1.010 1.016- 1.022 Urine protein assay by test strip, semi-quantitative NEGATIVE NEGATIVE Urine glucose detection by automated test strip NEGATIVE NEGATIVE Erythrocytes detection in urine sediment by light microscopy 1+ NEGATIVE Urine ketones detection by automated test strip NEGATIVE NEGATIVE Urine nitrite detection by test strip NEGATIVE NEGATIVE Urine total bilirubin detection by test strip NEGATIVE NEGATIVE Urine urobilinogen measurement by automated test strip (mass/volume) NORMAL NORMAL Urine leukocyte esterase detection by dipstick 1+ NEGATIVE Automated urine sediment erythrocyte count by [...] automated white blood cell (WBC) differential - 09/14/18 23:30 Blood leukocytes automated count (number/volume) 9.7 10*3/uL 4.3-11.0 Blood erythrocytes automated count (number/volume) 4.72 10*6/uL 4.35-5.85 Venous blood hemoglobin measurement (mass/volume) 14.2 g/dL 11.5-16.0 Blood hematocrit (volume fraction) 41 % 35-52 Automated erythrocyte mean corpuscular volume 88 [foz_us] 80-99 Automated erythrocyte mean corpuscular hemoglobin (mass per erythrocyte) 30 pg 25-34 Automated erythrocyte mean corpuscular hemoglobin concentration measurement ( mass/volume) 34 g/dL 32-36 Automated erythrocyte distribution width ratio 12.1 % 10.0-14.5 Automated blood platelet count (count/volume) 322 10*3/uL 130-400 Automated blood platelet mean volume measurement 8.9 [foz_us] 7.4-10.4 Automated blood neutrophils/100 leukocytes 54 % 42-75 Automated blood lymphocytes/100 leukocytes 37 % 12-44 Blood monocytes/100 leukocytes 7 % 0-12 Automated blood eosinophils/100 leukocytes 2 % 0-10 Automated blood basophils/100 leukocytes 1 % 0-10 Blood neutrophils automated count (number/volume) 5.2 10*3 1.8-7.8 Blood lymphocytes automated count (number/volume) 3.5 10*3 1.0-4.0 Blood monocytes automated count (number/volume) 0.7 10*3 0.0-1.0 Automated eosinophil count 0.2 10*3/uL 0.0-0.3 Automated blood basophil count (count/volume) 0.1 10*3/uL 0.0-0.1 Comprehensive metabolic panel - 09/14/18 23:30 Serum or plasma sodium measurement (moles/volume) 141 mmol/L 135-145 Serum or plasma potassium measurement (moles/volume) 3.9 mmol/L 3.6-5.0 Serum or plasma chloride measurement (moles/volume) 105 mmol/L 98-107 Carbon dioxide 26 mmol/L 21-32 Serum or plasma anion gap determination (moles/volume) 10 mmol/L 5-14 Serum or plasma urea nitrogen measurement (mass/volume) 9 mg/dL 7-18 Serum or plasma creatinine measurement (mass/volume) 0.79 mg/dL 0.60-1.30 Serum or plasma urea nitrogen/creatinine mass ratio 11 NRG Serum or plasma creatinine measurement with calculation of estimated glomerular filtration rate > NRG Serum or plasma glucose measurement (mass/volume) 91 mg/dL 70-105 Serum or plasma calcium measurement (mass/volume) 9.8 mg/dL 8.5-10.1 Serum or plasma total bilirubin measurement (mass/volume) 0.4 mg/dL 0.1-1.0 Serum or plasma alkaline phosphatase measurement (enzymatic activity/volume) 76 U/L 40-136 Serum or plasma aspartate aminotransferase measurement (enzymatic activity/ volume) 20 U/L 5-34 Serum or plasma alanine aminotransferase measurement (enzymatic activity/volume ) 23 U/L 0-55 Serum or plasma protein measurement (mass/volume) 6.9 g/dL 6.4-8.2 Serum or plasma albumin measurement (mass/volume) 4.0 g/dL 3.2-4.5 CALCIUM CORRECTED 9.8 mg/dL 8.5-10.1 Serum or plasma amylase measurement (enzymatic activity/volume) - 09/14/18 23: 30 Serum or plasma amylase measurement (enzymatic activity/volume) 40 U /L 25-125 Lipase - 09/14/18 23:30 Lipase 46 U/L 8-78 Urine beta human chorionic gonadotropin (hCG) measurement - 09/15/18 00:06 Urine beta human chorionic gonadotropin (hCG) measurement NEGATIVE NEGATIVE Encounters ACCT No. Visit Date/Time Discharge Status Pt. Type Provider Facility Loc./Unit Complaint [id number] 09/14/2018 22:39:00 09/15/2018 01:54:00 DIS Emergency LONNIE LUTZ DO [facility] ER ABD PAIN [id number] 09/12/2018 16:36:00 09/12/2018 23:59:59 CLS Preadmit MARISEL IVY MD [facility] CARD ACQUIRED DEFORMITY OF CHEST AND RIB [id number] 09/02/2018 17:14:00 09/02/2018 23:59:59 CLS Outpatient JULIANNE MUNIZ [facility] LABNPT URINE CULTURE [id number] 08/25/2018 16:56:00 08/25/2018 19:46:00 DIS Emergency MICHAEL MCCLURE MD [facility] ER FEVER [id number] 08/22/2018 07:36:00 08/22/2018 10:14:00 DIS Outpatient TAWANA DENIS DO [facility] ENDO CHANGE IN STOOLS/ CONSTIPATION/LUQ ABD PAIN [id number] 08/17/2018 11:00:00 08/17/2018 23:59:59 CLS Preadmit Justin CASTILLO MD [facility] CARD PALPITATIONS [id number] 08/17/2018 09:00:00 08/17/2018 10:16:00 DIS Outpatient TAWANA DENIS DO [facility] PREOP COLONOSCOPY/EGD [id number] 06/15/2018 09:51:00 08/16/2018 00:01:00 DIS Outpatient Justin CASTILLO MD [facility] CARD PALPITATIONS [id number] 08/02/2018 10:26:00 08/02/2018 23:59:59 CLS Outpatient CATA JOHNSTON, MARISEL Pereira [facility] RAD LUQ PAIN [id number] 07/27/2018 13:01:00 07/27/2018 23:59:59 CLS Outpatient JULIANNE MUNIZ [employer]RECTIONAL OFFICER CAPTAIN [facility] LAB R10.12 [id number] 05/18/2018 09:35:00 05/18/2018 23:59:59 CLS Outpatient Justin CASTILLO MD [facility] CARD PALPITATIONS [id number] 04/25/2018 11:28:00 04/25/2018 23:59:59 CLS Outpatient JONATHAN JOHNSTON, Justin KINSEY [facility] CARD PALPITATIONS [id number] 04/01/2018 15:53:00 04/01/2018 18:46:00 DIS Emergency GERBER LAWSON APRN [facility] ER CHEST PAIN/SOB [id number] 11/19/2017 10:16:00 11/19/2017 13:51:00 DIS Emergency MICHAEL MCCLURE MD [facility] ER URINATING BLOOD [id number] 11/15/2017 07:28:00 11/15/2017 23:59:59 CLS Preadmit ERROL ROMANO [employer]RECTIONAL OFFICER CAPTAIN [facility] RAD BILAT LOWER PELVIC PAIN [id number] 08/09/2017 15:22:00 08/09/2017 23:59:59 CLS Preadmit ERROL ROMANO [employer]RECTIONAL OFFICER CAPTAIN [facility] RAD LLQ PAIN [id number] 03/14/2017 10:02:00 03/14/2017 23:59:59 CLS Preadmit CARMEN BARKER MD [facility] RAD Z34.80 NORMAL [id number] 11/22/2016 10:15:00 11/22/2016 23:59:59 CLS Preadmit DAYSI RUSS MD [facility] RAD H/O UTI [id number] 10/30/2016 22:59:00 10/31/2016 00:20:00 DIS Emergency MICHAEL MCCLURE MD [facility] ER LEFT THUMB LACERATION [id number] 08/03/2016 18:00:00 08/03/2016 22:43:00 DIS Emergency LONNIE LUTZ DO [facility] ER ABD PAIN,NAUSEA [id number] 05/29/2016 18:21:00 05/29/2016 19:56:00 DIS Emergency GARRETT PURVIS MD [facility] ER POSS ALLERGIC REACTION , SHAKING AND FACE SWELLING [id number] 11/25/2015 11:01:00 11/25/2015 23:59:59 CLS Outpatient MARISEL IVY MD [facility] RAD DYSPNEA,TIGHTNESS [id number] 08/07/2015 09:29:00 09/24/2015 10:21:00 DIS Outpatient MARISEL IVY MD [facility] REHAB BACK PAIN WITH RADICULOPATHY [id number] 07/22/2015 08:30:00 07/23/2015 00:01:00 DIS Outpatient MARISEL IVY MD [facility] REHAB BACK PAIN WITH RADICULOPATHY [id number] 06/20/2014 10:39:00 06/20/2014 13:28:00 DIS Emergency GARRETT PURVIS MD [facility] ER CHEST PAIN [id number] 06/04/2014 09:35:00 06/04/2014 23:59:59 CLS Outpatient MARISEL IVY MD [facility] LAB HLP [id number] 03/11/2014 15:49:00 03/11/2014 17:59:00 DIS Emergency LONNIE LUTZ DO [facility] ER ARM AND CHEST PAIN [id number] 01/17/2014 12:52:00 01/17/2014 23:59:59 CLS Outpatient MARISEL IVY MD [facility] RAD PAIN UPPER L SPINE W/ BUMP [id number] 01/14/2014 14:19:00 01/14/2014 23:59:59 CLS Outpatient MARISEL IVY MD [facility] RAD PAIN UPPER L SPINE W/ BUMP [id number] 12/04/2013 09:49:00 12/04/2013 23:59:59 CLS Outpatient MARISEL IVY MD [facility] LAB HYPOTHYROIDISM [id number] 08/13/2013 10:47:00 08/13/2013 23:59:59 CLS Outpatient GERI PINEDA DO S [facility] RAD [id number] 06/06/2013 14:43:00 06/06/2013 23:59:59 CLS Outpatient MARISEL IVY MD [facility] RAD NUMBNESS RT ARM,PAIN RT SHOULDER [id number] 06/06/2013 11:08:00 06/06/2013 23:59:59 CLS Outpatient GERI PINEDA DO [facility] RAD PELVIC PAIN [id number] 06/04/2013 15:12:00 06/04/2013 23:59:59 CLS Outpatient MARISEL IVY MD [facility] RAD PAIN AND NUMBNESS RUE [id number] 05/24/2013 11:12:00 05/24/2013 23:59:59 CLS Outpatient MARISEL IVY MD [facility] RAD BILATERAL SHOULDER PAIN, [id number] 05/07/2013 19:36:00 05/07/2013 20:26:00 DIS Emergency GERBER LAWSON IRRIGATION SUPERVISOR [facility] ER POSS FOREIGN OBJECT IN L FOOT [id number] 09/05/2014 15:24:00 Document Registration [id number] 11/01/2012 03:01:00 Document Registration [id number] 09/03/2012 23:09:00 Document Registration [id number] 09/01/2012 08:07:00 Document Registration
== END 2018-09-15 01:54 | disposition home or self-care (01) ==
LOC: EDUNIT# 22:38 → ER 22:39
DX: R10.12 Left upper quadrant pain (principal); G89.29 Other chronic pain; G43.909 Migraine, unspecified, not intractable, without status migrainosus; Z82.49 Family history of ischemic heart disease and other diseases of the circulatory system; Z97.5 Presence of (intrauterine) contraceptive device; Z87.19 Personal history of other diseases of the digestive system; Z88.0 Allergy status to penicillin; Z88.2 Allergy status to sulfonamides; Z88.8 Allergy status to other drugs, medicaments and biological substances; Z87.891 Personal history of nicotine dependence; Z98.890 Other specified postprocedural states
CPT/HCPCS: 36415; 71275; 74022; 74177; 80053; 81000; 82150; 83690; 84703; 85025; 96374

== ENCOUNTER → 2018-11-17 | Outpatient (CLI) | payer BC ==
[~2018-11-17] MED LIST changes: +DICY20TA10 PO; +HYOS0.1283 SL; +SUCR1TAB36 PO
--- NOTE | 2018-11-17 09:21 | Diagnostic Imaging Report ---
CLINICAL INDICATION: Patient with thyromegaly. COMPARISONS: None. FINDINGS: THYROID NODULES: None. THYROID GLAND: The thyroid gland has normal size, shape and echogenicity. The right lobe measures 5.2 cm x 1.5 cm x 1.9 cm and the left lobe measures 4.5 cm x 1.9 cm x 1.6 cm in their three dimensions. ISTHMUS: The isthmus is unremarkable and measures 3.7 mm in thickness. IMPRESSION: Unremarkable thyroid ultrasound exam. Dictated by: Dictated on workstation # [id number]
== END ==
LOC: RAD 07:42
PROVIDERS: ATTEND Nurse Practitioner Family
DX: E01.0 Iodine-deficiency related diffuse (endemic) goiter (principal)
CPT/HCPCS: 76536

== ENCOUNTER → 2019-03-08 | Outpatient (CLI) | payer BC, OTHER ==
--- NOTE | 2019-03-08 18:42 | Diagnostic Imaging Report ---
PROCEDURE: MR imaging cervical spine without contrast. INDICATION: DDD. TECHNIQUE: Imaging of the cervical spine was performed without contrast. FINDINGS: There is some straightening of the normal cervical lordosis. The vertebral body heights are well-maintained. The prevertebral soft tissues are within normal limits. Posterior fossa is unremarkable. Visualized portions of the spinal cord are normal in signal intensity and morphology. C2-C3 is unremarkable. At C3-C4 there is some mild ridging of the left uncovertebral joint hypertrophy with mild left neural foraminal encroachment. At C4-C5 there is no significant spinal or neural foraminal encroachment. At C5-C6 there is broad-based annular bulging and moderate bilateral uncovertebral joint hypertrophy. There is moderate spinal stenosis with a least moderate bilateral neural foraminal encroachment. At C6-C7 there is some minimal annular bulging and some ridging of the left uncovertebral joint hypertrophy. There is slight effacement of the ventral thecal sac and mild left neural foraminal encroachment. C7-T1 is unremarkable. IMPRESSION: Mild cervical spondylosis and degenerative disc disease as detailed above. Dictated by: Dictated on workstation # [id number]
== END ==
LOC: RAD 09:06
PROVIDERS: ATTEND Nurse Practitioner Family
DX: M50.10 Cervical disc disorder with radiculopathy, unspecified cervical region (principal); M47.22 Other spondylosis with radiculopathy, cervical region; M50.122 Cervical disc disorder at C5-C6 level with radiculopathy; M48.02 Spinal stenosis, cervical region
CPT/HCPCS: 72141

== ENCOUNTER 2019-04-20 10:50 | Emergency (ER) | payer BC ==
[~2019-04-20] VITALS: Ht 170.1 cm; Wt 113.6 kg
--- NOTE | 2019-04-20 11:53 | ED Headache ---
General Chief Complaint: Head/Cervical Problems Stated Complaint: HEAD PRESSURE;FACIAL NUMBNESS Nursing Triage Note: PT AMB TO TRIAGE WITH COMPLAINT OF HEAD PRESSURE FOR TWO WEEKS. STATES SHE ALSO HAS TONGUE NUMBNESS AND FACIAL NUMBNESS. STATES SHE IS SCHEDULED TO HAVE A CAROTID DOPPLER ON TUESDAY. STATES SHE HAS BULGING CERVIVAL DISC. Nursing Sepsis Screen: No Definite Risk Source: patient Exam Limitations: no limitations History of Present Illness Date Seen by Provider: Apr 20, 2019 Time Seen by Provider: 11:50 Initial Comments To ER with reports of pressure in her head and numbness from the level of the eyes and superior to that. It affects both sides. She has pain in her scalp and the top of her head described as a pressure. She occasionally has some tongue numbness. She often has right arm and sometimes left arm numbness. She had a cervical MRI done on 03/08/19 found to have few areas of bulging disc, she's been seeing physical therapy. She mentioned the dizziness that she's also been having to the physical therapist to turn her head to one side and then she got more dizzy, concern for carotid stenosis so she has an appointment in 3 days to have her carotid ultrasound. However headache was present today, she is very anxious and decided to come to the emergency room. Timing/Duration: 1 week Severity/Quality: moderate Location: occipital, parietal Prior Headaches/Recent Trauma: no recent headache/trauma Associated Symptoms: No confusion, No nausea/vomiting, No seizures, No stiff neck, No vision changes Allergies and Home Medications Allergies Coded Allergies: Penicillins (Verified Allergy, Mild, 08/17/18) sulfamethoxazole (Verified Allergy, Mild, HIVES, 08/17/18) trimethoprim (Verified Allergy, Mild, HIVES, 08/17/18) Home Medications Alprazolam 0.5 Mg Tablet, 0.5 MG PO BID PRN for ANXIETY Prescribed by: GERBER LAWSON on 04/20/19 1323 Dicyclomine HCl 20 Mg Tablet, 20 MG PO Q6H Prescribed by: LONNIE LUTZ on 09/15/18 0124 Hyoscyamine Sulfate 0.125 Mg Tab.subl, 1-2 TAB SL Q4H Prescribed by: LONNIE LUTZ on 09/15/18 0124 Pantoprazole Sodium 40 Mg Tablet.dr, 40 MG PO DAILY Prescribed by: LONNIE LUTZ on 3/1/19 0124 Sucralfate 1 Gm Tablet, 1 GM PO QIDACHS Prescribed by: LONNIE LUTZ on 09/15/18123 Patient Home Medication List Home Medication List Reviewed: Yes Review of Systems Review of Systems Constitutional: see HPI Eyes: No Symptoms Reported Ears, Nose, Mouth, Throat: no symptoms reported Respiratory: no symptoms reported Cardiovascular: no symptoms reported Genitourinary: no symptoms reported Musculoskeletal: no symptoms reported Skin: no symptoms reported Psychiatric/Neurological: See HPI, Headache Past Lscpaht-Suevmh-Xannyu Hx Patient Social History Alcohol Use: Denies Use Recreational Drug Use: No Smoking Status: Former Smoker Type Used: Cigarettes Former Smoker, Quit: Aug 17, 2014 2nd Hand Smoke Exposure: Yes Recent Foreign Travel: No Contact w/Someone Who Travel: No Recent Infectious Disease Expo: No Recent Hopitalizations: No Physical Abuse: No Sexual Abuse: No Mistreated: No Fear: No Immunizations Up To Date Tetanus Booster (TDap): Unknown Seasonal Allergies Seasonal Allergies: No Past Medical History Surgeries: Yes (08/09/18 LEEP BX, 08/22/18--NORMAL EGD/COLONOSCOPY) Section, Gallbladder Respiratory: No Cardiac: Yes Palpitations Neurological: Yes Headaches /Migraines Reproductive Disorders: Yes Female Reproductive Disorders: Menstrual Problems [employer] History: IUD Sexually Transmitted Disease: Yes (HPV) HIV/AIDS: No Genitourinary: No Gastrointestinal: Yes Chronic Constipation Musculoskeletal: Yes Degenerate Disk Disease, Chronic Back Pain Endocrine: No HEENT: Yes (GLASSES) Loss of Vision: Bilateral Hearing Impairment: Denies Cancer: No Psychosocial: No Integumentary: No Blood Disorders: No Adverse Reaction/Blood Tranf: No (N/A) Family Medical History Heart Disease, Cancer, Diabetes Physical Exam Vital Signs Vital Signs - First Documented 04/20/19 11:13 Temp 37.2 Pulse 93 Resp 20 B/P (MAP) 122/81 (95) Pulse Ox 97 O2 Delivery Room Air Capillary Refill : Less Than 3 Seconds Height, Weight, BMI Height: 5'9.00" Weight: 200lbs. 0.0oz. [id number]; 39.00 BMI Method:Stated General Appearance: WD/WN, no apparent distress HEENT: PERRL/EOMI, normal ENT inspection Neck: non-tender, full range of motion Respiratory: no respiratory distress Gastrointestinal: normal bowel sounds, non tender Extremities: normal range of motion, non-tender Psychiatric: alert, oriented x 3 Crainal Nerves: normal hearing, normal speech, PERRL Skin: normal color, warm/dry Progress/Results/Core Measures Results/Orders My Orders Orders - GERBER LAWSON APRN Us Carotid Yessy Complete [id number] (04/20/19 11:47) Alprazolam Tablet (Xanax Tablet) (04/20/19 12:00) Vital Signs/I&O 04/20/19 11:13 Temp 37.2 Pulse 93 Resp 20 B/P (MAP) 122/81 (95) Pulse Ox 97 O2 Delivery Room Air Blood Pressure Mean: 95 Diagnostic Imaging Diagonstic Imaging: Ultrasound Comments NAME: ERROL RAMOS [facility] REC#: [id number] PT STATUS: REG ER : 1980 PHYSICIAN: GERBER LAWSON APRN ADMIT DATE: 04/20/19/ER Draft Date of Exam:04/20/19 US CAROTID YESSY COMPLETE [id number] PROCEDURE: US carotid duplex, bilateral. TECHNIQUE: Multiple real-time grayscale images were obtained over the carotid arteries in various projections, bilaterally. Additional spectral analysis and color Doppler duplex images were also obtained. INDICATION: Dizziness. COMPARISON: None. FINDINGS: The right common carotid artery demonstrates no significant atherosclerosis. There is atherosclerosis in the ECA without significant stenosis. No significant atherosclerosis is seen in the right ICA. Waveforms demonstrate brisk upstrokes. The vertebral artery is antegrade. On the left, there is no significant atherosclerosis or stenosis. Waveforms demonstrate brisk upstrokes. The vertebral artery is antegrade. Parameters based on the consensus panel Fair-Scale and Doppler ultrasound criteria published May 2003, Radiology, Volume 229. DOPPLER (peak systolic velocity M/S Right Left CCA .78 1.01 ICA Proximal .85 1.06 ICA Mid .58 .67 ICA Distal .87 .96 RATIO 1.08 1.05 ECA 1.21 1.11 VERT .43 .37 IMPRESSION: 1. No sonographic findings of hemodynamically significant stenosis in the bilateral carotid arteries. Dictated on workstation # [id number] Dict: 04/20/19 1231 Trans: 04/20/19 1237 [facility] [id number] Interpreted by: APRIL YORK MD Electronically signed by: Departure Communication (Admissions) tried a greater occipital nerve block without improvement in head pressure sensation. Her symptoms have been ongoing for several weeks, she has had 4 CT scans already and is concerned, appropriately, about radiation exposure. She talked to have an MRI scheduled instead. This certainly seems reasonable slight given her the outpatient order for that. Impression Primary Impression: Cervical radiculopathy due to intervertebral disc disorder Additional Impression: Anxiety Disposition: 01 HOME, SELF-CARE Condition: Stable Departure-Patient Inst. Decision time for Depature: 13:11 Referrals: TORRIE CHRISTINE DNP (PCP) Primary Care Physician Patient Instructions: Radiculopathy Scripts Alprazolam (Xanax) 0.5 Mg Tablet 0.5 MG PO BID PRN for ANXIETY, #10 TAB Prov: GERBER LAWSON APRN 04/20/19 Images Extremities-Lower 1 - Laceration Copy Copies To 1: ADILENE CHRISTINE PETER J APRN Apr 20, 2019 11:53
[2019-04-20] MEDS ORDERED: ALPRAZolam 0.5 MG (XANAX) TAB PO SCH (12:00)
--- NOTE | 2019-04-20 12:37 | Diagnostic Imaging Report ---
PROCEDURE: US carotid duplex, bilateral. TECHNIQUE: Multiple real-time grayscale images were obtained over the carotid arteries in various projections, bilaterally. Additional spectral analysis and color Doppler duplex images were also obtained. INDICATION: Dizziness. COMPARISON: None. FINDINGS: The right common carotid artery demonstrates no significant atherosclerosis. There is atherosclerosis in the ECA without significant stenosis. No significant atherosclerosis is seen in the right ICA. Waveforms demonstrate brisk upstrokes. The vertebral artery is antegrade. On the left, there is no significant atherosclerosis or stenosis. Waveforms demonstrate brisk upstrokes. The vertebral artery is antegrade. Parameters based on the consensus panel Fair-Scale and Doppler ultrasound criteria published May 2003, Radiology, Volume 229. DOPPLER (peak systolic velocity M/S Right Left CCA .78 1.01 ICA Proximal .85 1.06 ICA Mid .58 .67 ICA Distal .87 .96 RATIO 1.08 1.05 ECA 1.21 1.11 VERT .43 .37 IMPRESSION: 1. No sonographic findings of hemodynamically significant stenosis in the bilateral carotid arteries. Dictated by: Dictated on workstation # [id number]
[2019-04-20] MEDS ORDERED: ALPR0.5T PO (13:23)
[2019-04-20 13:52] VITALS: BP 122/81
== END 2019-04-20 13:52 | disposition home or self-care (01) ==
LOC: EDUNIT# 10:50 → ER 10:51
DX: M50.10 Cervical disc disorder with radiculopathy, unspecified cervical region (principal); F41.9 Anxiety disorder, unspecified; G43.909 Migraine, unspecified, not intractable, without status migrainosus; Z88.0 Allergy status to penicillin; Z88.2 Allergy status to sulfonamides; Z88.1 Allergy status to other antibiotic agents; Z87.39 Personal history of other diseases of the musculoskeletal system and connective tissue; Z77.22 Contact with and (suspected) exposure to environmental tobacco smoke (acute) (chronic); Z87.891 Personal history of nicotine dependence; Z82.49 Family history of ischemic heart disease and other diseases of the circulatory system
CPT/HCPCS: 93880

== ENCOUNTER → 2019-04-23 | Outpatient (CLI) | payer BC ==
[~2019-04-23] MED LIST changes: +ALPR0.5T PO
--- NOTE | 2019-04-23 14:09 | Diagnostic Imaging Report ---
INDICATION: Numbness in arms. Dizziness.. TECHNIQUE: Color and grayscale sonographic images and duplex Doppler evaluation of the arterial system of the bilateral upper extremities. FINDINGS: There is normal Doppler arterial waveforms noted within the visualized arteries of both upper extremities. No significant change in the overall velocity or findings to suggest stenosis. Relatively normal triphasic Doppler waveforms. No evidence to suggest arteriovenous fistula. No focal soft tissue fluid collection is present. IMPRESSION: Normal-appearing bilateral upper extremity arterial Doppler evaluation. Dictated by: Dictated on workstation # [id number]
== END ==
LOC: RAD 12:31
PROVIDERS: ATTEND Nurse Practitioner Family
DX: R42 Dizziness and giddiness (principal); R20.0 Anesthesia of skin
CPT/HCPCS: 93930

== ENCOUNTER → 2019-05-10 | Outpatient (CLI) | payer BC ==
--- NOTE | 2019-05-10 12:12 | Diagnostic Imaging Report ---
INDICATION: Sternal mass. Sonographic interrogation of the area of palpable abnormality in the midsternum was performed. No sonographic abnormality is seen. No solid or cystic mass is seen. IMPRESSION: No sonographic abnormality is detected. Dictated by: Dictated on workstation # [id number]
== END ==
LOC: RAD 11:06
PROVIDERS: ATTEND Nurse Practitioner Women's Health
DX: M89.9 Disorder of bone, unspecified (principal)
CPT/HCPCS: 76604

== ENCOUNTER → 2019-06-25 | Outpatient (CLI) | payer BC | LOC: LAB 15:20 | PROVIDERS: ATTEND Nurse Practitioner Family | DX: B37.2 Candidiasis of skin and nail (principal); K58.9 Irritable bowel syndrome, unspecified; K30 Functional dyspepsia | CPT/HCPCS: 36415; 82784; 86003 ==

== ENCOUNTER 2019-06-30 19:49 | Outpatient (CLI) | payer BC | END 2019-07-01 06:40 | disposition home or self-care (01) | LOC: SLEEP 19:49 | PROVIDERS: ATTEND Nurse Practitioner Family | DX: G47.33 Obstructive sleep apnea (adult) (pediatric) (principal); G47.00 Insomnia, unspecified; M50.13 Cervical disc disorder with radiculopathy, cervicothoracic region; M54.5 Low back pain; E28.2 Polycystic ovarian syndrome; R20.2 Paresthesia of skin | CPT/HCPCS: 95810 ==

== ENCOUNTER 2019-07-05 08:17 | Outpatient (RCR) | payer BC | END 2019-07-08 | disposition home or self-care (01) | PROVIDERS: ATTEND Nurse Practitioner Family | DX: M50.13 Cervical disc disorder with radiculopathy, cervicothoracic region (principal) ==

== ENCOUNTER → 2019-07-24 | Outpatient (CLI) | payer BC | LOC: RAD 15:30 | PROVIDERS: ATTEND Nurse Practitioner Family | DX: E28.2 Polycystic ovarian syndrome (principal); A69.20 Lyme disease, unspecified; R10.31 Right lower quadrant pain; R10.2 Pelvic and perineal pain; R73.03 Prediabetes ==

== ENCOUNTER → 2019-07-24 | Outpatient (CLI) | payer BC ==
[~2019-07-24] MED LIST changes: +HOLD METFORMIN - RECEIVED CONTRAST 20 ML VIAL IV SCH; +IOHEXOL 350 MG/ML 100 ML (OMNIPAQUE 350) VIAL IV ONE; +NS 100 ML (IVPB) BAG IV ONE
--- NOTE | 2019-07-24 16:43 | Diagnostic Imaging Report ---
PROCEDURE: CT abdomen and pelvis with and without contrast. TECHNIQUE: Precontrast acquisitions were acquired through the abdomen and pelvis. Multiple contiguous axial images were obtained through the abdomen and pelvis after the administration of intravenous contrast. Auto Exposure Controls were utilized during the CT exam to meet ALARA standards for radiation dose reduction. INDICATION: Right lower quadrant pain. COMPARISON: Correlation is made with prior CT from 09/15/2018. FINDINGS: The lung bases are clear. No discrete liver mass is detected. Gallbladder is surgically absent. No biliary ductal dilatation is seen. The pancreas and spleen are unremarkable. No adrenal mass is detected. Kidneys are unremarkable. There is no hydronephrosis. Aorta is nonaneurysmal. No central retroperitoneal or mesenteric lymphadenopathy is seen. The small and large bowel loops are normal in caliber. There is no obstruction. The appendix is unremarkable. No free fluid or fluid collection is identified. Imaging through the pelvis demonstrates an IUD within the uterus. No definite adnexal mass is detected. The bladder is unremarkable. No pelvic lymphadenopathy is detected. Bony structures are nonacute. IMPRESSION: Unremarkable CT of the abdomen and pelvis. No acute abnormality is identified. Dictated by: Dictated on workstation # [id number]
== END ==
LOC: RAD 15:53
PROVIDERS: ATTEND Nurse Practitioner Family
DX: E28.2 Polycystic ovarian syndrome (principal); A69.20 Lyme disease, unspecified; R73.03 Prediabetes; Z90.49 Acquired absence of other specified parts of digestive tract
CPT/HCPCS: 74178

== ENCOUNTER → 2019-07-30 | Outpatient (CLI) | payer BC ==
[~2019-07-30] MED LIST changes: -HOLD METFORMIN - RECEIVED CONTRAST 20 ML VIAL IV SCH; -IOHEXOL 350 MG/ML 100 ML (OMNIPAQUE 350) VIAL IV ONE; -NS 100 ML (IVPB) BAG IV ONE
[2019-07-30 15:36] LABS: BASOPHILS % (AUTO) 0 % (0-10); EOSINOPHILS # (AUTO) 0.1 10^3/uL (0.0-0.3); EOSINOPHILS % (AUTO) 1 % (0-10); HEMATOCRIT 45 % (35-52); HEMOGLOBIN 15.3 G/DL (11.5-16.0); LYMPHOCYTES # (AUTO) 3.2 X 10^3 (1.0-4.0); LYMPHOCYTES % (AUTO) 25 % (12-44); MEAN CORPUSCULAR HEMOGLOBIN 30 PG (25-34); MEAN CORPUSCULAR HGB CONC 34 G/DL (32-36); MEAN CORPUSCULAR VOLUME 87 FL (80-99); MONOCYTES # (AUTO) 0.7 X 10^3 (0.0-1.0); MONOCYTES % (AUTO) 6 % (0-12); NEUTROPHILS # (AUTO) 8.6 X 10^3 (1.8-7.8); NEUTROPHILS % (AUTO) 68 % (42-75); PLATELET COUNT 330 10^3/uL (130-400); RED CELL DISTRIBUTION WIDTH 12.2 % (10.0-14.5); WHITE BLOOD COUNT 12.7 10^3/uL (4.3-11.0)
[2019-07-30 15:56] LABS: ALANINE AMINOTRANSFERASE 25 U/L (0-55); ALBUMIN 4.3 GM/DL (3.2-4.5); ALKALINE PHOSPHATASE 112 U/L (40-136); AMYLASE 48 U/L (25-125); BILIRUBIN,TOTAL 0.4 MG/DL (0.1-1.0); BUN/CREATININE RATIO 13; CALCIUM 9.5 MG/DL (8.5-10.1); CARBON DIOXIDE 24 MMOL/L (21-32); CHLORIDE 105 MMOL/L (98-107); CREATININE SERUM 0.86 MG/DL (0.60-1.30); GFR ESTIMATED > 60; GLUCOSE 101 MG/DL (70-105); LIPASE 51 U/L (8-78); POTASSIUM 3.8 MMOL/L (3.6-5.0); SODIUM 138 MMOL/L (135-145); TOTAL PROTEIN 7.6 GM/DL (6.4-8.2)
--- NOTE | 2019-07-30 15:57 | Diagnostic Imaging Report ---
INDICATION: Pain in the dorsum of the foot which extends into the plantar aspect of the foot. TIME OF EXAM: 03:47 p.m. FINDINGS: Three views of the left foot were obtained. Metatarsals are unremarkable. Phalanges are unremarkable. Mid foot and hind foot are unremarkable. Alignment is normal. No fractures are seen. No plantar calcaneal spur is detected. IMPRESSION: No acute bony abnormality is detected. Dictated by: Dictated on workstation # [id number]
== END ==
LOC: LAB 15:16
PROVIDERS: ATTEND Nurse Practitioner Family
DX: D72.828 Other elevated white blood cell count (principal); M79.672 Pain in left foot
CPT/HCPCS: 36415; 73630; 80053; 82150; 83690; 85025

== ENCOUNTER 2019-09-20 15:51 | Outpatient (RCR) | payer BC, OTHER | END 2019-12-19 | disposition home or self-care (01) | LOC: DSME 15:51 | PROVIDERS: ATTEND Nurse Practitioner Family | DX: E11.9 Type 2 diabetes mellitus without complications (principal) ==

== ENCOUNTER 2019-09-28 08:00 | Outpatient (RCR) | payer BC, OTHER | END 2019-10-07 | disposition home or self-care (01) | PROVIDERS: ATTEND Nurse Practitioner Family | DX: M50.13 Cervical disc disorder with radiculopathy, cervicothoracic region (principal) ==

== ENCOUNTER → 2019-10-10 | Outpatient (CLI) | payer BC ==
[2019-10-10 16:36] LABS: BASOPHILS % (AUTO) 0 % (0-10); EOSINOPHILS # (AUTO) 0.1 10^3/uL (0.0-0.3); EOSINOPHILS % (AUTO) 1 % (0-10); HEMATOCRIT 44 % (35-52); HEMOGLOBIN 15.7 G/DL (11.5-16.0); LYMPHOCYTES # (AUTO) 2.6 X 10^3 (1.0-4.0); LYMPHOCYTES % (AUTO) 24 % (12-44); MEAN CORPUSCULAR HEMOGLOBIN 31 PG (25-34); MEAN CORPUSCULAR HGB CONC 36 G/DL (32-36); MEAN CORPUSCULAR VOLUME 85 FL (80-99); MEAN PLATELET VOLUME 9.3 FL (7.4-10.4); MONOCYTES # (AUTO) 0.6 X 10^3 (0.0-1.0); MONOCYTES % (AUTO) 5 % (0-12); NEUTROPHILS # (AUTO) 7.4 X 10^3 (1.8-7.8); NEUTROPHILS % (AUTO) 69 % (42-75); PLATELET COUNT 327 10^3/uL (130-400); RED CELL DISTRIBUTION WIDTH 12.1 % (10.0-14.5); WHITE BLOOD COUNT 10.7 10^3/uL (4.3-11.0)
--- NOTE | 2019-10-10 16:38 | Diagnostic Imaging Report ---
INDICATION: Pneumonia and dyspnea. EXAMINATION: PA and lateral views of the chest were obtained at 4:21 p.m. COMPARISON: 04/01/2018. FINDINGS: Heart and mediastinal silhouette are normal in appearance. The lungs are clear. There is no pneumothorax or pleural fluid. IMPRESSION: Negative chest, no change from 04/01/2018. Dictated by: Dictated on workstation # [id number]
[2019-10-10 17:01] LABS: ALANINE AMINOTRANSFERASE 20 U/L (0-55); ALBUMIN 4.4 GM/DL (3.2-4.5); ALKALINE PHOSPHATASE 86 U/L (40-136); BILIRUBIN,TOTAL 0.4 MG/DL (0.1-1.0); BUN/CREATININE RATIO 14; CALCIUM 9.7 MG/DL (8.5-10.1); CARBON DIOXIDE 20 MMOL/L (21-32); CHLORIDE 106 MMOL/L (98-107); CREATININE SERUM 0.79 MG/DL (0.60-1.30); GFR ESTIMATED > 60; GLUCOSE 121 MG/DL (70-105); POTASSIUM 3.9 MMOL/L (3.6-5.0); SODIUM 138 MMOL/L (135-145); TOTAL PROTEIN 7.5 GM/DL (6.4-8.2)
[2019-10-12 15:23] LABS: RSV PCR TEST Not Detected (Not Detected)
== END ==
LOC: RAD 15:37
PROVIDERS: ATTEND Nurse Practitioner Family
DX: J18.9 Pneumonia, unspecified organism (principal)
CPT/HCPCS: 36415; 71046; 80053; 85025; 86738; 87631

== ENCOUNTER → 2019-11-30 | Outpatient (CLI) | payer BC ==
[2019-11-30 09:00] LABS: BILIRUBIN,URINE NEGATIVE (NEGATIVE); CLARITY,URINE CLEAR; COLOR,URINE YELLOW; GLUCOSE, URINE (UA) NEGATIVE (NEGATIVE); KETONES,URINE NEGATIVE (NEGATIVE); LEUKOCYTE ESTERASE ,URINE NEGATIVE (NEGATIVE); NITRITE,URINE NEGATIVE (NEGATIVE); PROTEIN,URINE NEGATIVE (NEGATIVE)
[2019-11-30 09:09] LABS: BASOPHILS % (AUTO) 0 % (0-10); EOSINOPHILS # (AUTO) 0.1 10^3/uL (0.0-0.3); EOSINOPHILS % (AUTO) 1 % (0-10); HEMATOCRIT 44 % (35-52); HEMOGLOBIN 15.5 G/DL (11.5-16.0); LYMPHOCYTES % (AUTO) 26 % (12-44); MEAN CORPUSCULAR HEMOGLOBIN 31 PG (25-34); MEAN CORPUSCULAR HGB CONC 35 G/DL (32-36); MEAN CORPUSCULAR VOLUME 86 FL (80-99); MEAN PLATELET VOLUME 9.4 FL (7.4-10.4); MONOCYTES # (AUTO) 0.7 X 10^3 (0.0-1.0); MONOCYTES % (AUTO) 6 % (0-12); NEUTROPHILS # (AUTO) 7.6 X 10^3 (1.8-7.8); NEUTROPHILS % (AUTO) 67 % (42-75); PLATELET COUNT 297 10^3/uL (130-400); WHITE BLOOD COUNT 11.3 10^3/uL (4.3-11.0)
[2019-11-30 09:11] LABS: BACTERIA,URINE MODERATE /HPF; RBC,URINE 0-2 /HPF
[2019-11-30 09:29] LABS: ALANINE AMINOTRANSFERASE 17 U/L (0-55); ALBUMIN 4.3 GM/DL (3.2-4.5); ALKALINE PHOSPHATASE 79 U/L (40-136); BILIRUBIN,TOTAL 0.6 MG/DL (0.1-1.0); BUN/CREATININE RATIO 11; CALCIUM 9.3 MG/DL (8.5-10.1); CARBON DIOXIDE 25 MMOL/L (21-32); CHLORIDE 105 MMOL/L (98-107); GFR ESTIMATED > 60; GLUCOSE 93 MG/DL (70-105); POTASSIUM 4.2 MMOL/L (3.6-5.0); SODIUM 139 MMOL/L (135-145); TOTAL PROTEIN 7.5 GM/DL (6.4-8.2)
== END ==
LOC: LAB 08:47
PROVIDERS: ATTEND Family Medicine
DX: J02.9 Acute pharyngitis, unspecified (principal); R10.9 Unspecified abdominal pain; R50.9 Fever, unspecified
CPT/HCPCS: 36415; 80053; 81000; 85025; 86141; 87088; 87430; 87635; 87804

== ENCOUNTER → 2019-12-13 | Outpatient (CLI) | payer BC ==
--- NOTE | 2019-12-13 15:53 | Diagnostic Imaging Report ---
PROCEDURE: US Renal Bilateral. TECHNIQUE: Multiple real-time grayscale images were obtained over the kidneys in various projections bilaterally. INDICATION: Renal pain. FINDINGS: Right kidney measures 11.6 x 4.6 x 5.2 cm and the left kidney measures 11.4 x 5.0 x 5.6 cm. Cortical thickness and echogenicity is normal. No calculi are seen. There is no hydronephrosis. Urinary bladder is unremarkable. Bilateral ureteral jets are visualized. IMPRESSION: Unremarkable renal ultrasound. Dictated by: Dictated on workstation # [id number]
== END ==
LOC: RAD 14:43
PROVIDERS: ATTEND Nurse Practitioner Family
DX: N23 Unspecified renal colic (principal)
CPT/HCPCS: 76770

== ENCOUNTER → 2020-02-01 | Outpatient (CLI) | payer BC ==
--- NOTE | 2020-02-01 14:06 | Diagnostic Imaging Report ---
INDICATION: Palpable lumps in the left breast and left axillary region. No prior mammograms are available for comparison. This is a baseline study. 2-D and 3-D bilateral diagnostic mammography was performed with CAD. BB markers are placed at the areas of palpable abnormality in the left breast and left axilla. Both breasts are heterogeneously dense, limiting the sensitivity of mammography. There is an intraparenchymal lymph node in the upper outer right breast posterior depth. No suspicious mass is seen at the areas of palpable abnormality. No suspicious microcalcifications are seen. Left axillary palpable abnormality is not included on this study due to the very high nature of the abnormality. IMPRESSION: BI-RADS 0. No mammographic features suspicious for malignancy are identified. Even so, directed sonographic interrogation of the areas of palpable abnormality in the left breast and left axilla is recommended and will be performed today. ACR BI-RADS Category 0: Incomplete. (Needs additional imaging evaluation). Result letter will be mailed to the patient. Note: At least 10% of breast cancer is not imaged by mammography. Dictated by: Dictated on workstation # [id number]
--- NOTE | 2020-02-01 15:06 | Diagnostic Imaging Report ---
INDICATION: Palpable lumps left breast and left axilla. CORRELATION is made with diagnostic mammogram earlier the same day. Sonographic interrogation of the areas of palpable abnormality was performed. This corresponds to the 1-2 o'clock location of the left breast, 3:00 location left breast as well as the left axilla. No sonographic abnormality is identified. No solid or cystic mass is detected. IMPRESSION: BI-RADS Category 1 No sonographic abnormality is detected. Continued close clinical and self breast exams are recommended to confirm stability of the palpable abnormalities. Dictated by: Dictated on workstation # [id number]
== END ==
LOC: RAD 12:58
PROVIDERS: ATTEND Obstetrics & Gynecology
DX: N63.20 Unspecified lump in the left breast, unspecified quadrant (principal); N63.32 Unspecified lump in axillary tail of the left breast
CPT/HCPCS: 76642; 77066; G0279; 76641; 77062

== ENCOUNTER 2020-10-25 19:16 | Emergency (ER) | payer BC ==
[~2020-10-25] VITALS: Ht 172 cm; Wt 106.0 kg
--- NOTE | 2020-10-25 20:03 | ED Back Pain ---
General Chief Complaint: Hip/Pelvic Problems Stated Complaint: LOW BACK PAIN,HEAD INJ, NO LOC Nursing Triage Note: PT TO ED W/ C/O LT HIP PAIN ONSET AFTER SHE SLIPPED ET LANDED ON AN UPRIGHT BABY GATE AT HOME. DENIES STRIKING HEAD OR LOSING CONSCIOUSNESS. C/O LT HIP ET LOWER BACK PAIN Nursing Sepsis Screen: No Definite Risk Source of Information: Patient Exam Limitations: No Limitations History of Present Illness Date Seen by Provider: Oct 25, 2020 Time Seen by Provider: 19:45 Initial Comments Patient presents ER by private conveyance from home with chief complaint that earlier today she had a fall trying to step over a baby gate and landed squarely on the back of her left hip. She has a sharp deep pain radiating from the top of her left sided coccyx radiating down her left buttock and no further. No urinary hesitancy, loss of control of bowel or bladder, saddle anesthesia or weakness causing falls. No previous injury to the area. No difficulty bearing weight. She did take a quarter of a hydrocodone that she uses for her back back and it helped only a little bit with her pain. She denies striking her head nor loss of consciousness. Allergies and Home Medications Allergies Coded Allergies: Penicillins (Verified Allergy, Mild, 08/17/18) sulfamethoxazole (Verified Allergy, Mild, HIVES, 08/17/18) trimethoprim (Verified Allergy, Mild, HIVES, 08/17/18) Home Medications Alprazolam 0.5 Mg Tablet, 0.5 MG PO BID PRN for ANXIETY Prescribed by: GERBER LAWSON on 04/20/19 1323 Dicyclomine HCl 20 Mg Tablet, 20 MG PO Q6H Prescribed by: LONNIE LUTZ on 09/15/18 012 Hyoscyamine Sulfate 0.125 Mg Tab.subl, 1-2 TAB SL Q4H Prescribed by: LONNIE LUTZ on 09/15/18123 Pantoprazole Sodium 40 Mg Tablet.dr, 40 MG PO DAILY Prescribed by: LONNIE LUTZ on 09/15/18123 Sucralfate 1 Gm Tablet, 1 GM PO QIDACHS Prescribed by: LONNIE LUTZ on 09/15/18123 Patient Home Medication List Home Medication List Reviewed: Yes Review of Systems Constitutional: No chills, No diaphoresis EENTM: No ear discharge, No ear pain Respiratory: No cough, No short of breath Cardiovascular: No chest pain, No edema Gastrointestinal: No abdominal pain, No nausea Genitourinary: No discharge, No dysuria : No Musculoskeletal: see HPI, back pain; No joint pain All Other Systems Reviewed Negative Unless Noted: Yes Past Hgjqpcn-Ecyzsg-Bxnqwx Hx Patient Social History Alcohol Use: Denies Use Smoking Status: Former Smoker Type Used: Cigarettes Former Smoker, Quit: Aug 17, 2014 2nd Hand Smoke Exposure: Yes Recent Infectious Disease Expo: No Recent Hopitalizations: No Immunizations Up To Date Tetanus Booster (TDap): Unknown Seasonal Allergies Seasonal Allergies: No Past Medical History Surgeries: Yes (08/09/18 LEEP BX, 08/22/18--NORMAL EGD/COLONOSCOPY) Section, Gallbladder Respiratory: No Cardiac: Yes Palpitations Neurological: Yes Headaches /Migraines Reproductive Disorders: Yes Female Reproductive Disorders: Menstrual Problems [employer] History: IUD Sexually Transmitted Disease: Yes (HPV) HIV/AIDS: No Genitourinary: No Gastrointestinal: Yes Chronic Constipation Musculoskeletal: Yes Degenerate Disk Disease, Chronic Back Pain Endocrine: No HEENT: Yes (GLASSES) Loss of Vision: Bilateral Hearing Impairment: Denies Cancer: No Psychosocial: No Integumentary: No Blood Disorders: No Adverse Reaction/Blood Tranf: No (N/A) Family Medical History Heart Disease, Cancer, Diabetes Physical Exam Vital Signs Vital Signs - First Documented 10/25/20 19:25 Temp 36.6 Pulse 106 Resp 20 B/P (MAP) 137/86 (103) Pulse Ox 97 O2 Delivery Room Air Capillary Refill : Less Than 3 Seconds Height, Weight, BMI Height: 5'9.00" Weight: 200lbs. 0.0oz. 90.583673ul; 35.00 BMI Method:Stated General Appearance: WD/WN, Anxious HEENT: PERRL/EOMI, Pharynx Normal Cardiovascular: Regular Rate, Rhythm, No Edema Respiratory: No Accessory Muscle Use, No Respiratory Distress Back: Normal Inspection, No Vertebral Tenderness, Muscle Spasm (L5-S1 facet joint recreates symptoms of sharp pain down her left buttock on the left side when palpated) Extremity: Normal Capillary Refill, Normal Inspection, Normal Range of Motion, Non Tender Neurologic/Psychiatric: Alert, Oriented x3, No Motor/Sensory Deficits Skin: Normal Color, Warm/Dry Progress/Results/Core Measures Results/Orders My Orders Orders - NERY BERMEO Sacrum And Coccyx (10/25/20 19:58) Lumbar Spine - 2-3 Views (10/25/20 19:58) Vital Signs/I&O 10/25/20 19:25 Temp 36.6 Pulse 106 Resp 20 B/P (MAP) 137/86 (103) Pulse Ox 97 O2 Delivery Room Air Blood Pressure Mean: 103 Progress Progress Note : Time: 20:02 Progress Note Plain film of the sacrum/coccyx and lumbar spine to rule out fracture. Offered her Toradol and she said she would just take ibuprofen at home. She says she just wants to know if there is anything broken. Her hip itself is nontender over the greater trochanter and bears her weight just fine. Suspect aggravated sacroiliitis/lumbago/L5-S1 facet joint and sciatica. Diagnostic Imaging Diagonstic Imaging: Xray Plain Films/CT/US/NM/MRI: other (Lumbar spine/sacrum/coccyx) Comments [facility] [place], [place] NAME: ERROL RAMOS [facility] REC#: [id number] PT STATUS: REG ER : 1980 PHYSICIAN: NREY BERMEO MD ADMIT DATE: 10/25/20/ER Draft Date of Exam:10/25/20 SACRUM AND COCCYX INDICATION: Fall with sacrococcygeal pain. EXAMINATION: AP and lateral views of the sacrum were obtained. FINDINGS: There is no displaced fracture although there is irregularity within the posterior elements at the S2-S3 level which may represent a nondisplaced fracture. Coccyx appears to be intact. IMPRESSION: Possible nondisplaced fracture involving the posterior elements at S2-S3. No other complication is seen. Dictated on workstation # [id number] Dict: 10/25/202032 Trans: 10/25/202037 [facility] [id number] Interpreted by: KENTON MARIA MD Electronically signed by: [facility] [place] NAME: ERROL RAMOS [facility] REC#: [id number] PT STATUS: REG ER : 1980 PHYSICIAN: NERY BERMEO MD ADMIT DATE: 10/25/20/ER Draft Date of Exam:10/25/20 LUMBAR SPINE - 2-3 VIEWS INDICATION: Fall with low back pain. EXAMINATION: AP and lateral views of the lumbar spine were obtained. FINDINGS: There is slight right convexity curvature of the spine centered at the lumbosacral junction. There is sclerosis about the L4-L5 and L5-S1 facet joints. No definite fracture is identified. IMPRESSION: Lower lumbar spondylosis with mild right convexity curvature centered at the lumbosacral junction. This could reflect muscle spasm. Dictated on workstation # [id number] Dict: 10/25/202030 Trans: 10/25/202033 [facility] [id number] Interpreted by: KENTON MARIA MD Electronically signed by: Reviewed: Reviewed by Me Departure Impression Primary Impression: Fall Qualified Codes: W19.XXXA - Unspecified fall, initial encounter Additional Impressions: Sciatica Qualified Codes: M54.32 - Sciatica, left side Sacral fracture, closed Qualified Codes: S32.10XA - Unspecified fracture of sacrum, initial encounter for closed fracture Disposition: HOME, SELF-CARE Condition: Stable Departure-Patient Inst. Decision time for Depature: 20:51 Referrals: DAILENE CHRISTINE DO (PCP) Primary Care Physician TORRIE CHRISTINE, MARCY (Family) Primary Care Physician GERI PRADO MD Patient Instructions: Sacroiliac Joint Pain, Sciatica Exercises Add. Discharge Instructions: I suspect there may be a small closed fracture in the sacrum on the side where you are having the pain. Find a position of comfort and use topical creams such as capsaicin oil or icy hot with menthol. Ice for the first couple days 20 minutes on every 2 hours may be helpful for pain. Heat may be helpful for pain. Tylenol and ibuprofen for pain. Follow-up in [address] PRADO All discharge instructions reviewed with patient and/or family. Voiced understanding. Work/School Note: Work Release Form Date Seen in the Emergency Department: Oct 25, 2020 Return to Work: Oct 27, 2020 Restrictions: Need Release from Doctor Other Restrictions Listed Below: Position of comfort and light duty; work for no more than 4 hours a day. Restrictions: Restrictions until 11/03/2020. Copy Copies To 1: GERI PRADO MD, TITUS J Oct 25, 2020 20:03
--- NOTE | 2020-10-25 20:35 | Diagnostic Imaging Report ---
INDICATION: Fall with low back pain. EXAMINATION: AP and lateral views of the lumbar spine were obtained. FINDINGS: There is slight right convexity curvature of the spine centered at the lumbosacral junction. There is sclerosis about the L4-L5 and L5-S1 facet joints. No definite fracture is identified. IMPRESSION: Lower lumbar spondylosis with mild right convexity curvature centered at the lumbosacral junction. This could reflect muscle spasm. Dictated by: Dictated on workstation # [id number]
--- NOTE | 2020-10-25 20:38 | Diagnostic Imaging Report ---
INDICATION: Fall with sacrococcygeal pain. EXAMINATION: AP and lateral views of the sacrum were obtained. FINDINGS: There is no displaced fracture although there is irregularity within the posterior elements at the S2-S3 level which may represent a nondisplaced fracture. Coccyx appears to be intact. IMPRESSION: Possible nondisplaced fracture involving the posterior elements at S2-S3. No other complication is seen. Dictated by: Dictated on workstation # [id number]
[2020-10-25 21:10] VITALS: BP 136/88
== END 2020-10-25 21:10 | disposition home or self-care (01) ==
LOC: EDUNIT# 19:16 → ER 19:19
DX: S32.10XA Unspecified fracture of sacrum, initial encounter for closed fracture (principal); M54.32 Sciatica, left side; I10 Essential (primary) hypertension; Z88.0 Allergy status to penicillin; Z88.2 Allergy status to sulfonamides; Z88.1 Allergy status to other antibiotic agents; Z87.891 Personal history of nicotine dependence; Z82.49 Family history of ischemic heart disease and other diseases of the circulatory system; Z80.9 Family history of malignant neoplasm, unspecified; Z83.3 Family history of diabetes mellitus; W10.8XXA Fall (on) (from) other stairs and steps, initial encounter
CPT/HCPCS: 72100; 72220

== ENCOUNTER → 2020-11-03 | Outpatient (CLI) | payer BC ==
--- NOTE | 2020-11-03 13:45 | Diagnostic Imaging Report ---
EXAM: LUMBOSACRAL SPINE 4 VIEWS OR. INDICATION: Low back pain. Sacral fracture. COMPARISON: Lumbar spine radiographs 10/25/2020. FINDINGS: There are five lumbar-type vertebral bodies. Normal alignment. Vertebral body heights are preserved. No fractures or pars defects. Moderate degenerative endplate changes at L5-S1. The visualized pelvis, including the partially visualized sacrum, is intact. IMPRESSION: 1. Moderate spondylotic changes at L5-S1. 2. No acute radiographic findings in the lumbar spine. 3. Visualized portions of the pelvis and sacrum are negative. Dictated by: Dictated on workstation # [id number]
== END ==
LOC: RAD 09:59
PROVIDERS: ATTEND Internal Medicine
DX: M47.817 Spondylosis without myelopathy or radiculopathy, lumbosacral region (principal)
CPT/HCPCS: 72110

== ENCOUNTER 2020-11-05 23:04 | Emergency (ER) | payer BC ==
[~2020-11-05] VITALS: Ht 178 cm; Wt 110.4 kg
[2020-11-05 23:12] VITALS: BP 130/84
[2020-11-05] MEDS ORDERED: LORA10TA7 (23:19)
[2020-11-05] MEDS ORDERED: SPIR25TA5 (23:19)
[2020-11-05] MEDS ORDERED: FAMO20TA5 (23:19)
[2020-11-05 23:38] LABS: BILIRUBIN,URINE NEGATIVE (NEGATIVE); CLARITY,URINE CLEAR; COLOR,URINE YELLOW; GLUCOSE, URINE (UA) NEGATIVE (NEGATIVE); KETONES,URINE NEGATIVE (NEGATIVE); LEUKOCYTE ESTERASE ,URINE TRACE (NEGATIVE); NITRITE,URINE NEGATIVE (NEGATIVE); PROTEIN,URINE NEGATIVE (NEGATIVE)
[2020-11-05 23:46] LABS: BASOPHILS # (AUTO) 0.1 10^3/uL (0.0-0.1); BASOPHILS % (AUTO) 1 % (0-10); EOSINOPHILS # (AUTO) 0.2 10^3/uL (0.0-0.3); EOSINOPHILS % (AUTO) 2 % (0-10); HEMATOCRIT 43 % (35-52); HEMOGLOBIN 14.9 g/dL (11.5-16.0); LYMPHOCYTES # (AUTO) 3.7 10^3/uL (1.0-4.0); LYMPHOCYTES % (AUTO) 33 % (12-44); MEAN CORPUSCULAR HEMOGLOBIN 30 pg (25-34); MEAN CORPUSCULAR HGB CONC 35 g/dL (32-36); MEAN CORPUSCULAR VOLUME 88 fL (80-99); MEAN PLATELET VOLUME 9.1 fL (9.0-12.2); MONOCYTES # (AUTO) 0.7 10^3/uL (0.0-1.0); MONOCYTES % (AUTO) 6 % (0-12); NEUTROPHILS # (AUTO) 6.4 10^3/uL (1.8-7.8); NEUTROPHILS % (AUTO) 58 % (42-75); PLATELET COUNT 335 10^3/uL (130-400); WHITE BLOOD COUNT 11.1 10^3/uL (4.3-11.0)
[2020-11-05 23:51] LABS: ALBUMIN 4.3 GM/DL (3.2-4.5); CHLORIDE 104 MMOL/L (98-107)
--- NOTE | 2020-11-05 23:51 | ED General ---
General Chief Complaint: Glucose Problems Stated Complaint: LOW BLOOD SUGAR 74,DIZZY Nursing Triage Note: C/O LEG CRAMPING, LOW BLOOD GLUCOSE, INTERMITTANT DIZZINESS X4 HRS. Nursing Sepsis Screen: No Definite Risk Source of Information: Patient History of Present Illness Date Seen by Provider: Nov 05, 2020 Time Seen by Provider: 23:22 Initial Comments PT ARRIVES VIA POV FROM HOME STATES SHE HAS HAD GENERALIZED LEG CRAMPS AND LEGS HAVE FELT "ACHY" OFF AND ON ALL DAY NO SWELLING TO LEGS NO INJURY TO LEGS STATES ABOUT 4 HOURS AGO, SHE STARTED FEELING LIGHTHEADED AFTER SHE ATE ( "STROGANOFF" AND "JUICE"), SO SHE CHECKED HER BLOOD SUGAR AND IT WAS 325, AND SHE SAYS "I FREAKED OUT SO I TESTED IT 7 TIMES IN 7 MINUTES AND IT WAS ALL OVER THE PLACE" THEN, STARTING AT 2220 TONIGHT, SHE CHECKED IT EVER 2-3 MINUTES AND IT WAS 126,138, 126, ....THEN THE LAST TIME IT WAS 74 AND SHE SAYS SHE "FREAKED OUT AND CAME HERE" NO NAUSEA/VOMITING/DIARRHEA OR ABDOMINAL PAIN NO URINARY SYMPTOMS--NO FREQUENCY, OR PAIN ON URINATION NO EXCESSIVE THIRST NO HEADACHE NO VISION CHANGES NO PARESTHESIAS OR MOTOR DEFICITS NO SWEATS NO FEVER OR RECENT ILLNESS, BUT STATES SHE DID HAVE A COUGH A FEW WEEKS AGO, AND TESTED NEGATIVE FOR COVID-19 AT THAT TIME, AND SYMPTOMS WENT AWAY WITHOUT TREATMENT. HAS NOT HAD A COVID-19 VACCINATION NO CHEST PAIN NO SHORTNESS OF BREATH PT FELL AND FRACTURED HER SACRUM ON 10/25/20 HAS BEEN PRESCRIBED HYDROCODONE FOR IT, STATES SHE HAS NOT TAKEN ANYTHING FOR PAIN TODAY, BECAUSE IT IS NOT HURTING MUCH TODAY (TAKES IT ALSO FOR CHRONIC BACK PAIN) SAW FAMILIA MALIK ON Tuesday11/03/20 FOR FOLLOW UP FOR THAT PROBLEM NO MEDICATION CHANGES OR TESTS DONE AT THAT VISIT. NO RADIATION OF PAIN FROM BACK/SACRUM NO LOSS OF BOWEL OR BLADDER FUNCTION NO SADDLE ANESTHESIA PT STATES SHE HAS PCOS AND INSULIN RESISTANCE AND IS "BORDERLINE DIABETIC" STATES SHE WAS DX 2 YEARS AGO. DOES NOT TAKE ANY DIABETIC MEDICATIONS STATES SHE OCCASIONALLY CHECKS HER BLOOD SUGAR, BUT HAS NOT CHECKED IT FOR ABOUT 6 MONTHS, UNTIL TONIGHT. LMP--IUD IN PLACE FOR A COUPLE OF YEARS, NO PERIOD SINCE IT WAS PLACED PCP: FAMILIA CHRISTINE/DR. CHRISTINE'S OFFICE Allergies and Home Medications Allergies Coded Allergies: Penicillins (Verified Allergy, Mild, 08/17/18) sulfamethoxazole (Verified Allergy, Mild, HIVES, 08/17/18) trimethoprim (Verified Allergy, Mild, HIVES, 08/17/18) Patient Home Medication List Home Medication List Reviewed: Yes Review of Systems Review of Systems Constitutional: see HPI; No chills, No diaphoresis; dizziness; No fever, No malaise, No weakness EENTM: no symptoms reported; No blurred vision Respiratory: no symptoms reported; No cough, No short of breath Cardiovascular: no symptoms reported; No chest pain, No edema, No palpitations, No syncope Gastrointestinal: no symptoms reported; No abdominal pain, No nausea, No vomiting Genitourinary: no symptoms reported Musculoskeletal: see HPI, muscle pain Skin: no symptoms reported Psychiatric/Neurological: No Symptoms Reported; Denies Headache, Denies Numbness, Denies Paresthesia, Denies Weakness Hematologic/Lymphatic: No Symptoms Reported Immunological/Allergic: no symptoms reported Past Rbavzqt-Rjkmxf-Aadyyb Hx Past Med/Social Hx: Reviewed and Corrections made Patient Social History Alcohol Use: Denies Use Smoking Status: Former Smoker Type Used: Cigarettes Former Smoker, Quit: Aug 17, 2014 2nd Hand Smoke Exposure: Yes Recent Infectious Disease Expo: No Recent Hopitalizations: No Immunizations Up To Date Tetanus Booster (TDap): Unknown Seasonal Allergies Seasonal Allergies: No Past Medical History Surgeries: Yes (08/09/18 LEEP BX, 08/22/18--NORMAL EGD/COLONOSCOPY) Section, Gallbladder Respiratory: No Cardiac: Yes Palpitations Neurological: Yes Headaches /Migraines : No Reproductive Disorders: Yes Female Reproductive Disorders: Menstrual Problems, 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 Sexually Transmitted Disease: Yes (HPV) HIV/AIDS: No Genitourinary: No Gastrointestinal: Yes Chronic Constipation Musculoskeletal: Yes Degenerate Disk Disease, Chronic Back Pain Endocrine: Yes (PCOS/INSULIN RESISTANCE-PER PT) HEENT: Yes (GLASSES) Loss of Vision: Bilateral Hearing Impairment: Denies Cancer: No Psychosocial: Yes Anxiety Integumentary: No Blood Disorders: No Adverse Reaction/Blood Tranf: No (N/A) Family Medical History Heart Disease, Cancer, Diabetes Physical Exam Vital Signs Vital Signs - First Documented 11/05/20 23:12 Temp 36.7 Pulse 91 Resp 18 B/P (MAP) 130/84 (99) Pulse Ox 97 O2 Delivery Room Air Capillary Refill : Less Than 3 Seconds Height, Weight, BMI Height: 5'9.00" Weight: 200lbs. 0.0oz. [id number]; 34.00 BMI Method:Stated General Appearance: No Apparent Distress, WD/WN, Other (WALKS AND MOVES QUICKLY WITHOUT DIFFICULTY. DOES NOT APPEAR TO BE IN ANY DISCOMFORT OR DISTRESS. ) HEENT: PERRL/EOMI Neck: Normal Inspection Respiratory: Normal Breath Sounds, No Accessory Muscle Use, No Respiratory Distress Cardiovascular: Regular Rate, Rhythm, No Edema, No JVD, No Murmur, Normal Peripheral Pulses Gastrointestinal: Normal Bowel Sounds, No Organomegaly, No Pulsatile Mass, Non Tender, Soft Back: No CVA Tenderness Extremity: Normal Capillary Refill, Normal Range of Motion, No Calf Tenderness, No Pedal Edema, Other (VERY SLIGHT GENERALIZED TENDERNESS THROUGHOUT BOTH LEGS. NO SWELLING. NO CORDING. NO SPECIFIC CALF TENDERNESS. NEGATIVE JOCELINE'S. NO DISCOLORATION. MOTOR/SENSORY/VASCULAR INTACT. 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 Skin: Normal Color, Warm/Dry Progress/Results/Core Measures Suspected Sepsis Recent Fever Within 48 Hours: No Infection Criteria Present: None New/Unexplained Altered Menta: No Sepsis Screen: No Definite Risk SIRS Temperature: Pulse: 91 Respiratory Rate: 18 Laboratory Tests 11/05/20 23:30: White Blood Count 11.1H Blood Pressure 130 /84 Mean: 99 Laboratory Tests 11/05/20 23:30: Creatinine 0.77, Platelet Count 335, Total Bilirubin 0.3 Results/Orders Lab Results Laboratory Tests Test 11/05/20 23:16 11/05/20 23:17 11/05/20 23:30 Range/Units Glucometer 91 70-110 MG/DL Urine Color YELLOW Urine Clarity CLEAR Urine pH 6.0 5-9 Urine Specific [place] 1.010 L 1.016-1.022 Urine Protein NEGATIVE NEGATIVE Urine Glucose (UA) NEGATIVE NEGATIVE Urine Ketones NEGATIVE NEGATIVE Urine Nitrite NEGATIVE NEGATIVE Urine Bilirubin NEGATIVE NEGATIVE Urine Urobilinogen 0.2 < = 1.0 MG/DL Urine Leukocyte Esterase TRACE H NEGATIVE Urine RBC (Auto) TRACE-I NEGATIVE Urine RBC 0-2 /HPF Urine WBC 0-2 /HPF Urine Crystals PRESENT H /LPF Urine Amorphous Sediment RARE MICHAEL URATES H /LPF Urine Bacteria TRACE /HPF Urine Casts NONE /LPF Urine Mucus NEGATIVE /LPF Urine Culture Indicated NO Urine Opiates Screen POSITIVE H NEGATIVE Urine Oxycodone Screen NEGATIVE NEGATIVE Urine Methadone Screen NEGATIVE NEGATIVE Urine Propoxyphene Screen NEGATIVE NEGATIVE Urine Barbiturates Screen NEGATIVE NEGATIVE Ur Tricyclic Antidepressants Screen NEGATIVE NEGATIVE Urine Phencyclidine Screen NEGATIVE NEGATIVE Urine Amphetamines Screen NEGATIVE NEGATIVE Urine Methamphetamines Screen NEGATIVE NEGATIVE Urine Benzodiazepines Screen NEGATIVE NEGATIVE Urine Cocaine Screen NEGATIVE NEGATIVE Urine Cannabinoids Screen NEGATIVE NEGATIVE White Blood Count 11.1 H 4.3-11.0 10^3/uL Red Blood Count 4.92 3.80-5.11 10^6/uL Hemoglobin 14.9 11.5-16.0 g/dL Hematocrit 43 35-52 % Mean Corpuscular Volume 88 80-99 fL Mean Corpuscular Hemoglobin 30 25-34 pg Mean Corpuscular Hemoglobin Concent 35 32-36 g/dL Red Cell Distribution Width 11.3 10.0-14.5 % Platelet Count 335 130-400 10^3/uL Mean Platelet Volume 9.1 9.0-12.2 fL Immature Granulocyte % (Auto) 0 % Neutrophils (%) (Auto) 58 42-75 % Lymphocytes (%) (Auto) 33 12-44 % Monocytes (%) (Auto) 6 0-12 % Eosinophils (%) (Auto) 2 0-10 % Basophils (%) (Auto) 1 0-10 % Neutrophils # (Auto) 6.4 1.8-7.8 10^3/uL Lymphocytes # (Auto) 3.7 1.0-4.0 10^3/uL Monocytes # (Auto) 0.7 0.0-1.0 10^3/uL Eosinophils # (Auto) 0.2 0.0-0.3 10^3/uL Basophils # (Auto) 0.1 0.0-0.1 10^3/uL Immature Granulocyte # (Auto) 0.0 0.0-0.1 10^3/uL Sodium Level 139 135-145 MMOL/L Potassium Level 3.8 3.6-5.0 MMOL/L Chloride Level 104 98-107 MMOL/L Carbon Dioxide Level 22 21-32 MMOL/L Anion Gap 13 5-14 MMOL/L Blood Urea Nitrogen 7 7-18 MG/DL Creatinine 0.77 0.60-1.30 MG/DL Estimat Glomerular Filtration Rate > 60 BUN/Creatinine Ratio 9 Glucose Level 102 70-105 MG/DL Calcium Level 9.4 8.5-10.1 MG/DL Corrected Calcium 9.2 8.5-10.1 MG/DL Magnesium Level 1.9 1.6-2.4 MG/DL Total Bilirubin 0.3 0.1-1.0 MG/DL Aspartate Amino Transf (AST/SGOT) 21 5-34 U/L Alanine Aminotransferase (ALT/SGPT) 28 0-55 U/L Alkaline Phosphatase 85 40-136 U/L Total Creatine Kinase 39 29-168 U/L Creatine Kinase MB 0.5 <6.6 NG/ML Myoglobin 21.0 10.0-92.0 NG/ML Total Protein 7.5 6.4-8.2 GM/DL Albumin 4.3 3.2-4.5 GM/DL Amylase Level 44 25-125 U/L Lipase 59 8-78 U/L My Orders Orders - LONNIE LUTZ DO Accucheck Stat ONCE (11/05/20 23:29) Urine Bedside (11/05/20 23:29) Amylase (11/05/20 23:29) Cbc With Automated Diff (11/05/20 23:29) Comprehensive Metabolic Panel (11/05/20 23:29) Creatine Kinase (11/05/20 23:29) Creatine Kinase Mb (11/05/20 23:29) Drug Screen Stat (Urine) (11/05/20 23:29) Lipase (11/05/20 23:29) Magnesium (11/05/20 23:29) Ua Culture If Indicated (11/05/20 23:29) Myoglobin Serum (11/05/20 23:29) Vital Signs/I&O 11/05/20 23:12 Temp 36.7 Pulse 91 Resp 18 B/P (MAP) 130/84 (99) Pulse Ox 97 O2 Delivery Room Air Capillary Refill : Less Than 3 Seconds Blood Pressure Mean: 99 Point of Care Testing Finger Stick Blood Glucose: 91 Blood Glucose Action Taken: ERP NOTIFIED Departure Impression Primary Impression: LABILE BLOOD SUGAR READINGS Additional Impression: Bilateral leg pain Disposition: 01 HOME, SELF-CARE Condition: Stable Departure-Patient Inst. Referrals: ADILENE CHRISTINE DO (PCP) Primary Care Physician TORRIE CHRISTINE, MARCY (Family) Primary Care Physician Patient Instructions: How to Keep Track of Your Blood Sugar, Muscle and Bone Pain (DC), Nocturnal (Nighttime) Leg Cramps (DC) Add. Discharge Instructions: IBUPROFEN NEEDED FOR PAIN TAKE YOUR HYDROCODONE NEEDED FOR PAIN FOLLOW UP WITH YOUR DR THIS WEEK FOR FURTHER EVALUATION All discharge instructions reviewed with patient and/or family. Voiced understanding. LONNIE LUTZ DO Nov 05, 2020 23:51
[2020-11-05 23:52] LABS: POTASSIUM 3.8 MMOL/L (3.6-5.0); SODIUM 139 MMOL/L (135-145)
[2020-11-05 23:53] LABS: AMYLASE 44 U/L (25-125); CALCIUM 9.4 MG/DL (8.5-10.1)
[2020-11-05 23:54] LABS: GLUCOSE 102 MG/DL (70-105); TOTAL PROTEIN 7.5 GM/DL (6.4-8.2)
[2020-11-05 23:55] LABS: CARBON DIOXIDE 22 MMOL/L (21-32)
[2020-11-05 23:56] LABS: BILIRUBIN,TOTAL 0.3 MG/DL (0.1-1.0)
[2020-11-05 23:57] LABS: ALKALINE PHOSPHATASE 85 U/L (40-136)
[2020-11-05 23:58] LABS: CREATININE SERUM 0.77 MG/DL (0.60-1.30); GFR ESTIMATED > 60
[2020-11-05 23:59] LABS: BUN/CREATININE RATIO 9
[2020-11-06] LABS: ALANINE AMINOTRANSFERASE 28 U/L (0-55); MAGNESIUM 1.9 MG/DL (1.6-2.4)
[2020-11-06 00:01] LABS: CREATINE KINASE 39 U/L (29-168); LIPASE 59 U/L (8-78)
[2020-11-06 00:03] LABS: AMPHETAMINE SCREEN, URINE NEGATIVE (NEGATIVE); BARBITURATE SCREEN URINE NEGATIVE (NEGATIVE); BENZODIAZEPINES SCREEN URINE NEGATIVE (NEGATIVE); CANNABINOID SCREEN, URINE NEGATIVE (NEGATIVE); COCAINE SCREEN URINE NEGATIVE (NEGATIVE); METHADONE STAT NEGATIVE (NEGATIVE); METHAMPHETAMINE SCREEN URINE S NEGATIVE (NEGATIVE); OPIATE SCREEN URINE POSITIVE (NEGATIVE); OXYCODONE STAT NEGATIVE (NEGATIVE); PROPOXYPHENE STAT NEGATIVE (NEGATIVE); TRICYCLIC ANTIDEPRESSANTS SCRE NEGATIVE (NEGATIVE)
[2020-11-06 00:06] LABS: AMORPHOUS SEDIMENT,UR RARE AMOR URATES /LPF; BACTERIA,URINE TRACE /HPF; RBC,URINE 0-2 /HPF; WBC,URINE 0-2 /HPF
[2020-11-06 00:09] LABS: CREATINE KINASE MB 0.5 NG/ML (<6.6)
== END 2020-11-06 00:25 | disposition home or self-care (01) ==
LOC: EDUNIT# 23:04 → ER 23:07
DX: R73.09 Other abnormal glucose (principal); M79.605 Pain in left leg; M79.604 Pain in right leg; Z88.0 Allergy status to penicillin; Z88.2 Allergy status to sulfonamides; Z88.1 Allergy status to other antibiotic agents; Z87.891 Personal history of nicotine dependence
CPT/HCPCS: 36415; 80053; 80306; 81000; 82150; 82550; 82553; 82962; 83690; 83735; 83874; 84703; 85025

== ENCOUNTER 2020-12-03 21:12 | Emergency (ER) | payer BC, OTHER ==
[~2020-12-03] VITALS: Ht 172.7 cm; Wt 109.1 kg
[~2020-12-03 21:12] MED LIST changes: +FAMO20TA5; +LORA10TA7
[2020-12-03] MEDS ORDERED: TETANUS,DIPTH,PERTUSS P/F (BOOSTRIX) 0.5 ML VIAL IM ONE (22:45)
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
[2020-12-03] MEDS ORDERED: ONDA4TAB11 PO (23:08)
[2020-12-03 23:13] VITALS: BP 119/84
== END 2020-12-03 23:13 | disposition home or self-care (01) ==
LOC: EDUNIT# 21:12 → ER 21:14
DX: S06.0X0A Concussion without loss of consciousness, initial encounter (principal); S01.01XA Laceration without foreign body of scalp, initial encounter; Z87.891 Personal history of nicotine dependence; Z77.22 Contact with and (suspected) exposure to environmental tobacco smoke (acute) (chronic); Z23 Encounter for immunization; W22.8XXA Striking against or struck by other objects, initial encounter
CPT/HCPCS: 90715; 99284

== ENCOUNTER → 2021-01-28 | Outpatient (CLI) | payer OTHER ==
--- NOTE | 2021-01-28 16:23 | Diagnostic Imaging Report ---
INDICATION: Pain. FINDINGS: The alignment is normal. There is degenerative disease at L5-S1. No spondylolysis or spondylolisthesis. No acute fractures are identified. IMPRESSION: Degenerative disease at L5-S1 otherwise unremarkable. Dictated by: Dictated on workstation # [id number]
== END ==
LOC: RAD 15:33
PROVIDERS: ATTEND Nurse Practitioner Family
DX: M47.27 Other spondylosis with radiculopathy, lumbosacral region (principal); S32.011D Stable burst fracture of first lumbar vertebra, subsequent encounter for fracture with routine healing; F90.0 Attention-deficit hyperactivity disorder, predominantly inattentive type; X58.XXXD Exposure to other specified factors, subsequent encounter
CPT/HCPCS: 72110

== ENCOUNTER 2021-02-02 13:50 | Outpatient (RCR) | payer OTHER | END 2021-03-10 10:00 | disposition home or self-care (01) | PROVIDERS: ATTEND Nurse Practitioner Family | DX: M50.13 Cervical disc disorder with radiculopathy, cervicothoracic region (principal) ==

== ENCOUNTER → 2022-01-15 | Outpatient (CLI) | payer OTHER ==
[~2022-01-15] MED LIST changes: +DICY20TA PO; -DICY20TA10 PO
--- NOTE | 2022-01-15 16:54 | Diagnostic Imaging Report ---
INDICATION: Routine screening. COMPARISON: Prior mammogram from 02/01/2020. EXAMINATION: 2D and 3D bilateral screening mammography was performed with CAD. The current study was also evaluated with a Computer Aided Detection (CAD) system. FINDINGS: Both breasts are heterogeneously dense, limiting the sensitivity of mammography. Interparenchymal lymph node in the outer right breast is stable. No spiculated mass or malignant-appearing microcalcifications are seen. Axillae are unremarkable. IMPRESSION: No mammographic features suspicious for malignancy are identified. ACR BI-RADS Category 2: Benign findings. Result letter will be mailed to the patient. Note: At least 10% of breast cancer is not imaged by mammography. Dictated by: Dictated on workstation # [id number]
== END ==
LOC: RAD 15:30
PROVIDERS: ATTEND Nurse Practitioner Family
DX: Z12.31 Encounter for screening mammogram for malignant neoplasm of breast (principal)
CPT/HCPCS: 77063; 77067

== ENCOUNTER 2022-04-15 09:10 | Outpatient (RCR) | payer OTHER | END 2022-04-16 | disposition home or self-care (01) | DX: S86.012D Strain of left Achilles tendon, subsequent encounter (principal); X58.XXXD Exposure to other specified factors, subsequent encounter ==

== ENCOUNTER → 2022-05-17 | Outpatient (RCR) | payer OTHER | END | disposition home or self-care (01) | DX: M54.2 Cervicalgia (principal) ==

== ENCOUNTER 2022-06-03 08:27 | Outpatient (RCR) | payer OTHER | END 2022-06-16 | disposition home or self-care (01) | DX: M54.2 Cervicalgia (principal) ==

== ENCOUNTER → 2022-09-28 | Outpatient (CLI) | payer BC, OTHER ==
--- NOTE | 2022-09-28 13:08 | Diagnostic Imaging Report ---
INDICATION: Dyspepsia The patient was administered a solid test meal with 1.1 mCi Tc 99M sulfur colloid used for labeling of the meal. Region of interest curves were drawn over the stomach with the percent of retained activity calculated at hourly timed intervals for a total of 4 hours. A time activity curve was generated. FINDINGS: Percent retention as follows: (percent of administered activity retained within the stomach): 1.0 hour: 25% {<30% = Rapid, >90% = Delayed} 2.0 hour: 1% {>60% = Abnormally Delayed} 3.0 hour: 1% {>30% = Abnormally Delayed} 4.0 hour: 1% {>10% = Abnormally Delayed} IMPRESSION: Rapid gastric emptying. Dictated by: Dictated on workstation # [id number]
== END ==
LOC: CARD 09:00
PROVIDERS: ATTEND Nurse Practitioner Family
DX: K30 Functional dyspepsia (principal); K59.09 Other constipation
CPT/HCPCS: 78264; A9541

== ENCOUNTER 2022-12-09 13:00 | Outpatient (RCR) | payer BC | END 2022-12-15 | disposition home or self-care (01) | DX: M54.12 Radiculopathy, cervical region (principal); M54.16 Radiculopathy, lumbar region ==

== ENCOUNTER 2023-01-29 17:30 | Emergency (ER) | payer BC ==
[~2023-01-29] VITALS: Ht 170 cm; Wt 86.2 kg
[2023-01-29] MEDS ORDERED: fentaNYL INJ 100 MCG/2 ML AMP IM STA (17:58)
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
--- NOTE | 2023-01-29 18:31 | Diagnostic Imaging Report ---
Indication: Chest trauma Portable chest 6:23 PM Heart and mediastinum are normal. Lungs are clear. There are no effusions or pneumothoraces. IMPRESSION: Negative chest Dictated by: Dictated on workstation # [id number]
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
[2023-01-29] MEDS ORDERED: ACHD5005 PO (18:49)
[2023-01-29] MEDS ORDERED: IBUP-1773 PO (18:49)
[2023-01-29 19:00] VITALS: BP 95/63
== END 2023-01-29 19:03 | disposition home or self-care (01) ==
LOC: EDUNIT# 17:30 → ER 17:33
DX: S13.9XXA Sprain of joints and ligaments of unspecified parts of neck, initial encounter (principal); S63.502A Unspecified sprain of left wrist, initial encounter; S80.211A Abrasion, right knee, initial encounter; S80.811A Abrasion, right lower leg, initial encounter; S00.81XA Abrasion of other part of head, initial encounter; V18.4XXA Pedal cycle driver injured in noncollision transport accident in traffic accident, initial encounter; Y93.55 Activity, bike riding
CPT/HCPCS: 70450; 70486; 71045; 72125; 73110; 73130; 73562; 73590

== ENCOUNTER → 2023-03-07 | Outpatient (CLI) | payer BC ==
[~2023-03-07] MED LIST changes: +ACHD5005 PO; +IBUP-1773 PO
--- NOTE | 2023-03-07 12:25 | Diagnostic Imaging Report ---
Indication: Routine screening. Comparison is made with prior mammogram 01/15/2022 and 02/01/2020. 2-D and 3-D bilateral screening mammography was performed with CAD. The current study was also evaluated with a Computer Aided Detection (CAD) system. Both breasts are heterogeneously dense, limiting the sensitivity of mammography. Intraparenchymal lymph node upper outer right breast is stable. No new mass or malignant-appearing microcalcifications are identified. The axillae are unremarkable. IMPRESSION: BI-RADS Category 2 No mammographic features suspicious for malignancy are identified. ACR BI-RADS Category 2: Benign findings. Result letter will be mailed to the patient. Note: At least 10% of breast cancer is not imaged by mammography. Dictated by: Dictated on workstation # [id number]
== END ==
LOC: RAD 07:59
PROVIDERS: ATTEND Nurse Practitioner Family
DX: Z12.31 Encounter for screening mammogram for malignant neoplasm of breast (principal)
CPT/HCPCS: 77063; 77067

== ENCOUNTER 2023-06-14 13:32 | Emergency (ER) | payer MEDICAID ==
[~2023-06-14] VITALS: Ht 170.1 cm; Wt 88.4 kg
--- NOTE | 2023-06-14 14:21 | ED General ---
General Chief Complaint: Cardiac/General Problems Stated Complaint: COVID+ | LOW HEART RATE Nursing Triage Note: PT AMB TO RM 9 WITH CC OF IRREGULAR HEART RATE SINCE LAST PM. PT REPORTS HIGH HEART RATE OF 164BPM LAST PM WHILE WALKING TO HER COUCH. PT STATES UNSURE IF PAIN IN CHEST LAST PM. PT REPORTS TESTED POS FOR COVID ON 06/11. PT DENIES CARDIAC HX. PT DENIES CP AT TIME OF TRIAGE Source of Information: Patient Exam Limitations: No Limitations History of Present Illness Date Seen by Provider: Jun 14, 2023 Allergies and Home Medications Allergies Coded Allergies: Penicillins (Verified Allergy, Mild, 08/17/18) sulfamethoxazole (Verified Allergy, Mild, HIVES, 08/17/18) trimethoprim (Verified Allergy, Mild, HIVES, 08/17/18) Patient Home Medication List Famotidine (Famotidine) 20 Mg Tablet, (Reported) Entered as Reported by: FELICITAS HUFFMAN on 11/05/202318 Hydrocodone/Acetaminophen (Hydrocodone-Acetamin 5-325 mg) 5 Mg-325 Mg Tablet, 1 TAB PO Q4H PRN for PAIN-MODERATE (5-7) Prescribed by: KORY ALATORRE on 01/29/23 184 Ibuprofen (Ibuprofen) 600 Mg Tablet, 600 MG PO Q8H Prescribed by: KORY ALATORRE on 01/29/23 184 Loratadine (Loratadine) 10 Mg Tablet, (Reported) Entered as Reported by: FELICITAS HUFFMAN on 11/05/202318 Ondansetron (Ondansetron Odt) 4 Mg Tab.rapdis, 4 MG PO Q6H PRN for NAUSEA/VOMITING Prescribed by: NERY BERMEO on 12/03/20 2308 Ondansetron (Ondansetron Odt) 4 Mg Tab.rapdis, 4 MG SL Q4H PRN for NAUSEA/VOMITING Prescribed by: GARRETT DE LEÓN on 06/14/23 1524 Spironolactone (Spironolactone) 25 Mg Tablet, (Reported) Entered as Reported by: FELICITAS HUFFMAN on 11/05/20 2319 Past Nvgjzvp-Llztqb-Hlhxes Hx Patient Social History Tobacco Use?: No Substance use?: No Alcohol Use?: No Immunizations Up To Date Tetanus Booster (TDap): Less than 5yrs Seasonal Allergies Seasonal Allergies: No Past Medical History Surgery/Hospitalization HX: DENIES Surgeries: Yes (08/09/18 LEEP BX, 08/22/18--NORMAL EGD/COLONOSCOPY) Section, Gallbladder Respiratory: No Cardiac: Yes Palpitations Neurological: Yes Headaches /Migraines Reproductive Disorders: Yes Female Reproductive Disorders: Menstrual Problems, Polycystic 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 Sexually Transmitted Disease: Yes (HPV) HIV/AIDS: No Genitourinary: No Gastrointestinal: Yes Chronic Constipation Musculoskeletal: Yes Degenerate Disk Disease, Chronic Back Pain Endocrine: Yes (PCOS/INSULIN RESISTANCE-PER PT) HEENT: Yes (GLASSES) Loss of Vision: Bilateral Hearing Impairment: Denies Cancer: No Psychosocial: Yes Anxiety Integumentary: No Blood Disorders: No Adverse Reaction/Blood Tranf: No (N/A) Family Medical History Heart Disease, Cancer, Diabetes Physical Exam Vital Signs Vital Signs - First Documented 06/14/23 13:45 Temp 36.6 Pulse 94 Resp 16 B/P (MAP) 130/68 (88) Pulse Ox 98 O2 Delivery Room Air Capillary Refill : Less Than 3 Seconds Height, Weight, BMI Height: 5'9.00" Weight: 200lbs. 0.0oz. 90.080366tr; 30.00 BMI Method:Stated Progress/Results/Core Measures Suspected Sepsis SIRS Temperature: Pulse: 94 Respiratory Rate: 16 Laboratory Tests 06/14/23 14:30: White Blood Count 6.2 Blood Pressure 130 /68 Mean: 88 Laboratory Tests 06/14/23 14:30: Creatinine 0.78, Platelet Count 249 Results/Orders Lab Results Laboratory Tests Test 06/14/23 14:30 Range/Units White Blood Count 6.2 4.3-11.0 10^3/uL Red Blood Count 5.33 H 3.80-5.11 10^6/uL Hemoglobin 16.1 H 11.5-16.0 g/dL Hematocrit 48 35-52 % Mean Corpuscular Volume 90 80-99 fL Mean Corpuscular Hemoglobin 30 25-34 pg Mean Corpuscular Hemoglobin Concent 34 32-36 g/dL Red Cell Distribution Width 11.4 10.0-14.5 % Platelet Count 249 130-400 10^3/uL Mean Platelet Volume 9.6 9.0-12.2 fL Immature Granulocyte % (Auto) 0 % Neutrophils (%) (Auto) 53 42-75 % Lymphocytes (%) (Auto) 32 12-44 % Monocytes (%) (Auto) 13 H 0-12 % Eosinophils (%) (Auto) 1 0-10 % Basophils (%) (Auto) 1 0-10 % Neutrophils # (Auto) 3.3 1.8-7.8 10^3/uL Lymphocytes # (Auto) 1.9 1.0-4.0 10^3/uL Monocytes # (Auto) 0.8 0.0-1.0 10^3/uL Eosinophils # (Auto) 0.1 0.0-0.3 10^3/uL Basophils # (Auto) 0.0 0.0-0.1 10^3/uL Immature Granulocyte # (Auto) 0.0 0.0-0.1 10^3/uL D-Dimer 0.32 0.00-0.49 UG/ML Sodium Level 139 135-145 MMOL/L Potassium Level 4.2 3.6-5.0 MMOL/L Chloride Level 104 98-107 MMOL/L Carbon Dioxide Level 27 21-32 MMOL/L Anion Gap 8 5-14 MMOL/L Blood Urea Nitrogen 8 7-18 MG/DL Creatinine 0.78 0.60-1.30 MG/DL Estimat Glomerular Filtration Rate 97 BUN/Creatinine Ratio 10 Glucose Level 87 70-105 MG/DL Calcium Level 9.3 8.5-10.1 MG/DL Magnesium Level 2.3 1.6-2.4 MG/DL Troponin I < 0.028 <0.028 NG/ML Serum Test, Qualitative NEGATIVE NEGATIVE My Orders Orders - GARRETT PURVIS MD Basic Metabolic Panel (06/14/23 14:16) Cbc And Automated Diff (06/14/23 14:16) Fibrin Degradation Products (06/14/23 14:16) Hcg,Qualitative Serum (06/14/23 14:16) Magnesium (06/14/23 14:16) Troponin I [place] (06/14/23 14:16) Ed Iv/Invasive Line Start (06/14/23 14:16) Lactated Ringers 1,000 Ml (Lactated Ring (06/14/23 14:30) Ondansetron Injection (Ondansetron Inj (06/14/23 14:30) Chest 1 View, Ap/Pa Only (06/14/23 14:18) Ekg Tracing (06/14/23 14:18) Monitor-Rhythm Ecg Trace Only (06/14/23 14:18) Medications Given in ED Current Medications Medications Dose Ordered Sig/Jacklyn Route Start Time Stop Time Status Last Admin Dose Admin Lactated Ringer's 1,000 ml @ 0 mls/hr Q0M ONCE IV 06/14/23 14:30 06/14/23 14:31 DC 06/14/23 14:33 1,000 MLS/HR Ondansetron HCl 4 mg ONCE ONCE IVP 06/14/23 14:30 06/14/23 14:31 DC 06/14/23 14:33 4 MG Vital Signs/I&O 06/14/23 13:45 Temp 36.6 Pulse 94 Resp 16 B/P (MAP) 130/68 (88) Pulse Ox 98 O2 Delivery Room Air Capillary Refill : Less Than 3 Seconds Blood Pressure Mean: 88 ECG Initial ECG Impression Date: Jun 14, 2023 Initial ECG Impression Time: 14:34 Initial ECG Rate: 77 Initial ECG Rhythm: Normal Sinus Initial ECG Intervals: Normal Initial ECG Impression: Normal Comment Normal sinus rhythm with no ST elevation or depression. No abnormal intervals or axis deviation. Diagnostic Imaging Diagonstic Imaging: Xray Plain Films/CT/US/NM/MRI: chest Comments NAME: ERROL RAMOS [facility] REC#: [id number] PT STATUS: REG ER : 1980 PHYSICIAN: GARRETT PURVIS MD ADMIT DATE: 06/14/23/ER Draft Date of Exam:06/14/23 CHEST 1 VIEW, AP/PA ONLY EXAMINATION: Chest, one view. HISTORY: Chest pain. COMPARISON: 01/29/2023. FINDINGS: No edema or pneumonia. No pleural effusion or pneumothorax. Heart size is normal. IMPRESSION: 1. Clear lungs. Dictated on workstation # [id number] Dict: 06/14/23 1446 Trans: 06/14/23 1503 [id number] Interpreted by: VIBHA CRESPO MD Departure Impression Primary Impression: COVID-19 Additional Impressions: Lightheadedness Chest discomfort Tachycardia Nausea Disposition: 01 HOME, SELF-CARE Condition: Improved Departure-Patient Inst. Decision time for Depature: 15:20 Referrals: JASVIR BRANNON MD (PCP/Family) Primary Care Physician Patient Instructions: COVID-19 ED Add. Discharge Instructions: Continue to drink plenty of clear liquids to stay well-hydrated. Use the Zofran (ondansetron) as prescribed for nausea and vomiting. For pain and fevers you may take Tylenol (acetaminophen) up to 1000 mg every 6 hours as needed. You may also take ibuprofen up to 600 mg every 6 hours as needed if Tylenol is not sufficient. You should remain in quarantine through Tuesday. If symptoms are significantly improved at that time, you may end your quarantine but should mask for an additional 5 days afterwards when around others. Return to care if you have worsening symptoms despite following these instructions. All discharge instructions reviewed with patient and/or family. Voiced understanding. Scripts Ondansetron (Ondansetron Odt) 4 Mg Tab.rapdis 4 MG SL Q4H PRN for NAUSEA/VOMITING, #10 TAB Prov: GARRETT PURVIS MD 06/14/23 GARRETT PURVIS MD Jun 14, 2023 14:21
[2023-06-14] MEDS ORDERED: ONDANSETRON INJECTION 4 MG/2 ML (SDV) IVP ONE (14:30)
[2023-06-14] MEDS ORDERED: LACTATED RINGERS 1,000 ML 1,000 ML IV ONE (14:30)
[2023-06-14 14:41] LABS: BASOPHILS % (AUTO) 1 % (0-10); EOSINOPHILS # (AUTO) 0.1 10^3/uL (0.0-0.3); EOSINOPHILS % (AUTO) 1 % (0-10); HEMATOCRIT 48 % (35-52); HEMOGLOBIN 16.1 g/dL (11.5-16.0); LYMPHOCYTES # (AUTO) 1.9 10^3/uL (1.0-4.0); LYMPHOCYTES % (AUTO) 32 % (12-44); MEAN CORPUSCULAR HEMOGLOBIN 30 pg (25-34); MEAN CORPUSCULAR HGB CONC 34 g/dL (32-36); MEAN CORPUSCULAR VOLUME 90 fL (80-99); MEAN PLATELET VOLUME 9.6 fL (9.0-12.2); MONOCYTES # (AUTO) 0.8 10^3/uL (0.0-1.0); MONOCYTES % (AUTO) 13 % (0-12); NEUTROPHILS # (AUTO) 3.3 10^3/uL (1.8-7.8); NEUTROPHILS % (AUTO) 53 % (42-75); PLATELET COUNT 249 10^3/uL (130-400); WHITE BLOOD COUNT 6.2 10^3/uL (4.3-11.0)
[2023-06-14 14:56] LABS: CHLORIDE 104 MMOL/L (98-107); POTASSIUM 4.2 MMOL/L (3.6-5.0); SODIUM 139 MMOL/L (135-145)
[2023-06-14 14:57] LABS: CALCIUM 9.3 MG/DL (8.5-10.1); GLUCOSE 87 MG/DL (70-105)
[2023-06-14 14:59] LABS: CARBON DIOXIDE 27 MMOL/L (21-32)
[2023-06-14 15:01] LABS: CREATININE SERUM 0.78 MG/DL (0.60-1.30); GFR ESTIMATED 97
[2023-06-14 15:02] LABS: BUN/CREATININE RATIO 10
[2023-06-14 15:03] LABS: MAGNESIUM 2.3 MG/DL (1.6-2.4)
--- NOTE | 2023-06-14 15:03 | Diagnostic Imaging Report ---
EXAMINATION: Chest, one view. HISTORY: Chest pain. COMPARISON: 01/29/2023. FINDINGS: No edema or pneumonia. No pleural effusion or pneumothorax. Heart size is normal. IMPRESSION: 1. Clear lungs. Dictated by: Dictated on workstation # [id number]
[2023-06-14 15:11] VITALS: BP_SYST 101; BP_SYST 112; BP_SYST 95; BP_DIAS 65; BP_DIAS 69; BP_DIAS 70
[2023-06-14] MEDS ORDERED: ONDA4TAB11 SL (15:24)
[2023-06-14 15:43] VITALS: BP 103/73
== END 2023-06-14 15:43 | disposition home or self-care (01) ==
LOC: EDUNIT# 13:32 → ER 13:34
DX: U07.1 COVID-19 (principal); R11.0 Nausea; R07.89 Other chest pain; R42 Dizziness and giddiness; R00.0 Tachycardia, unspecified
CPT/HCPCS: 36415; 71045; 80048; 83735; 84484; 84703; 85025; 85379; 93005; 93041